=== PATIENT | female | born 1945 ===

== ENCOUNTER 2020-10-19 16:32 | Outpatient (REF) | payer MEDICARE, MEDICAID, SELFPAY ==
--- NOTE | ~2020-10-19 | XR_ITS ---
EXAMINATION: XR HAND, LEFT CLINICAL INFORMATION: Pain in unspecified hand COMPARISON: None TECHNIQUE: PA, lateral, and oblique views of the left hand. FINDINGS: Osteopenia. No fracture or dislocation. The second through fifth metacarpal phalangeal joints are fixed in flexion. There is mild multifocal interphalangeal joint space narrowing. There is radiocarpal joint space narrowing. XR/XR hand LT 2V IMPRESSION: No acute osseous abnormality of the left hand. Multifocal osteoarthritis and osteopenia.
--- NOTE | ~2020-10-19 | XR_ITS ---
EXAMINATION: XR HAND, RIGHT CLINICAL INFORMATION: Pain in unspecified hand COMPARISON: None TECHNIQUE: PA, lateral, and oblique views of the right hand. FINDINGS: Osteopenia. No fracture. No dislocation. The patient was not able to fully cooperate for standard views. The second through fifth metacarpophalangeal joints are fixed in flexion. XR/XR hand RT 2V IMPRESSION: Osteopenia. No acute osseous abnormality.
[2020-10-19 17:55] LABS: MANUAL DIFF FLAG NO
[2020-10-19 18:01] LABS: Basophils Absolute Auto 0.1 X10*3/uL (0.0-0.2); Basophils Percent Auto 0.8 % (0-2); Eosinophils Percent Auto 0.6 % (0-4); Hematocrit 38.4 % (37-47); Hemoglobin 13.1 g/dl (12.0-16.0); Imm Gran Abs Auto 0.02 X10*3/uL (0.00-0.03); Imm Gran Pct Auto 0.3 % (0.0-0.4); Lymphocytes Absolute Auto 2.2 X10*3/uL (1.2-4.9); Lymphocytes Percent Auto 33.5 % (20-40); Mean Corpuscular HGB Conc 34.1 g/dl (31.0-35.0); Mean Corpuscular Hemoglobin 29.6 pg (27.0-33.0); Mean Corpuscular Volume 86.9 fL (80-98); Mean Platelet Volume 9.9 fL (9.4-12.3); Monocytes Absolute Auto 0.4 X10*3/uL (0.1-1.2); Monocytes Percent Auto 5.6 % (2-11); Neutrophils Absolute Auto 3.8 X10*3/uL (2.0-8.3); Neutrophils Percent Auto 59.2 % (45-73); Platelet Count 267 X10*3/uL (160-400); Red Blood Count 4.42 X10*6/uL (4.20-5.50); Red Cell Distribution Width 12.3 % (11.0-16.0); White Blood Count 6.4 X10*3/uL (4.8-10.8)
[2020-10-19 18:15] LABS: Alanine Aminotransferase 10 U/L (0-31); Albumin Level 3.9 g/dL (3.5-5.0); Alkaline Phosphatase 96 U/L (39-117); Anion Gap 13 (12-20); Aspartate Amino Transferase 17 U/L (5-31); Bilirubin Total 0.4 mg/dL (0.0-1.0); Blood Urea Nitrogen 8 mg/dL (9-16); Calcium 9.1 mg/dL (8.4-10.2); Carbon Dioxide 28 mmol/L (22-29); Chloride 94 mmol/L (96-108); Cholesterol 165 mg/dL; Estimated Glomerular Filt Rate > 60; Glucose Fasting 91 mg/dL (60-99); HDL Cholesterol 72 mg/dL; LDL Cholesterol Calculated 73 mg/dl; Potassium 3.7 mmol/L (3.3-5.1); Rheumatoid Factor 126.7 IU/mL (<15.0); Sodium 131 mmol/L (135-145); Total Protein 6.7 g/dL (6.5-8.0); Triglycerides 101 mg/dL
[2020-10-19 18:37] LABS: TSH reflex Free T4 1.13 uIU/mL (0.32-4.0)
[2020-10-19 18:46] LABS: Erythrocyte Sedimentation Rate 7 MM/HR (0-20)
[2020-10-19 18:48] LABS: Folate 6.4 ng/mL (> or = 4.0); Vitamin B12 293 pg/mL (200-900)
== END 2020-10-19 16:33 | disposition home or self-care (01) ==
LOC: HO.XRAY 16:32
PROVIDERS: PCP Family Medicine; Visit Provider Family Medicine
DX: Z00.00 Encounter for general adult medical examination without abnormal findings (principal); F32.9 Major depressive disorder, single episode, unspecified; M19.041 Primary osteoarthritis, right hand; M19.042 Primary osteoarthritis, left hand; E53.8 Deficiency of other specified B group vitamins; R41.3 Other amnesia; M79.643 Pain in unspecified hand
CPT/HCPCS: 36415; 73120; 80053; 80061; 82607; 82746; 84443; 85025; 85652; 86431

== ENCOUNTER 2020-12-12 16:15 | Outpatient (REF) | payer MEDICARE, MEDICAID, SELFPAY ==
--- NOTE | ~2020-12-12 | MM_ITS ---
EXAMINATION: MM SCREENING DIGITAL BREAST TOMOSYNTHESIS, BILATERAL CLINICAL INFORMATION: Screening. Asymptomatic. Age 75. No prior mammography. No known family history breast cancer. The lifetime risk of breast cancer based on the Tyrer-Cuzick Model is 2%. COMPARISON: None (current study represents initial baseline exam). TECHNIQUE: Digital breast tomosynthesis is performed in both the craniocaudal and mediolateral oblique views along with computer-aided detection (CAD). Synthesized 2D images are generated from the tomosynthesis. FINDINGS: There are scattered areas of fibroglandular density (ACR BI-RADS breast composition Category b). There is no mass or architectural abnormality. No focal duct ectasia. No abnormal calcifications. The skin contours are smooth. MM/MM tomosynthesis screening BI IMPRESSION: No mammographic evidence of malignancy. ASSESSMENT: BI-RADS 1: Negative RECOMMENDATION: Routine annual mammography screening. This patient's information was entered into a reminder system with a target due date for their next mammogram.
== END 2020-12-12 16:16 | disposition home or self-care (01) ==
LOC: HO.MAMMO 16:15
PROVIDERS: Visit Provider Family Medicine
DX: Z12.31 Encounter for screening mammogram for malignant neoplasm of breast (principal)
CPT/HCPCS: 77063; 77067

== ENCOUNTER 2021-05-28 15:19 | Outpatient (REF) | payer MEDICARE, MEDICAID, SELFPAY ==
--- NOTE | ~2021-05-28 | XR_ITS ---
EXAMINATION: SKULL 4 VIEWS. CHEST 2 VIEWS CLINICAL INFORMATION: Nicotine dependence. Headache. COMPARISON: None TECHNIQUE: Skull 4 views. Chest 2 views. FINDINGS: CHEST: The lungs are well-expanded and clear. The heart size and pulmonary vascularity are normal. There is superior endplate compression deformity of the L1 vertebra of indeterminate age. SKULL: There is no gross bony abnormality seen. No lytic or sclerotic process. Bilateral paranasal sinuses and mastoid air cells are well-aerated. The soft tissues are normal. XR/XR chest 2V IMPRESSION: No acute cardiopulmonary process is seen. L1 superior endplate compression fracture with approximate loss of 10% vertebral height of indeterminate age. If patient has mid back pain further evaluation with MRI or bone scan can be performed. Unremarkable skull exam.
--- NOTE | ~2021-05-28 | XR_ITS ---
EXAMINATION: SKULL 4 VIEWS. CHEST 2 VIEWS CLINICAL INFORMATION: Nicotine dependence. Headache. COMPARISON: None TECHNIQUE: Skull 4 views. Chest 2 views. FINDINGS: CHEST: The lungs are well-expanded and clear. The heart size and pulmonary vascularity are normal. There is superior endplate compression deformity of the L1 vertebra of indeterminate age. SKULL: There is no gross bony abnormality seen. No lytic or sclerotic process. Bilateral paranasal sinuses and mastoid air cells are well-aerated. The soft tissues are normal. XR/XR skull <4V IMPRESSION: No acute cardiopulmonary process is seen. L1 superior endplate compression fracture with approximate loss of 10% vertebral height of indeterminate age. If patient has mid back pain further evaluation with MRI or bone scan can be performed. Unremarkable skull exam.
== END 2021-05-28 15:20 | disposition home or self-care (01) ==
LOC: HO.XRAY 15:19
PROVIDERS: PCP Family Medicine; Visit Provider Family Medicine
DX: R51.9 Headache, unspecified (principal); T14.8XXA Other injury of unspecified body region, initial encounter; F17.200 Nicotine dependence, unspecified, uncomplicated
CPT/HCPCS: 70250; 71046

== ENCOUNTER → 2021-06-15 13:00 | Outpatient (BNVA) | payer MEDICARE, MEDICAID, SELFPAY | PROVIDERS: PCP Family Medicine; Visit Provider Nurse Practitioner Family | DX: F03.90 Unspecified dementia, unspecified severity, without behavioral disturbance, psychotic disturbance, mood disturbance, and anxiety (principal); G47.00 Insomnia, unspecified | CPT/HCPCS: 99202 ==

== ENCOUNTER → 2021-07-13 15:09 | Outpatient (BNVA) | payer MEDICARE, MEDICAID, SELFPAY | PROVIDERS: PCP Family Medicine; Visit Provider Nurse Practitioner Family | DX: F03.90 Unspecified dementia, unspecified severity, without behavioral disturbance, psychotic disturbance, mood disturbance, and anxiety (principal); G47.00 Insomnia, unspecified | CPT/HCPCS: 99212 ==

== ENCOUNTER → 2021-07-25 07:57 | Outpatient (BNVA) | payer MEDICARE, MEDICAID, SELFPAY | PROVIDERS: PCP Family Medicine; Referring Provider Family Medicine; Visit Provider Physician Assistant | DX: R19.5 Other fecal abnormalities (principal) | CPT/HCPCS: 99202 ==

== ENCOUNTER → 2021-11-07 08:03 | Outpatient (BNVA) | payer MEDICARE, MEDICAID, SELFPAY | PROVIDERS: PCP Family Medicine; Visit Provider Nurse Practitioner Family | DX: G47.00 Insomnia, unspecified (principal); F03.90 Unspecified dementia, unspecified severity, without behavioral disturbance, psychotic disturbance, mood disturbance, and anxiety | CPT/HCPCS: 99212 ==

== ENCOUNTER 2021-11-13 13:29 | Emergency (ER) | payer MEDICARE, MEDICAID, SELFPAY ==
[2021-11-13 14:51] VITALS: BP 176/65; PULSE 64; RESP 18; TEMP 36.6; O2SAT 96; BMI 21.7
[2021-11-13] MEDS: Ondansetron ODT 4 MG TAB.RAPDIS TRANSLINGU (15:06)
[2021-11-13 15:26] LABS: MANUAL DIFF FLAG NO
[2021-11-13 15:28] LABS: Appearance Urine CLEAR; Color Urine DK YELLOW; Glucose Urine UA NEG (NEG); Leukocyte Esterase Urine NEG (NEG); Nitrite Urine NEG (NEG); PH 6.5 (5.0-8.0); Specific Gravity - Urine 1.025 (1.005-1.025); UACC Culture Trigger NO; Urine Blood TRACE (NEG); Urine Ketones 5 MG/DL (NEG); Urine Protein 1+ MG/DL (NEG-TRACE)
[2021-11-13 15:39] LABS: Basophils Percent Auto 0.3 % (0-2); Eosinophils Percent Auto 0.1 % (0-4); Hematocrit 37.9 % (37.0-47.0); Hemoglobin 12.8 g/dl (12.0-16.0); Imm Gran Abs Auto 0.03 X10*3/uL (0.00-0.03); Imm Gran Pct Auto 0.4 % (0.0-0.4); Lymphocytes Absolute Auto 1.3 X10*3/uL (1.2-4.9); Lymphocytes Percent Auto 18.7 % (20-40); Mean Corpuscular HGB Conc 33.8 g/dl (31.0-35.0); Mean Corpuscular Volume 88.8 fL (80.0-98.0); Mean Platelet Volume 8.7 fL (9.4-12.3); Monocytes Absolute Auto 0.2 X10*3/uL (0.1-1.2); Monocytes Percent Auto 3.3 % (2-11); Neutrophils Absolute Auto 5.2 x10*3/uL (2.0-8.3); Neutrophils Percent Auto 77.2 % (45-73); Platelet Count 341 X10*3/uL (160-400); Red Blood Count 4.27 X10*6/uL (4.20-5.50); Red Cell Distribution Width 12.1 % (11.0-16.0); White Blood Count 6.7 X10*3/uL (4.8-10.8)
[2021-11-13 15:42] LABS: Amorphous Sediment Urine 2+ /LPF; Mucus Urine 4+ /LPF; Squamous Epithelial Cell Urine 2+ /LPF; WBC Urine 0 /HPF (0-4)
[2021-11-13 15:43] LABS: Alanine Aminotransferase 35 U/L (0-31); Albumin Level 4.3 g/dL (3.5-5.0); Alkaline Phosphatase 121 U/L (39-117); Anion Gap 11 (12-20); Aspartate Amino Transferase 36 U/L (5-31); Bilirubin Direct 0.4 mg/dL (0.0-0.5); Bilirubin Total 0.8 mg/dL (0.0-1.0); Blood Urea Nitrogen 10 mg/dL (9-16); Calcium 9.3 mg/dL (8.4-10.2); Carbon Dioxide 26 mmol/L (22-29); Chloride 97 mmol/L (96-108); Estimated Glomerular Filt Rate > 60; Glucose Random 132 mg/dL (60-115); Potassium 4.2 mmol/L (3.3-5.1); Sodium 130 mmol/L (135-145); Total Protein 7.4 g/dL (6.5-8.0)
== END 2021-11-13 21:45 | disposition left against medical advice (07) ==
PROVIDERS: Emergency Provider Emergency Medicine; PCP Family Medicine
DX: R10.9 Unspecified abdominal pain (principal); R11.10 Vomiting, unspecified; Z87.891 Personal history of nicotine dependence
CPT/HCPCS: 36415; 80048; 80076; 81001; 85025; 99282; 99283

== ENCOUNTER → 2022-01-07 09:04 | Outpatient (BNVA) | payer MEDICARE, MEDICAID, SELFPAY | PROVIDERS: PCP Family Medicine; Visit Provider Nurse Practitioner Family | DX: G47.00 Insomnia, unspecified (principal); F03.90 Unspecified dementia, unspecified severity, without behavioral disturbance, psychotic disturbance, mood disturbance, and anxiety; Z79.899 Other long term (current) drug therapy | CPT/HCPCS: 99212 ==

== ENCOUNTER 2022-01-21 08:45 | Outpatient (REF) | payer MEDICARE, MEDICAID, SELFPAY ==
--- NOTE | ~2022-01-21 | MM_ITS ---
EXAMINATION: MM SCREENING DIGITAL BREAST TOMOSYNTHESIS, BILATERAL CLINICAL INFORMATION: Screening. Asymptomatic. The lifetime risk of breast cancer based on the Tyrer-Cuzick Model is 2%. COMPARISON: Mammography: 12/12/2020 (baseline) TECHNIQUE: Digital breast tomosynthesis is performed in both the craniocaudal and mediolateral oblique views along with computer-aided detection (CAD). Synthesized 2D images are generated from the tomosynthesis. Technologist notes technically challenging exam. Images tailored to patient capabilities. FINDINGS: There are scattered areas of fibroglandular density (ACR BI-RADS breast composition Category b). There are no significant masses, abnormal calcifications, or other abnormalities. Parenchymal pattern is similar to prior baseline exam. The visualized axilla and skin contours are unremarkable. MM/MM tomosynthesis screening BI IMPRESSION: -No mammographic evidence of malignancy. -Technically challenging exam tailored to patient capabilities. ASSESSMENT: BI-RADS 1: Negative RECOMMENDATION: Routine annual mammography screening. This patient's information was entered into a reminder system with a target due date for their next mammogram.
== END 2022-01-21 08:46 | disposition home or self-care (01) ==
LOC: HO.MAMMO 08:45
PROVIDERS: PCP Family Medicine; Visit Provider Family Medicine
DX: Z12.31 Encounter for screening mammogram for malignant neoplasm of breast (principal)
CPT/HCPCS: 77063; 77067

== ENCOUNTER 2022-03-02 07:53 | Outpatient (REF) | payer MEDICARE, MEDICAID, SELFPAY ==
[2022-03-02 09:19] LABS: Alanine Aminotransferase 23 U/L (0-31); Albumin Level 4.1 g/dL (3.5-5.0); Alkaline Phosphatase 102 U/L (39-117); Anion Gap 16 (12-20); Aspartate Amino Transferase 23 U/L (5-31); Bilirubin Total 0.8 mg/dL (0.0-1.0); Blood Urea Nitrogen 9 mg/dL (9-16); Calcium 9.2 mg/dL (8.4-10.2); Carbon Dioxide 22 mmol/L (22-29); Chloride 102 mmol/L (96-108); Cholesterol 174 mg/dL; Estimated Glomerular Filt Rate > 60; Glucose Fasting 84 mg/dL (60-99); HDL Cholesterol 50 mg/dL; LDL Cholesterol Calculated 100 mg/dl; Potassium 4.1 mmol/L (3.3-5.1); Sodium 136 mmol/L (135-145); Total Protein 6.8 g/dL (6.5-8.0); Triglycerides 122 mg/dL
[2022-03-02 09:26] LABS: TSH reflex Free T4 2.15 uIU/mL (0.32-4.0)
[2022-03-02 10:52] LABS: Appearance Urine Clear; Color Urine Yellow; Glucose Urine UA Negative (Negative); Leukocyte Esterase Urine Small (1+) (Negative); Nitrite Urine Negative (Negative); Specific Gravity - Urine 1.015 (1.005-1.025); UMIC TRIGGER UA YES; Urine Blood Negative (Negative); Urine Ketones Negative (Negative); Urine Protein Negative (Neg-Trace)
[2022-03-02 11:36] LABS: Bacteria Urine None Seen (None Seen); Squamous Epithelial Cell Urine 0-2 /HPF (0-2); WBC Urine 0-5 /HPF (0-5)
== END 2022-03-02 07:54 | disposition home or self-care (01) ==
LOC: HO.LAB 07:53
PROVIDERS: PCP Family Medicine; Visit Provider Family Medicine
DX: Z00.00 Encounter for general adult medical examination without abnormal findings (principal)
CPT/HCPCS: 36415; 80053; 80061; 81001; 81003; 84443

== ENCOUNTER 2022-03-26 11:41 | Outpatient (REF) | payer MEDICARE, MEDICAID, SELFPAY ==
[2022-03-26 14:15] LABS: Appearance Urine Cloudy; Color Urine Yellow; Glucose Urine UA Negative (Negative); Leukocyte Esterase Urine Large (3+) (Negative); Nitrite Urine Negative (Negative); PH 5.5 (5.0-9.0); Specific Gravity - Urine 1.015 (1.005-1.025); UMIC TRIGGER UA YES; Urine Blood Moderate (2+) (Negative); Urine Ketones Negative (Negative); Urine Protein 30 (1+) mg/dL (Neg-Trace)
[2022-03-26 14:19] LABS: Bacteria Urine None Seen (None Seen); Hyaline Casts Urine 0-2 /LPF (0-2); RBC Urine >20 /HPF (0-2); Squamous Epithelial Cell Urine 0-2 /HPF (0-2); WBC Urine >50 /HPF (0-5)
[2022-03-26 14:53] LABS: Creatinine Urine 98.01 mg/dL
== END 2022-03-26 11:42 | disposition home or self-care (01) ==
LOC: HO.LAB 11:41
PROVIDERS: Family Medicine; Visit Provider Hospitalist
DX: Z00.00 Encounter for general adult medical examination without abnormal findings (principal); N39.0 Urinary tract infection, site not specified; I10 Essential (primary) hypertension; R35.89 Other polyuria
CPT/HCPCS: 81001; 82043; 87086

== ENCOUNTER → 2022-04-03 15:42 | Outpatient (BNVA) | payer MEDICARE, MEDICAID, SELFPAY | PROVIDERS: PCP Family Medicine; Visit Provider Nurse Practitioner Family | DX: F03.90 Unspecified dementia, unspecified severity, without behavioral disturbance, psychotic disturbance, mood disturbance, and anxiety (principal); Z79.899 Other long term (current) drug therapy | CPT/HCPCS: 99212 ==

== ENCOUNTER 2022-04-16 14:11 | Outpatient (REF) | payer MEDICARE, MEDICAID, SELFPAY ==
[2022-04-16 15:23] LABS: Influenza A PCR NEGATIVE (Negative); Influenza B PCR NEGATIVE (Negative); Resp Syncy Virus RNA Qual PCR NEGATIVE (Negative); SARS COV2 PCR INHOUSE POSITIVE (Negative)
== END 2022-04-16 14:12 | disposition home or self-care (01) ==
LOC: HO.LNP 14:11
PROVIDERS: Visit Provider Nurse Practitioner Family
DX: Z20.822 Contact with and (suspected) exposure to COVID-19 (principal); J06.9 Acute upper respiratory infection, unspecified
CPT/HCPCS: 0241U

== ENCOUNTER → 2022-05-16 08:05 | Outpatient (BNVA) | payer MEDICARE, MEDICAID, SELFPAY | PROVIDERS: PCP Family Medicine; Visit Provider Nurse Practitioner Family | DX: F03.90 Unspecified dementia, unspecified severity, without behavioral disturbance, psychotic disturbance, mood disturbance, and anxiety (principal); G47.00 Insomnia, unspecified | CPT/HCPCS: 99212 ==

== ENCOUNTER 2022-07-18 08:46 | Outpatient (REF) | payer MEDICARE, MEDICAID, SELFPAY ==
--- NOTE | ~2022-07-18 | XR_ITS ---
EXAMINATION: XR HAND/WRIST, RIGHT XR HAND/WRIST, LEFT CLINICAL INFORMATION: Rheumatoid arthritis, unspecified. COMPARISON: 09/29/2020. TECHNIQUE: PA, lateral, oblique, and scaphoid views of the each hand and wrist. FINDINGS: LEFT HAND/WRIST: Bones are osteopenic. Soft tissues are swollen at the wrist. Questionable mild generalized joint space narrowing at the wrist. No focal erosions are identified. A carpal boss is noted. Slight palmar subluxation of the proximal phalangeal bases may be present at the index and long fingers. No soft tissue mineralization. Joint spaces appear relatively well preserved at the MCP and interphalangeal joints without significant osteophytes. RIGHT HAND/WRIST: Bones are markedly osteopenic. Mild osteoarthritis at the distal radioulnar joint. No acute fractures are identified. No appreciable erosions. Joint spaces appear relatively well preserved. Mild subluxation is suspected at the index and long finger proximal phalanges. No soft tissue mineralization. No acute fracture or acute malalignment. XR/XR hand wrist LT IMPRESSION: 1. Marked osteopenia in the hands and wrists. 2. No appreciable erosive changes to confirm rheumatoid arthritis in the hands and wrists, though there is likely mild palmar subluxation of the proximal phalanges at the index and long fingers bilaterally. This subluxation can be seen in the setting of rheumatoid arthritis, though is also present with other arthropathy such as systemic lupus erythematosus. 3. No soft tissue mineralization. 4. Carpal boss at the left wrist.
--- NOTE | ~2022-07-18 | XR_ITS ---
EXAMINATION: XR HAND/WRIST, RIGHT XR HAND/WRIST, LEFT CLINICAL INFORMATION: Rheumatoid arthritis, unspecified. COMPARISON: 09/29/2020. TECHNIQUE: PA, lateral, oblique, and scaphoid views of the each hand and wrist. FINDINGS: LEFT HAND/WRIST: Bones are osteopenic. Soft tissues are swollen at the wrist. Questionable mild generalized joint space narrowing at the wrist. No focal erosions are identified. A carpal boss is noted. Slight palmar subluxation of the proximal phalangeal bases may be present at the index and long fingers. No soft tissue mineralization. Joint spaces appear relatively well preserved at the MCP and interphalangeal joints without significant osteophytes. RIGHT HAND/WRIST: Bones are markedly osteopenic. Mild osteoarthritis at the distal radioulnar joint. No acute fractures are identified. No appreciable erosions. Joint spaces appear relatively well preserved. Mild subluxation is suspected at the index and long finger proximal phalanges. No soft tissue mineralization. No acute fracture or acute malalignment. XR/XR hand wrist RT IMPRESSION: 1. Marked osteopenia in the hands and wrists. 2. No appreciable erosive changes to confirm rheumatoid arthritis in the hands and wrists, though there is likely mild palmar subluxation of the proximal phalanges at the index and long fingers bilaterally. This subluxation can be seen in the setting of rheumatoid arthritis, though is also present with other arthropathy such as systemic lupus erythematosus. 3. No soft tissue mineralization. 4. Carpal boss at the left wrist.
[2022-07-18 09:52] LABS: MANUAL DIFF FLAG NO
[2022-07-18 10:44] LABS: Basophils Absolute Auto 0.1 X10*3/uL (0.0-0.2); Basophils Percent Auto 1.1 % (0-2); Eosinophils Percent Auto 0.5 % (0-4); Hematocrit 38.5 % (37.0-47.0); Hemoglobin 12.8 g/dl (12.0-16.0); Imm Gran Abs Auto 0.03 X10*3/uL (0.00-0.03); Imm Gran Pct Auto 0.5 % (0.0-0.4); Lymphocytes Absolute Auto 1.8 X10*3/uL (1.2-4.9); Lymphocytes Percent Auto 28.8 % (20-40); Mean Corpuscular HGB Conc 33.2 g/dl (31.0-35.0); Mean Corpuscular Hemoglobin 30.2 pg (27.0-33.0); Mean Corpuscular Volume 90.8 fL (80.0-98.0); Mean Platelet Volume 9.5 fL (9.4-12.3); Monocytes Absolute Auto 0.4 X10*3/uL (0.1-1.2); Monocytes Percent Auto 7.1 % (2-11); Neutrophils Absolute Auto 3.8 x10*3/uL (2.0-8.3); Platelet Count 324 X10*3/uL (160-400); Red Blood Count 4.24 X10*6/uL (4.20-5.50); Red Cell Distribution Width 12.3 % (11.0-16.0); White Blood Count 6.2 X10*3/uL (4.8-10.8)
[2022-07-18 11:12] LABS: Alanine Aminotransferase 21 U/L (0-31); Albumin Level 4.1 g/dL (3.5-5.0); Alkaline Phosphatase 98 U/L (39-117); Anion Gap 14 (12-20); Aspartate Amino Transferase 29 U/L (5-31); Bilirubin Total 0.7 mg/dL (0.0-1.0); Blood Urea Nitrogen 10 mg/dL (9-16); C Reactive Protein 0.44 mg/dL (< or = 0.50); Calcium 9.2 mg/dL (8.4-10.2); Carbon Dioxide 24 mmol/L (22-29); Chloride 101 mmol/L (96-108); Estimated Glomerular Filt Rate > 60; Glucose Random 104 mg/dL (60-115); Potassium 4.3 mmol/L (3.3-5.1); Sodium 135 mmol/L (135-145); Total Protein 6.9 g/dL (6.5-8.0)
[2022-07-18 11:53] LABS: Erythrocyte Sedimentation Rate 18 MM/HR (0-20)
[2022-07-19 04:29] LABS: HBc Num1 0.05 S/CO (0.00-0.79); HBsAGNum1 0.25 S/CO (0.00-0.99); Hepatitis A Antibody IgM 0.51 Index (0-0.79); Hepatitis B Core Antibody Nonreactive (Nonreactive); Hepatitis B Surface Antigen Negative (Negative); ~HepC Num1 0.09 S/CO (0.00-0.79); ~Hepatitis A Antibody IgM Nonreactive (Nonreactive); ~Hepatitis B Surface Antibody NONREACTIVE (Nonreactive); ~Hepatitis C Antibody Nonreactive (Nonreactive)
[2022-07-21 17:19] LABS: TS Negative Control Passed; TS Panel A 0; TS Panel B 0; TS Positive Control Passed; TSpotTB Negative (Negative)
[2022-07-22 13:39] LABS: IgA 421 mg/dL (70-320); IgG 1148 mg/dL (600-1540); IgM 102 mg/dL (50-300)
[2022-07-22 23:13] LABS: Prot Elec - Albumin 4.1 g/dL (3.8-4.8); Prot Elec - Alpha1 0.4 g/dL (0.2-0.3); Prot Elec - Beta 1 0.5 g/dL (0.4-0.6); Prot Elec - Beta 2 0.5 g/dL (0.2-0.5); Prot Elec - Gamma 1.1 g/dL (0.8-1.7); Prot Elec - Total Protein 7.4 g/dL (6.1-8.1)
== END 2022-07-18 08:47 | disposition home or self-care (01) ==
LOC: HO.LAB 08:46
PROVIDERS: PCP Family Medicine; Visit Provider Student in an Organized Health Care Education/Training Program
DX: M05.79 Rheumatoid arthritis with rheumatoid factor of multiple sites without organ or systems involvement (principal); M80.80XA Other osteoporosis with current pathological fracture, unspecified site, initial encounter for fracture; M21.949 Unspecified acquired deformity of hand, unspecified hand; F03.90 Unspecified dementia, unspecified severity, without behavioral disturbance, psychotic disturbance, mood disturbance, and anxiety; Z20.2 Contact with and (suspected) exposure to infections with a predominantly sexual mode of transmission; Z11.59 Encounter for screening for other viral diseases; Z11.7 Encounter for testing for latent tuberculosis infection; Z79.899 Other long term (current) drug therapy
CPT/HCPCS: 36415; 73110; 73130; 80053; 82784; 84165; 85025; 85652; 86140; 86334; 86481; 86704; 86706; 86709; 86803; 87340; 99202

== ENCOUNTER → 2022-08-15 09:30 | Outpatient (BNVA) | payer MEDICARE, MEDICAID, SELFPAY | PROVIDERS: PCP Family Medicine; Visit Provider Nurse Practitioner Family | DX: G47.00 Insomnia, unspecified (principal); F03.90 Unspecified dementia, unspecified severity, without behavioral disturbance, psychotic disturbance, mood disturbance, and anxiety | CPT/HCPCS: 99212 ==

== ENCOUNTER 2022-11-27 07:32 | Outpatient (REF) | payer MEDICARE, MEDICAID, SELFPAY ==
[2022-11-27 11:36] LABS: MANUAL DIFF FLAG NO
[2022-11-27 11:43] LABS: Basophils Absolute Auto 0.1 X10*3/uL (0.0-0.2); Basophils Percent Auto 1.2 % (0-2); Eosinophils Absolute Auto 0.1 X10*3/uL (0.0-0.4); Eosinophils Percent Auto 1.6 % (0-4); Hemoglobin 12.5 g/dl (12.0-16.0); Imm Gran Abs Auto 0.01 X10*3/uL (0.00-0.03); Imm Gran Pct Auto 0.2 % (0.0-0.4); Lymphocytes Absolute Auto 2.6 X10*3/uL (1.2-4.9); Lymphocytes Percent Auto 44.8 % (20-40); Mean Corpuscular HGB Conc 32.9 g/dl (31.0-35.0); Mean Corpuscular Hemoglobin 31.6 pg (27.0-33.0); Mean Platelet Volume 9.8 fL (9.4-12.3); Monocytes Absolute Auto 0.5 X10*3/uL (0.1-1.2); Monocytes Percent Auto 8.2 % (2-11); Neutrophils Absolute Auto 2.5 x10*3/uL (2.0-8.3); Platelet Count 281 X10*3/uL (160-400); Red Blood Count 3.96 X10*6/uL (4.20-5.50); Red Cell Distribution Width 13.2 % (11.0-16.0); White Blood Count 5.7 X10*3/uL (4.8-10.8)
[2022-11-27 11:51] LABS: Appearance Urine Cloudy; Color Urine Dark Yellow; Glucose Urine UA Negative (Negative); Leukocyte Esterase Urine Moderate (2+) (Negative); Nitrite Urine Negative (Negative); PH 5.5 (5.0-9.0); UMIC TRIGGER UA YES; Urine Blood Negative (Negative); Urine Ketones Trace mg/dL (Negative); Urine Protein Negative (Neg-Trace)
[2022-11-27 12:07] LABS: Bacteria Urine None Seen (None Seen); Calcium Oxalate Crystals Urine Present; Hyaline Casts Urine 0-2 /LPF (0-2); RBC Urine 0-2 /HPF (0-2)
[2022-11-27 12:15] LABS: Alanine Aminotransferase 24 U/L (0-31); Albumin Level 3.8 g/dL (3.5-5.0); Alkaline Phosphatase 87 U/L (39-117); Anion Gap 14 (12-20); Aspartate Amino Transferase 24 U/L (5-31); Bilirubin Total 0.5 mg/dL (0.0-1.0); Blood Urea Nitrogen 8 mg/dL (9-16); C Reactive Protein 0.23 mg/dL (< or = 0.50); Calcium 9.2 mg/dL (8.4-10.2); Carbon Dioxide 25 mmol/L (22-29); Chloride 103 mmol/L (96-108); Cholesterol 162 mg/dL; Estimated Glomerular Filt Rate > 60; Glucose Fasting 100 mg/dL (60-99); Glucose Random 100 mg/dL (60-115); HDL Cholesterol 61 mg/dL; LDL Cholesterol Calculated 73 mg/dl; Potassium 3.6 mmol/L (3.3-5.1); Sodium 138 mmol/L (135-145); Total Protein 6.5 g/dL (6.5-8.0); Triglycerides 142 mg/dL
[2022-11-27 12:22] LABS: Creatinine Urine 260.15 mg/dL; Microalbum/Creatinine Ratio Ur 6.9 ug/mg cr
[2022-11-27 12:31] LABS: TSH reflex Free T4 2.86 uIU/mL (0.32-4.0)
[2022-11-27 12:35] LABS: Erythrocyte Sedimentation Rate 6 MM/HR (0-20)
== END 2022-11-27 07:33 | disposition home or self-care (01) ==
LOC: HO.WFDLDS 07:32
PROVIDERS: Student in an Organized Health Care Education/Training Program; Visit Provider Family Medicine
DX: Z00.00 Encounter for general adult medical examination without abnormal findings (principal); M05.79 Rheumatoid arthritis with rheumatoid factor of multiple sites without organ or systems involvement; I10 Essential (primary) hypertension
CPT/HCPCS: 36415; 80053; 80061; 81001; 82043; 84443; 85025; 85652; 86140

== ENCOUNTER 2022-12-13 08:43 | Outpatient (REF) | payer MEDICARE, MEDICAID, SELFPAY ==
--- NOTE | ~2022-12-13 | MM_ITS ---
EXAMINATION: BONE DENSITOMETRY CLINICAL INDICATION: Osteoporosis. COMPARISON: This is the patient's baseline examination. TECHNIQUE: Using a [employer] DXA System (software version: 13.1) manufactured by [employer], dual-energy x-ray absorptiometry was performed of the lumbar spine and left hip. The images are of good technical quality. Summary results are attached. FINDINGS: LEFT FEMUR, NECK: BMD 0.567 g/cm2, Z-score -1.1, T-score -3.4, osteoporosis. LEFT FEMUR, TOTAL: BMD 0.618 g/cm2, Z-score -0.9, T-score -3.1, osteoporosis. AP SPINE L1-L4: BMD 0.455 g/cm2, Z-score -3.8, T-score -6.0, osteoporosis. IDENTIFIED RISK FACTORS: Menopause, dementia, history of fracture (adult), rheumatoid arthritis. HISTORY OF FRACTURE: Spine. MEDICATIONS: Calcium. MM/XR DEXA axial skeleton IMPRESSION: 1. DIAGNOSIS: Severe osteoporosis based on the lowest T-score value of -6.0 in the lumbar spine and history of fracture of spine applying World Health Organization criteria. 2. 10-YEAR FRACTURE RISK PREDICTION, FRAX: According to the guidelines, FRAX calculation should only be performed on patients in the osteopenia bone density category. Therefore, FRAX was not performed on this patient. 3. Treatment Recommendations: NOF guidelines recommend consideration for treatment in postmenopausal women and men age 50 and older presenting with the following: -A hip or vertebral (clinical or morphometric) fracture. -T-score less than or equal to -2.5 at the femoral neck or spine after appropriate evaluation to exclude secondary causes. -Low bone mass at the hip or spine and a 10-year fracture probability by FRAX of greater than or equal to 3% for hip fracture or greater than or equal to 20% for major osteoporotic fracture based on the [place] adapted WHO algorithm. 4. Other Recommendations: All treatment decisions require clinical judgment and consideration of individual patient factors, including patient preferences, comorbidities, previous drug use, risk factors not captured in the FRAX model (e.g. frailty, falls, vitamin D deficiency, increased bone turnover, interval significant decline in bone density) and possible under or overestimation of fracture risk by FRAX. Additional medical evaluation for secondary cause of low bone mineral density may be appropriate. FUTURE SCAN RECOMMENDATION: People with diagnosed cases of osteoporosis or at high risk for fracture should have regular bone mineral density tests. For patients eligible for Medicare, routine testing is allowed once every 2 years. The testing frequency can be increased to one year for patients who have rapidly progressing disease, those who are receiving or discontinuing medical therapy to restore bone mass, or have additional risk factors.
== END 2022-12-13 08:44 | disposition home or self-care (01) ==
LOC: HO.MAMMO 08:43
PROVIDERS: PCP Family Medicine; Visit Provider Student in an Organized Health Care Education/Training Program
DX: Z13.820 Encounter for screening for osteoporosis (principal); Z78.0 Asymptomatic menopausal state; S32.010D Wedge compression fracture of first lumbar vertebra, subsequent encounter for fracture with routine healing
CPT/HCPCS: 77080

== ENCOUNTER → 2022-12-13 08:45 | Outpatient (BNV) | payer MEDICARE, MEDICAID, SELFPAY | PROVIDERS: PCP Family Medicine; Visit Provider Radiology Diagnostic Radiology | DX: M81.0 Age-related osteoporosis without current pathological fracture (principal) | CPT/HCPCS: 77080 ==

== ENCOUNTER 2022-12-18 16:12 | Outpatient (AMB) | payer MEDICARE, MEDICAID, SELFPAY ==
[2022-12-18 16:11] VITALS: BP 130/84; PULSE 78; RESP 16; TEMP 36.7; O2SAT 98; BMI 22.7
--- NOTE | 2022-12-18 16:11 | A.OFFVIS_ITS ---
Intake Vital Signs 12/18/22 16:11 Height 5 ft Weight 116 lb BMI 22.7 BP 130/84 Blood Pressure Location Rt brachial Position Sitting Respiration 16 Pulse 78 Pulse Source Pulse Oximeter Temp 98.0 F Temp Source Skin Pulse Oximetry (%) 98 Oxygen Delivery Method Room Air Intake Visit Reasons: RA Parking Assistant Required: No Accompanied by: Daughter Allergies aspirin [From [facility]ige Aspirin] Allergy (Unknown, Verified 12/18/22 16:22) nose bleeds Medication List - Last Reconciled 12/18/22 by Maikol Brown MD cetirizine (All Day Allergy (cetirizine)) 10 mg PO DAILY PRN 90 days diclofenac sodium 1% (Voltaren Arthritis Pain) 2 grams topical QID 30 days donepezil 5 mg PO BEDTIME fluticasone propionate 50 mcg/actuation (Flonase Allergy Relief) 1 spray intranasal Q12H 30 days folic acid 1 mg PO DAILY melatonin 3 mg PO BEDTIME 30 days methotrexate sodium 15 mg (6 x 2.5 mg) PO QWEEK olopatadine 0.2% (Pataday Once Daily Relief) 1 drp ophthalmic (eye) DAILY PRN 30 days quetiapine (Seroquel) 1 tab at 5pm and 1 tab at bedtime. 30 days HPI HPI Comments History of Present Illness Details This is a 77 year old female with seropositive RA who returns for follow-up. She has history of dementia. She presents with her 2 daughters. He r daughter patient's symptoms seem to have improved on methotrexate. She ran out of methotrexate to 3 weeks ago and of her symptoms of joint pain recurred. She is currently doing well. She restarted methotrexate 2-3 weeks ago. Patient is walking well. Daughter cannot think of any side effects related to methotrexate. Daughter would like to discuss methotrexate versus Plaquenil risks and benefits. Initial history: 77-year-old female with past medical history of dementia presents with her daughter for evaluation of bilateral hand pain. Per daughter patient only started living with her children over the last 2 years. She has had hand pain and deformities for many years. Per daughter patient was never evaluated by a director communications and was never on DMARDs. She takes Tylenol as needed for pain in her hands. Does not use NSAIDs as they cause GI upset. Two years ago patient was wondering outside her house and fell and broke her back. [facility] Medical History Arthritis of both hands Cervicalgia Compression fracture of L1 vertebra Dementia Depression Screening for osteoporosis Sleep apnea Smoker Weakness of both lower extremities Surgical History Hx of tubal ligation Family History Mother Bone cancer Social History Household Members Other:: lives with daughter- Housing: Apartment Are you a primary youth career specialist to a significant other at home: No Do you presently have visiting nurse or other home services: Yes ([employer] 18/11) Alcohol intake: never Patient Tobacco Use Status: Former Tobacco user Quit Date: 2020 Tobacco use type: Cigarette Cigarette Packs Per Day: 3 Cigarettes Per Day: 60.0 Years Smoked: 40+ e-Cigarette/Vaping Use: Never Used Second Hand Smoke Exposure: No service: No Current occupational status: retired Current occupational exposures/hazards: No Cognitive needs: No Hearing needs: No Vision needs: No Review of Systems Const Details: ROS is obtained from patient's daughter due to patient's history of dementia. According to daughter patient has no complaints today Physical Exam Vital Signs: Last Vital Signs Temp 98.0 F 12/18/22 16:11 Pulse 78 12/18/22 16:11 Resp 16 12/18/22 16:11 Pulse Ox 98 12/18/22 16:11 Oxygen Delivery Method Room Air 12/18/22 16:11 BMI result Body Mass Index 22.7 Const General: cooperative and healthy appearing Nutritional Appearance: average body habitus Orientation/consciousness: oriented to person HEENT Head: Yes normocephalic and Yes atraumatic Resp Effort & Inspection: normal respiratory effort and able to speak in complete sentences Skin General skin exam: no rashes or lesions noted Neuro General: oriented to person Extrem Other: Extensive RA deformities of both hands Right wrist with piano conway sign. MCP enlargement with ulnar deviation of her fingers. No tender MCPs or PIP is in the right hand. Negative MCP squeeze test right hand Left wrist without swelling or tenderness. [place] neck deformities of the left hand fingers Nontender Tender MCPs and PIPs left hand Negative MCP squeeze test left hand Normal range of motion of both shoulders and elbows without pain No ankle swelling or tenderness Crowded toes bilaterally Negative MTP squeeze test No MTP tenderness Normal gait Assessment & Plan Assessment & Plan (1) Rheumatoid arthritis: Comment: +RF CCP pending erosive dx 07/18 but started many years ago MTX 07/18 effective Code(s): M06.9 - Rheumatoid arthritis, unspecified Qualifiers: Rheumatoid arthritis location: multiple sites Rheumatoid factor presence: with rheumatoid factor Qualified Code(s): M05.79 - Rheumatoid arthritis with rheumatoid factor of multiple sites without organ or systems involvement Plan: This is a 77-year-old female seropositive RA and dementia presents with her daughter for follow-up. Patient has had untreated seropositive erosive RA for many years without treatment. Methotrexate started 07/18 and it is effective. There are no swollen or tender joints on exam today. Continue methotrexate 15 mg once weekly and folic acid 1 mg daily Check safety labs in 2 months Follow-up in 4 months (2) Osteoporosis with fracture: Code(s): M80.80XA - Other osteoporosis with current pathological fracture, unspecified site, initial encounter for fracture Plan: Chest x-ray showed an L1 fracture in 2020. Likely due to osteoporosis. DEXA scan was performed but not read yet. Plan I spent 27 minutes reviewing patient's chart, evaluating patient, ordering diagnostic workup, counseling patient & her daughter and documenting in the chart Orders: Orders Comprehensive Met. Panel 2 Months M06.9 - Rheumatoid arthritis, unspecified C Reactive Protein 2 Months M06.9 - Rheumatoid arthritis, unspecified Complete Blood Count Auto Diff 2 Months M06.9 - Rheumatoid arthritis, unspecified Erythrocyte Sedimentation Rate 2 Months M06.9 - Rheumatoid arthritis, unspecified Cyclic Citrullinated Peptide 2 Months M06.9 - Rheumatoid arthritis, unspecified Coding Level of Care Code Est Pt Level 4 (89836) Diagnoses Rheumatoid arthritis M05.79 Rheumatoid arthritis location: multiple sites Rheumatoid factor presence: with rheumatoid factor Osteoporosis with fracture M80.80XA
== END 2022-12-18 16:38 | disposition home or self-care (01) ==
PROVIDERS: PCP Family Medicine; Visit Provider Student in an Organized Health Care Education/Training Program
DX: M05.79 Rheumatoid arthritis with rheumatoid factor of multiple sites without organ or systems involvement (principal); M80.80XA Other osteoporosis with current pathological fracture, unspecified site, initial encounter for fracture
CPT/HCPCS: 99214

== ENCOUNTER → 2022-12-18 16:12 | Outpatient (BNVA) | payer MEDICARE, MEDICAID, SELFPAY | PROVIDERS: Visit Provider Student in an Organized Health Care Education/Training Program | DX: M05.79 Rheumatoid arthritis with rheumatoid factor of multiple sites without organ or systems involvement (principal); M80.80XD Other osteoporosis with current pathological fracture, unspecified site, subsequent encounter for fracture with routine healing | CPT/HCPCS: 99212 ==

== ENCOUNTER 2023-01-17 10:43 | Outpatient (REF) | payer MEDICARE, MEDICAID, SELFPAY ==
[2023-01-17 14:27] LABS: MANUAL DIFF FLAG NO
[2023-01-17 14:38] LABS: Basophils Absolute Auto 0.1 X10*3/uL (0.0-0.2); Eosinophils Absolute Auto 0.1 X10*3/uL (0.0-0.4); Eosinophils Percent Auto 1.1 % (0-4); Hematocrit 38.4 % (37.0-47.0); Hemoglobin 12.7 g/dl (12.0-16.0); Imm Gran Abs Auto 0.02 X10*3/uL (0.00-0.03); Imm Gran Pct Auto 0.3 % (0.0-0.4); Lymphocytes Absolute Auto 2.2 X10*3/uL (1.2-4.9); Lymphocytes Percent Auto 35.3 % (20-40); Mean Corpuscular HGB Conc 33.1 g/dl (31.0-35.0); Mean Corpuscular Hemoglobin 31.3 pg (27.0-33.0); Mean Corpuscular Volume 94.6 fL (80.0-98.0); Mean Platelet Volume 9.6 fL (9.4-12.3); Monocytes Absolute Auto 0.5 X10*3/uL (0.1-1.2); Monocytes Percent Auto 8.6 % (2-11); Neutrophils Absolute Auto 3.3 x10*3/uL (2.0-8.3); Neutrophils Percent Auto 53.7 % (45-73); Platelet Count 256 X10*3/uL (160-400); Red Blood Count 4.06 X10*6/uL (4.20-5.50); Red Cell Distribution Width 12.2 % (11.0-16.0); White Blood Count 6.2 X10*3/uL (4.8-10.8)
[2023-01-17 15:00] LABS: Alanine Aminotransferase 32 U/L (0-31); Albumin Level 3.9 g/dL (3.5-5.0); Alkaline Phosphatase 93 U/L (39-117); Anion Gap 12 (12-20); Aspartate Amino Transferase 34 U/L (5-31); Bilirubin Total 0.7 mg/dL (0.0-1.0); Blood Urea Nitrogen 12 mg/dL (9-16); C Reactive Protein 0.16 mg/dL (< or = 0.50); Carbon Dioxide 26 mmol/L (22-29); Chloride 102 mmol/L (96-108); Estimated Glomerular Filt Rate > 60; Glucose Random 117 mg/dL (60-115); Phosphorus 3.4 mg/dL (2.7-4.5); Potassium 3.7 mmol/L (3.3-5.1); Sodium 136 mmol/L (135-145); Total Protein 6.5 g/dL (6.5-8.0)
[2023-01-17 15:31] LABS: Erythrocyte Sedimentation Rate 5 MM/HR (0-20)
[2023-01-20 14:39] LABS: Calcium (PTHI) 9.1 mg/dL (8.6-10.4); PTHI 37 pg/mL (16-77)
[2023-01-20 16:24] LABS: Cyclic Citrullinated Peptide 26 UNITS
== END 2023-01-17 10:44 | disposition home or self-care (01) ==
LOC: HO.WFDLDS 10:43
PROVIDERS: Visit Provider Student in an Organized Health Care Education/Training Program
DX: M81.0 Age-related osteoporosis without current pathological fracture (principal); M06.9 Rheumatoid arthritis, unspecified; F03.90 Unspecified dementia, unspecified severity, without behavioral disturbance, psychotic disturbance, mood disturbance, and anxiety; G47.00 Insomnia, unspecified; Z13.21 Encounter for screening for nutritional disorder
CPT/HCPCS: 36415; 80053; 82306; 83970; 84100; 85025; 85652; 86140; 86200; 99212

== ENCOUNTER 2023-01-17 11:16 | Outpatient (AMB) | payer MEDICARE, MEDICAID, SELFPAY ==
--- NOTE | 2023-01-17 11:20 | A.OFFVIS_ITS ---
Intake Vital Signs 01/17/23 11:23 Weight 118 lb 4 oz BP 112/66 Blood Pressure Location Lt brachial Position Sitting Pulse 67 Pulse Source Pulse Oximeter Pulse Oximetry (%) 98 Oxygen Delivery Method Room Air Intake Visit Reasons: 3m follow up - LVM Intake Note: F/U Memory Pressroom Worker Required: Yes Allergies aspirin [From Paige Aspirin] Allergy (Unknown, Verified 01/17/23 11:21) nose bleeds HPI HPI Comments History of Present Illness Details 77 y/o female patient presents with her daughter for follow up of dementia. Pt's combative behavior has resolved after decreased donepezil to 5 mg. She still can have some confusion. She uses seroquel 25 mg qHS. Pt rarely use extra seroquel. Pt's daughter reports that patient still has difficulty to staying sleep, but a little better with melatonin. She only can sleep with her lights on. Pt has [employer] 24/7 and can help for ADLs and daily activities. She does also some cognitive and physical activities during daytime. [facility] Medical History Arthritis of both hands Cervicalgia Compression fracture of L1 vertebra Dementia Depression Screening for osteoporosis Sleep apnea Smoker Weakness of both lower extremities Surgical History Hx of tubal ligation Family History Mother Bone cancer Social History (Updated 01/17/23 @ 11:23 by Judie Mejia CMA) Household Members Other:: lives with daughter- Housing: Apartment Are you a primary care support representative to a significant other at home: No Do you presently have visiting nurse or other home services: Yes ([employer] 24/7) Alcohol intake: never Patient Tobacco Use Status: Former Tobacco user Quit Date: 2020 Tobacco use type: Cigarette Cigarette Packs Per Day: 3 Cigarettes Per Day: 60.0 Years Smoked: 40+ e-Cigarette/Vaping Use: Never Used Second Hand Smoke Exposure: No service: No Current occupational status: retired Current occupational exposures/hazards: No Cognitive needs: No Hearing needs: No Vision needs: No Review of Systems Const All systems reviewed & are unremarkable except as noted in HPI and below ENT Reports Normal hearing present Neuro Reports Normal hearing present Physical Exam Vital Signs: Last Vital Signs Pulse 67 01/17/23 11:23 BP 112/66 01/17/23 11:23 Pulse Ox 98 01/17/23 11:23 Oxygen Delivery Method Room Air 01/17/23 11:23 Const General: cooperative and comfortable Nutritional Appearance: average body habitus Orientation/consciousness: oriented to person and oriented to place Limitations: language barrier Neck Neck: Yes full ROM and Yes supple Resp Effort & Inspection: normal respiratory effort and able to speak in complete sentences Neuro General: oriented to person, oriented to place and moves all extremities Cranial nerves: Yes Normal hearing present and Yes Ability to bilaterally elevate shoulders present Motor exam (neuro): Other motor observations present (oromandibular dystonia) Psych Appearance: grossly normal Mental Status: mental status grossly normal Assessment & Plan Assessment & Plan (1) Dementia: Comment: Advanced. Code(s): F03.90 - Unspecified dementia, unspecified severity, without behavioral disturbance, psychotic disturbance, mood disturbance, and anxiety (2) Insomnia: Code(s): G47.00 - Insomnia, unspecified Plan Advised patient to continue to take donepezil to 5 mg qHS, and monitor side effects including GI upset or diarrhea. Continue to take seroquel 25 mg qHS and may use extra seroquel 25 mg as needed. Advised patient to continue to take melatonin 3 mg qHS to help her staying sleep. Medications: Refilled melatonin 3 mg PO BEDTIME 30 tabs 2RF sleep 30 days donepezil 5 mg PO BEDTIME 90 tabs 0RF Coding Level of Care Code Est Pt Level 4 (75420) Diagnoses Dementia F03.90 Insomnia G47.00
[2023-01-17 11:23] VITALS: BP 112/66; PULSE 67; O2SAT 98
== END 2023-01-17 11:43 | disposition home or self-care (01) ==
PROVIDERS: Visit Provider Nurse Practitioner Family
DX: F03.90 Unspecified dementia, unspecified severity, without behavioral disturbance, psychotic disturbance, mood disturbance, and anxiety (principal); G47.00 Insomnia, unspecified
CPT/HCPCS: 99214

== ENCOUNTER 2023-02-20 16:42 | Outpatient (REF) | payer MEDICARE, MEDICAID, SELFPAY ==
[2023-02-20 16:53] LABS: MANUAL DIFF FLAG NO
[2023-02-20 17:54] LABS: Basophils Absolute Auto 0.1 X10*3/uL (0.0-0.2); Eosinophils Absolute Auto 0.1 X10*3/uL (0.0-0.4); Eosinophils Percent Auto 1.6 % (0-4); Hematocrit 37.7 % (37.0-47.0); Hemoglobin 12.8 g/dl (12.0-16.0); Imm Gran Abs Auto 0.02 X10*3/uL (0.00-0.03); Imm Gran Pct Auto 0.3 % (0.0-0.4); Lymphocytes Absolute Auto 3.3 X10*3/uL (1.2-4.9); Lymphocytes Percent Auto 47.1 % (20-40); Mean Corpuscular Hemoglobin 31.7 pg (27.0-33.0); Mean Corpuscular Volume 93.3 fL (80.0-98.0); Mean Platelet Volume 9.6 fL (9.4-12.3); Monocytes Absolute Auto 0.5 X10*3/uL (0.1-1.2); Monocytes Percent Auto 7.8 % (2-11); Neutrophils Absolute Auto 2.9 x10*3/uL (2.0-8.3); Neutrophils Percent Auto 42.2 % (45-73); Platelet Count 256 X10*3/uL (160-400); Red Blood Count 4.04 X10*6/uL (4.20-5.50); Red Cell Distribution Width 12.7 % (11.0-16.0); White Blood Count 6.9 X10*3/uL (4.8-10.8)
[2023-02-20 18:34] LABS: Alanine Aminotransferase 34 U/L (0-31); Alkaline Phosphatase 105 U/L (39-117); Anion Gap 12 (12-20); Aspartate Amino Transferase 32 U/L (5-31); Bilirubin Total 0.4 mg/dL (0.0-1.0); Blood Urea Nitrogen 10 mg/dL (9-16); Calcium 9.4 mg/dL (8.4-10.2); Carbon Dioxide 29 mmol/L (22-29); Chloride 99 mmol/L (96-108); Estimated Glomerular Filt Rate > 60; Glucose Random 105 mg/dL (60-115); Potassium 3.7 mmol/L (3.3-5.1); Sodium 136 mmol/L (135-145); Total Protein 6.7 g/dL (6.5-8.0)
== END 2023-02-20 16:43 | disposition home or self-care (01) ==
LOC: HO.LAB 16:42
PROVIDERS: Absent Provider Family Medicine; PCP Family Medicine; Visit Provider Student in an Organized Health Care Education/Training Program
DX: M05.79 Rheumatoid arthritis with rheumatoid factor of multiple sites without organ or systems involvement (principal); M81.0 Age-related osteoporosis without current pathological fracture
CPT/HCPCS: 36415; 80053; 85025

== ENCOUNTER 2023-03-01 11:15 | Outpatient (REF) | payer MEDICARE, MEDICAID, SELFPAY ==
[2023-03-01 13:39] LABS: Appearance Urine Turbid; Color Urine Dark Yellow; Glucose Urine UA Negative (Negative); Leukocyte Esterase Urine Large (3+) (Negative); Nitrite Urine Negative (Negative); PH 5.5 (5.0-9.0); UMIC TRIGGER UA YES; Urine Blood Moderate (2+) (Negative); Urine Ketones Negative (Negative); Urine Protein Trace mg/dL (Neg-Trace)
[2023-03-01 13:54] LABS: Bacteria Urine None Seen (None Seen); Calcium Oxalate Crystals Urine Present; Hyaline Casts Urine 0-2 /LPF (0-2); Squamous Epithelial Cell Urine 0-2 /HPF (0-2); WBC Urine 21-50 /HPF (0-5)
== END 2023-03-01 11:16 | disposition home or self-care (01) ==
LOC: HO.HMGCLNP 11:15
PROVIDERS: PCP Family Medicine; Visit Provider Family Medicine
DX: N39.0 Urinary tract infection, site not specified (principal)
CPT/HCPCS: 81001; 87086; 87088; 87186

== ENCOUNTER 2023-03-05 15:59 | Outpatient (AMB) | payer MEDICARE, MEDICAID, SELFPAY ==
--- NOTE | 2023-03-05 16:04 | MHC.PC.OV ---
Vital Signs 03/05/23 16:05 Height 5 ft Weight 120 lb 4 oz BMI 23.5 BP 110/70 Blood Pressure Location Lt brachial Position Sitting Pulse 64 Pulse Source Pulse Oximeter Pulse Oximetry (%) 98 Oxygen Delivery Method Room Air Intake Visit Reasons: Extended exam with f/u labs and health maintenance Intake Note: Patient is here for extended exam and follow up on labs, and health maintenance. Allergies aspirin [From Paige Aspirin] Allergy (Unknown, Verified 03/05/23 16:10) nose bleeds Tobacco use date assessed: 03/05/23 HPI Extended exam with f/u labs and health maintenance HPI Details 77 y/o female presents for an extended exam with f/u labs and health maintenance. Labs were drawn 02/20/23. Reviewed labs with pt. Ongoing mildly elevated liver enzymes - AST of 32 and ALT 34. No recent lipid panel. Positive urinalysis about 2 days ago and had sent a script for nitrofurantoin. [facility] Medical History Arthritis of both hands Cervicalgia Compression fracture of L1 vertebra Dementia Depression Screening for osteoporosis Sleep apnea Smoker Weakness of both lower extremities Surgical History Hx of tubal ligation Family History Mother Bone cancer Social History (Updated 01/17/23 @ 11:23 by Judie Mejia CMA) Household Members Other:: lives with daughter- Housing: Apartment Are you a primary resident care assistant to a significant other at home: No Do you presently have visiting nurse or other home services: Yes ([employer] 24/) Alcohol intake: never Patient Tobacco Use Status: Former Tobacco user Quit Date: 2020 Tobacco use type: Cigarette Cigarette Packs Per Day: 3 Cigarettes Per Day: 60.0 Years Smoked: 40+ Packs Per Year: 0 Packs per year/per ci.00 e-Cigarette/Vaping Use: Never Used Second Hand Smoke Exposure: No service: No Current occupational status: retired Current occupational exposures/hazards: No Cognitive needs: No Hearing needs: No Vision needs: No Questionnaire Thrive Questionnaire Date Thrive assessed: 12/19/20 JONATHAN-7 AMB Questionnaire JONATHAN-7 Date JONATHAN - 7 assessed: 12/19/20 Source: Developed by Drs. Ricky Quintana, Jessica Norman, Michel Sanchez and colleagues, with an educational amita from [employer]. Review of Systems Const Denies chills, Denies fatigue, Denies fever(s), Denies headache(s) and Denies weakness Eyes Denies change in vision ENT Denies dizziness, Denies headache(s), Denies hearing loss, Denies nasal congestion, Denies sinus pain, Denies sinus pressure and Denies sore throat Card Denies chest pain, Denies lightheadedness, Denies dyspnea and Denies other (palpitations) Resp Denies cough, Denies dyspnea and Denies wheezing GI Denies abdominal pain, Denies melena, Denies hematochezia, Denies change in bowel habits, Denies dyspepsia and Denies nausea Denies hematuria and Denies dysuria Musc Denies abnormal gait, Denies myalgias, Denies arthralgias, Denies numbness and Denies tingling Skin/Breast Denies rash, Denies unusual bruising and Denies wounds Neuro Denies abnormal gait, Denies dizziness, Denies headache(s), Denies memory loss, Denies numbness, Denies Sensory deficit (Neuro), Denies tingling and Denies weakness Psych Denies anxiety, Denies depression and Denies memory loss Endo Denies cold intolerance, Denies fatigue, Denies heat intolerance, Denies polydipsia and Denies polyuria Dell/Lymph Denies easy bleeding and Denies easy bruising Aller/Immun Denies wheezing Physical exam (Primary Care) Vital Signs: Last Vital Signs Pulse 64 03/05/23 16:05 BP 110/70 03/05/23 16:05 Pulse Ox 98 03/05/23 16:05 Oxygen Delivery Method Room Air 03/05/23 16:05 BMI result Body Mass Index 23.5 Tobacco/Smoking Status: Tobacco use Status Tobacco use date assessed 03/05/23 03/05/23 16:12 Patient Tobacco Use Status Former Tobacco user 03/05/23 16:12 Tobacco use type Cigarette 03/05/23 16:12 e-Cigarette/Vaping Use Never Used 03/05/23 16:12 Thrive Assessment: Date of Thrive Assessment Date Thrive assessed 12/19/20 03/05/23 16:12 Const General: no acute distress, well developed, alert and awake Nutritional Appearance: well nourished Orientation/consciousness: patient oriented x3 HENMT Head: Yes normocephalic and Yes atraumatic Ears: hearing grossly normal bilaterally and TM's normal bilaterally General nose exam: Normal external nose present and Normal nares present Mouth: Normal oral and palatal mucosa present and moist mucous membranes Teeth and gingiva: dentition normal Throat: Yes posterior oropharynx normal Eyes General: appearance normal, both eyes and all related structures Pupils: Equal, round and reactive pupils present and Pupil accommodation reflex normal EOM: EOMs intact bilaterally Neck Neck: Yes normal visual inspection, Yes no lymphadenopathy and Yes trachea midline Thyroid: Thyroid normal Carotids: no bruits Lymphatic: no lymphadenopathy noted Chest Chest palpation & inspection: normal inspection of the chest Resp Effort & Inspection: normal respiratory effort Auscultation: clear to auscultation bilaterally Cardio Rate: regular rate Rhythm: regular rhythm Heart sounds: S1 normal heart sound present, S2 normal heart sound present, no gallops, no murmurs and no rubs Bruits: no abdominal aortic bruits and no carotid bruits GI Palpation (GI): No Abdominal aortic bruit present, Soft to palpation, nontender, No hepatosplenomegaly present and No Rebound tenderness present Auscultation: normal bowel sounds General: Yes no CVA tenderness Back/Spine/Pelvis Back: no CVA tenderness Cervical Spine: cervical ROM normal and No Cervical spine tenderness Thoracic/Lumbar Spine: thoraco-lumbar ROM normal, No pain with thoraco-lumbar ROM, No thoracic spinal tenderness and No lumbar spinal tenderness Skin Lesions: no lesions Rashes: no rashes Trauma: no lacerations or abrasions Wounds: no wounds Nails: normal Neuro General: patient oriented x3 Cranial nerves: Yes Equal, round and reactive pupils present Cognition (Neuro): normal cognition Gait exam (Neuro): Normal gait present Motor exam (neuro): 5/5 motor strength present throughout Sensory Exam: No Sensory deficit (Neuro) Deep tendon reflexes (DTR's): Right patellar reflex intensity grade: 2+ and Left patellar reflex intensity grade: 2+ Extrem General: Yes normal to inspection and No edema Psych Appearance: grossly normal Affect: normal affect Attitude: cooperative Thought process: Normal thought process present Assessment and Plan Assessment & Plan (1) Dementia: Comment: Advanced. Code(s): F03.90 - Unspecified dementia, unspecified severity, without behavioral disturbance, psychotic disturbance, mood disturbance, and anxiety Plan: 77-year-old?woman?with?advanced?dementia?presents?for?an?extended?exam Taking?donepezil?and?Seroquel. Stable.??Mood?appears?good (2) Elevated liver enzymes: Code(s): R74.8 - Abnormal levels of other serum enzymes Plan: We?can?follow?periodically (3) Osteoporosis: Code(s): M81.0 - Age-related osteoporosis without current pathological fracture Plan: Followed?by?rheumatology. (4) UTI (urinary tract infection): Code(s): N39.0 - Urinary tract infection, site not specified Plan: Recent?urinary?tract?infection?with?culture?sensitive?to?nitrofurantoin. Symptoms?already?appear?to?be?improving?and?she?has?about?2?days?left?of?treatment. Finish?all?antibiotic (5) Breast cancer screening by mammogram: Code(s): Z12.31 - Encounter for screening mammogram for malignant neoplasm of breast Plan: Patient's?daughter?has?decided?to?discontinue?mammograms. (6) Screening for colon cancer: Code(s): Z12.11 - Encounter for screening for malignant neoplasm of colon Plan: Had?positive?Cologuard?but?she?was?unable?to?tolerate?prep?for?colonoscopy. She?will?let?me?know?if?patient?is?having?symptoms?such?as?abdominal?pain,?bloating?or?GI?bleeding. Otherwise?will?hold?off?on?colonoscopy (7) Adult general medical exam: Code(s): Z00.00 - Encounter for general adult medical examination without abnormal findings Plan: Stable Coding Level of Care Code Est Pt Level 4 (87059) Diagnoses Dementia F03.90 Elevated liver enzymes R74.8 Osteoporosis M81.0 UTI (urinary tract infection) N39.0 Breast cancer screening by mammogram Z12.31 Screening for colon cancer Z12.11 Adult general medical exam Z00.00
[2023-03-05 16:05] VITALS: BP 110/70; PULSE 64; O2SAT 98; BMI 23.5
== END 2023-03-05 16:38 | disposition home or self-care (01) ==
PROVIDERS: PCP Family Medicine; Visit Provider Family Medicine
DX: Z00.00 Encounter for general adult medical examination without abnormal findings (principal); F03.90 Unspecified dementia, unspecified severity, without behavioral disturbance, psychotic disturbance, mood disturbance, and anxiety; R74.8 Abnormal levels of other serum enzymes; M81.0 Age-related osteoporosis without current pathological fracture; N39.0 Urinary tract infection, site not specified
CPT/HCPCS: 99397

== ENCOUNTER 2023-04-16 15:45 | Outpatient (AMB) | payer MEDICARE, MEDICAID, SELFPAY ==
--- NOTE | 2023-04-16 15:50 | A.OFFVIS_ITS ---
Intake Vital Signs 04/16/23 15:51 Height 5 ft Weight 117 lb 4.575 oz BMI 22.9 BP 110/80 Blood Pressure Location Rt brachial Position Sitting Pulse 85 Pulse Source Pulse Oximeter Temp 97 F Temp Source Skin Pulse Oximetry (%) 96 Oxygen Delivery Method Room Air Intake Visit Reasons: RA Intake Note: Pt last seen by Aidee on 07/19/22, presents today for follow up. Continues on [employer] Required: No Accompanied by: Daughter Allergies aspirin [From Paige Aspirin] Allergy (Unknown, Verified 04/16/23 15:52) nose bleeds Medication List - Last Reconciled 04/16/23 by Maikol Brown MD cetirizine (All Day Allergy (cetirizine)) 10 mg PO DAILY PRN 90 days diclofenac sodium 1% (Voltaren Arthritis Pain) 2 grams topical QID 30 days donepezil 5 mg PO BEDTIME fluticasone propionate 50 mcg/actuation (Flonase Allergy Relief) 1 spray intranasal Q12H 30 days melatonin 3 mg PO BEDTIME 30 days olopatadine 0.2% (Pataday Once Daily Relief) 1 drp ophthalmic (eye) DAILY PRN 30 days quetiapine (Seroquel) 1 tab at 5pm and 1 tab at bedtime. 30 days HPI HPI Comments History of Present Illness Details This is a 77 year old female with seropositive RA who returns for follow-up. She has history of dementia. Methotrexate was discontinued 2 months ago due to transaminitis and according to patient's daughter patient has not been complaining of any joint pain. Initial history: 77-year-old female with past medical history of dementia presents with her daughter for evaluation of bilateral hand pain. Per daughter patient only started living with her children over the last 2 years. She has had hand pain and deformities for many years. Per daughter patient was never evaluated by a slide attendant and was never on DMARDs. She takes Tylenol as needed for pain in her hands. Does not use NSAIDs as they cause GI upset. Two years ago patient was wondering outside her house and fell and broke her back. [facility] Medical History (Updated 04/16/23 @ 16:24 by Maikol Brown MD) Screening for osteoporosis Cervicalgia Compression fracture of L1 vertebra Weakness of both lower extremities Dementia Sleep apnea Smoker Arthritis of both hands Depression Surgical History Hx of tubal ligation Family History Mother Bone cancer Social History Household Members Other:: lives with daughter- Housing: Apartment Are you a primary direct care staffer to a significant other at home: No Do you presently have visiting nurse or other home services: Yes ([employer] 18/11) Alcohol intake: never Patient Tobacco Use Status: Former Tobacco user Quit Date: 2020 Tobacco use type: Cigarette Cigarette Packs Per Day: 3 Cigarettes Per Day: 60.0 Years Smoked: 40+ e-Cigarette/Vaping Use: Never Used Second Hand Smoke Exposure: No service: No Current occupational status: retired Current occupational exposures/hazards: No Cognitive needs: No Hearing needs: No Vision needs: No Review of Systems Const Details: ROS is obtained from patient's daughter due to patient's history of dementia. According to daughter patient has no complaints today Physical Exam Vital Signs: Last Vital Signs Temp 97 F 04/16/23 15:51 Pulse 85 04/16/23 15:51 BP 110/80 04/16/23 15:51 Pulse Ox 96 04/16/23 15:51 Oxygen Delivery Method Room Air 04/16/23 15:51 BMI result Body Mass Index 22.9 Const General: cooperative and healthy appearing Nutritional Appearance: average body habitus Orientation/consciousness: oriented to person HEENT Head: Yes normocephalic and Yes atraumatic Resp Effort & Inspection: normal respiratory effort and able to speak in complete sentences Skin General skin exam: no rashes or lesions noted Neuro General: oriented to person Extrem Other: Extensive RA deformities of both hands Right wrist with piano conway sign. MCP enlargement with ulnar deviation of her fingers. No tender MCPs or PIP is in the right hand. Negative MCP squeeze test right hand Left wrist without swelling or tenderness. [place] neck deformities of the left hand fingers Nontender MCPs and PIPs left hand Negative MCP squeeze test left hand Normal range of motion of both shoulders and elbows without pain Mild left knee warmth foot no pain with full flexion and extension Normal range of motion of right knee without pain No ankle swelling or tenderness Crowded toes bilaterally Negative MTP squeeze test No MTP tenderness Normal gait Results Reviewed Results Reviewed: Date of Service: 12/13/22 Follow Up: Procedure(s): XR DEXA axial skeleton Accession Number(s): [id number] cc: Maikol Brown MD~ EXAMINATION: BONE DENSITOMETRY CLINICAL INDICATION: Osteoporosis. COMPARISON: This is the patient's baseline examination. TECHNIQUE: Using a [employer] DXA System (software version: 13.1) manufactured by [employer], dual-energy x-ray absorptiometry was performed of the lumbar spine and left hip. The images are of good technical quality. Summary results are attached. FINDINGS: LEFT FEMUR, NECK: BMD 0.567 g/cm2, Z-score -1.1, T-score -3.4, osteoporosis. LEFT FEMUR, TOTAL: BMD 0.618 g/cm2, Z-score -0.9, T-score -3.1, osteoporosis. AP SPINE L1-L4: BMD 0.455 g/cm2, Z-score -3.8, T-score -6.0, osteoporosis. IDENTIFIED RISK FACTORS: Menopause, dementia, history of fracture (adult), rheumatoid arthritis. HISTORY OF FRACTURE: Spine. MEDICATIONS: Calcium. MM/XR DEXA axial skeleton IMPRESSION: 1. DIAGNOSIS: Severe osteoporosis based on the lowest T-score value of -6.0 in the lumbar spine and history of fracture of spine applying World Health Organization criteria. 2. 10-YEAR FRACTURE RISK PREDICTION, FRAX: According to the guidelines, FRAX calculation should only be performed on patients in the osteopenia bone density category. Therefore, FRAX was not performed on this patient. 3. Treatment Recommendations: NOF guidelines recommend consideration for treatment in postmenopausal women and men age 50 and older presenting with the following: -A hip or vertebral (clinical or morphometric) fracture. -T-score less than or equal to -2.5 at the femoral neck or spine after appropriate evaluation to exclude secondary causes. -Low bone mass at the hip or spine and a 10-year fracture probability by FRAX of greater than or equal to 3% for hip fracture or greater than or equal to 20% for major osteoporotic fracture based on the [place] adapted WHO algorithm. 4. Other Recommendations: All treatment decisions require clinical judgment and consideration of individual patient factors, including patient preferences, comorbidities, previous drug use, risk factors not captured in the FRAX model (e.g. frailty, falls, vitamin D deficiency, increased bone turnover, interval significant decline in bone density) and possible under or overestimation of fracture risk by FRAX. Additional medical evaluation for secondary cause of low bone mineral density may be appropriate. FUTURE SCAN RECOMMENDATION: People with diagnosed cases of osteoporosis or at high risk for fracture should have regular bone mineral density tests. For patients eligible for Medicare, routine testing is allowed once every 2 years. The testing frequency can be increased to one year for patients who have rapidly progressing disease, those who are receiving or discontinuing medical therapy to restore bone mass, or have additional risk factors. Dictated By: Heladio Bradshaw MD Signed By: <Electronically signed by Heladio Bradshaw MD in [place]> 12/25/22 Assessment & Plan Assessment & Plan (1) Rheumatoid arthritis: Comment: +RF +CCP pending erosive dx 07/18 but started many years ago MTX 07/18 effective DC 01/2023 due to transaminitis Code(s): M06.9 - Rheumatoid arthritis, unspecified Qualifiers: Rheumatoid arthritis location: multiple sites Rheumatoid factor presence: with rheumatoid factor Qualified Code(s): M05.79 - Rheumatoid arthritis with rheumatoid factor of multiple sites without organ or systems involvement Plan: This is a 77-year-old female seropositive RA and dementia presents with her daughter for follow-up. Patient has had untreated seropositive erosive RA for many years without treatment. Methotrexate was started and discontinued due to transaminitis. Upon evaluation today I do not see any active synovitis. Patient's RA is likely burnt out at this stage. Will watch patient off DMARDs at this point. Will restart DMARDs if needed. (2) Osteoporosis with fracture: Comment: DEXA 11/2022 LEFT FEMUR, NECK: T-score -3.4 LEFT FEMUR, TOTAL: T-score -3.1 AP SPINE L1-L4: T-score -6.0 Code(s): M80.80XA - Other osteoporosis with current pathological fracture, unspecified site, initial encounter for fracture Qualifiers: Osteoporosis type: age-related Site of pathological fracture: vertebra Encounter type: initial encounter Qualified Code(s): M80.08XA - Age-related osteoporosis with current pathological fracture, vertebra(e), initial encounter for fracture Plan: Chest x-ray showed an L1 compression fracture in 2020. Patient has severe osteoporosis. Secondary cause of osteoporosis such as hyperparathyroidism and hyperthyroidism have been ruled out. Patient has severe osteoporosis complicated by fracture and needs anti resorpti ve therapy. I do not believe that alendronate would be adequate given the severity of her osteoporosis. Given patient's history of dementia there is a risk that patient would pulled out her IV line if Reclast is pursued. I believe Prolia would be a reasonable option. Start prior authorization for Prolia 60 mg subcu injection every 6 months Plan I spent 27 minutes reviewing patient's chart, evaluating patient, ordering diagnostic workup, counseling patient & her daughter and documenting in the chart Coding Level of Care Code Est Pt Level 4 (72004) Diagnoses Rheumatoid arthritis involving multiple sites with positive rheumatoid factor M05.79 Rheumatoid arthritis location: multiple sites Rheumatoid factor presence: with rheumatoid factor Pathological fracture of vertebra due to age-related osteoporosis, initial encounter M80.08XA Osteoporosis type: age-related Site of pathological fracture: vertebra Encounter type: initial encounter
[2023-04-16 15:51] VITALS: BP 110/80; PULSE 85; TEMP 36.1; O2SAT 96; BMI 22.9
== END 2023-04-16 16:15 | disposition home or self-care (01) ==
PROVIDERS: PCP Family Medicine; Visit Provider Student in an Organized Health Care Education/Training Program
DX: M05.79 Rheumatoid arthritis with rheumatoid factor of multiple sites without organ or systems involvement (principal); M80.08XA Age-related osteoporosis with current pathological fracture, vertebra(e), initial encounter for fracture
CPT/HCPCS: 99214

== ENCOUNTER → 2023-04-16 15:45 | Outpatient (BNVA) | payer MEDICARE, MEDICAID, SELFPAY | PROVIDERS: PCP Family Medicine; Visit Provider Student in an Organized Health Care Education/Training Program | DX: M05.79 Rheumatoid arthritis with rheumatoid factor of multiple sites without organ or systems involvement (principal); M80.08XA Age-related osteoporosis with current pathological fracture, vertebra(e), initial encounter for fracture | CPT/HCPCS: 99212 ==

== ENCOUNTER 2023-04-22 13:01 | Outpatient (AMB) | payer MEDICARE, MEDICAID, SELFPAY ==
--- NOTE | 2023-04-22 13:12 | A.OFFPC_ITS ---
Vital Signs 04/22/23 13:13 Height 5 ft Weight 116 lb 4 oz BMI 22.7 BP 134/76 Blood Pressure Location Rt brachial Position Sitting Respiration 13 Pulse 88 Pulse Source Pulse Oximeter Temp 97.8 F Temp Source Temporal Artery Scan Pulse Oximetry (%) 98 Oxygen Delivery Method Room Air Intake Visit Reasons: ? UTI Chemist Biological Required: No Accompanied by: Daughter Allergies aspirin [From Paige Aspirin] Allergy (Unknown, Verified 04/22/23 13:18) nose bleeds Medication List - Last Reconciled 04/22/23 by Maikol Conner CNP cetirizine (All Day Allergy (cetirizine)) 10 mg PO DAILY PRN 90 days diclofenac sodium 1% (Voltaren Arthritis Pain) 2 grams topical QID 30 days donepezil 5 mg PO BEDTIME fluticasone propionate 50 mcg/actuation (Flonase Allergy Relief) 1 spray intranasal Q12H 30 days melatonin 3 mg PO BEDTIME 30 days olopatadine 0.2% (Pataday Once Daily Relief) 1 drp ophthalmic (eye) DAILY PRN 30 days quetiapine (Seroquel) 1 tab at 5pm and 1 tab at bedtime. 30 days Tobacco use date assessed: 03/05/23 Last assessed Fall Risk: 04/22/23 Dental Screening Dental Screen Date: 04/22/23 Did you have a dental visit in the last 12 months?: Yes Did you have a dental problem in the last 6 months where you did not have access to dental care?: No Was dental information given to patient?: Patient has dentist HPI HPI Comments History of Present Illness Details 77-year-old Sami speaking female, acc ompanied by her daughter, presents with complaints of symptoms. She has h/o dementia. She lives in an apartment with 24 hours LUMBER STRAIGHTENER services. According to her daughter, the patient has had frequent and occasional pain with urination for the past 3 days. She has not been drinking adequate amount of water. She took Azo three times daily yesterday and today. No fever, chills, body aches, or fatigue. No bloody urine. [facility] Medical History (Updated 04/16/23 @ 16:24 by Maikol Brown MD) Screening for osteoporosis Cervicalgia Compression fracture of L1 vertebra Weakness of both lower extremities Dementia Sleep apnea Smoker Arthritis of both hands Depression Surgical History Hx of tubal ligation Family History Mother Bone cancer Social History Household Members Other:: lives with daughter- Housing: Apartment Are you a primary healthcare market consultant to a significant other at home: No Do you presently have visiting nurse or other home services: Yes (LUMBER STRAIGHTENER 18/11) Alcohol intake: never Patient Tobacco Use Status: Former Tobacco user Quit Date: 2020 Tobacco use type: Cigarette Cigarette Packs Per Day: 3 Cigarettes Per Day: 60.0 Years Smoked: 40+ e-Cigarette/Vaping Use: Never Used Second Hand Smoke Exposure: No service: No Current occupational status: retired Current occupational exposures/hazards: No Cognitive needs: No Hearing needs: No Vision needs: No Questionnaire Thrive Questionnaire Date Thrive assessed: 12/19/20 JONATHAN-7 AMB Questionnaire JONATHAN-7 Date JONATHAN - 7 assessed: 12/19/20 Source: Developed by Drs. Ricky Quintana, Jessica Norman, Michel Sanchez and colleagues, with an educational amita from [employer]. Review of Systems Const Details: Const Denies chills, Denies fatigue, Denies fever(s), Denies headache(s) and Denies weakness ENT Denies dizziness and Denies headache(s) Card Denies chest pain, Denies lightheadedness, Denies dyspnea and Denies other (Palpitations) Resp Denies cough, Denies dyspnea, Denies wheezing and Denies other ( shortness of breath) GI Denies abdominal pain, Denies melena, Denies hematochezia, Denies change in bowel habits, Denies dyspepsia and Denies nausea Reports as per HPI Musc Denies abnormal gait, Denies myalgias, Denies arthralgias, Denies numbness and Denies tingling Skin/Breast Denies rash, Denies unusual bruising and Denies wounds Neuro Denies abnormal gait, Denies dizziness, Denies headache(s), Denies memory loss, Denies numbness, Denies Sensory deficit (Neuro), Denies tingling and Denies weakness Psych Denies anxiety, Denies depression, Denies memory loss Endo Denies cold intolerance, Denies fatigue, Denies heat intolerance, Denies polydipsia and Denies polyuria Aller/Immun Denies wheezing Physical exam (Primary Care) Vital Signs: Last Vital Signs Temp 97.8 F 04/22/23 13:13 Pulse 88 04/22/23 13:13 Resp 13 04/22/23 13:13 BP 134/76 04/22/23 13:13 Pulse Ox 98 04/22/23 13:13 Oxygen Delivery Method Room Air 04/22/23 13:13 BMI result Body Mass Index 22.7 Tobacco/Smoking Status: Tobacco use Status Tobacco use date assessed 03/05/23 04/22/23 13:13 Patient Tobacco Use Status Former Tobacco user 04/22/23 13:13 Tobacco use type Cigarette 04/22/23 13:13 e-Cigarette/Vaping Use Never Used 04/22/23 13:13 Thrive Assessment: Date of Thrive Assessment Date Thrive assessed 12/19/20 04/22/23 13:13 Const Other: General: no acute distress and well developed Nutritional Appearance: well nourished Orientation/consciousness: patient oriented x3 HENMT Head: Yes normocephalic and Yes atraumatic Eyes General: appearance normal, both eyes and all related structures Pupils: Equal, round and reactive pupils present EOM: EOMs intact bilaterally Resp Effort & Inspection: normal respiratory effort Auscultation: clear to auscultation bilaterally Cardio Rate: regular rate Rhythm: regular rhythm Heart sounds: S1 normal heart sound present, S2 normal heart sound present, no gallops, no murmurs and no rubs GI Palpation (GI): No Abdominal aortic bruit present, Soft to palpation, nontender, No hepatosplenomegaly present and No Rebound tenderness present Auscultation: normal bowel sounds General: Yes no CVA tenderness Back/Spine/Pelvis Back: no CVA tenderness Cervical Spine: cervical ROM normal and No Cervical spine tenderness Thoracic/Lumbar Spine: thoraco-lumbar ROM normal, No pain with thoraco-lumbar ROM, No thoracic spinal tenderness and No lumbar spinal tenderness Extrem General: Yes normal to inspection, No edema and No calf tenderness Skin General: warm and dry. Normal skin color. Normal skin turgor Neuro General: patient oriented x3, gait normal and no focal neuro deficit Cranial nerves: Yes Equal, round and reactive pupils present Cognition (Neuro): normal cognition Gait exam (Neuro): Normal gait present Sensory Exam: No Sensory deficit (Neuro) Psych Appearance: grossly normal Affect: normal affect Attitude: cooperative Thought process: Normal thought process present Results AMB Urinalysis Dipstick UR Leukocytes Large Last Edit by Marianna Hancock MA on 04/22/23 13:45 UR Nitrite Negative Last Edit by Marianna Hancock MA on 04/22/23 13:45 UR Urobilinogen Normal Last Edit by Marianna Hancock MA on 04/22/23 13:45 UR Protein Negative Last Edit by Marianna Hancock MA on 04/22/23 13:45 UR Ph 7.0 Last Edit by Marianna Hancock MA on 04/22/23 13:45 UR Blood Trace Last Edit by Marianna Hancock MA on 04/22/23 13:45 UR Specific [place] 1.005 Last Edit by Marianna Hancock MA on 04/22/23 13:4 5 UR Ketone Negative Last Edit by Marianna Hancock MA on 04/22/23 13:45 UR Bilirubin Negative Last Edit by Marianna Hancock MA on 04/22/23 13:45 UR Glucose Negative Last Edit by Marianna Hancock MA on 04/22/23 13:45 Assessment and Plan Assessment & Plan (1) UTI (urinary tract infection): Code(s): N39.0 - Urinary tract infection, site not specified Plan: Urinalysis revealed positive leukocytes and red blood cells, negative nitrites Nitrofurantoin as prescribed Adequate hydration encouraged Urinalysis/culture ordered. Will review results and make changes as needed Follow-up with worsening or new symptoms Verbalized understanding and agreed with treatment plan Interpretation by the patient's daughter per patient's preference Orders: Orders AMB Urinalysis Dipstick Today N39.0 - Urinary tract infection, site not specified UA CC w/rflx Micro + Cult Today N39.0 - Urinary tract infection, site not specified Medications: New nitrofurantoin monohyd/m-cryst 100 mg (Macrobid) must administer with a meal/food 100 mg PO Q12H 5 days 10 caps 0RF Coding Level of Care Code Est Pt Level 3 (59243) Diagnoses UTI (urinary tract infection) N39.0
[2023-04-22 13:13] VITALS: BP 134/76; PULSE 88; RESP 13; TEMP 36.6; O2SAT 98; BMI 22.7
== END 2023-04-22 13:37 | disposition home or self-care (01) ==
PROVIDERS: PCP Family Medicine; Visit Provider Nurse Practitioner Family
DX: N39.0 Urinary tract infection, site not specified (principal)
CPT/HCPCS: 99213

== ENCOUNTER 2023-04-22 13:22 | Outpatient (REF) | payer MEDICARE, MEDICAID, SELFPAY ==
[2023-04-23 12:19] LABS: Appearance Urine Clear; Color Urine Dark Yellow; Glucose Urine UA Negative (Negative); Leukocyte Esterase Urine Large (3+) (Negative); Nitrite Urine Positive (Negative); PH 7.5 (5.0-9.0); Specific Gravity - Urine <= 1.005 (1.005-1.025); UMIC TRIGGER UACC YES; Urine Blood Trace (Negative); Urine Ketones Negative (Negative); Urine Protein Negative (Neg-Trace)
[2023-04-23 12:22] LABS: Bacteria Urine 2+ (None Seen); RBC Urine 0-2 /HPF (0-2); Squamous Epithelial Cell Urine 0-2 /HPF (0-2); UACC Culture Trigger YES
== END 2023-04-22 13:23 | disposition home or self-care (01) ==
LOC: HO.LAB 13:22
PROVIDERS: Visit Provider Nurse Practitioner Family
DX: N39.0 Urinary tract infection, site not specified (principal)
CPT/HCPCS: 81001; 81003; 87086; 87088; 87186

== ENCOUNTER 2023-06-17 09:28 | Outpatient (AMB) | payer MEDICARE, MEDICAID, SELFPAY ==
--- NOTE | 2023-06-17 09:36 | A.OFFVIS_ITS ---
Intake Vital Signs 06/17/23 09:46 Height 5 ft Weight 111 lb 8 oz BMI 21.8 BP 124/80 Blood Pressure Location Lt brachial Position Sitting Pulse 64 Pulse Source Pulse Oximeter Pulse Oximetry (%) 95 Oxygen Delivery Method Room Air Intake Visit Reasons: 4m follow up-CONF Intake Note: Patient presents for 4 month f/u. Patient had a UTI and has Dementia and is forgetting to play dominoes. Daughter is concerned and wants to know if it is the UTI or is it the dementia causing her confusion? Allergies aspirin [From Paige Aspirin] Allergy (Unknown, Verified 06/17/23 09:45) nose bleeds HPI HPI Comments History of Present Illness Details 78 y/o female patient presents with her daughter for follow up of dementia. Pt's daughter reports that patient had multiple UTIs over the last couple of months. She was more confused when she played dominos. She is on donepezil 5 mg now, tried 10 mg but she was very confused and had combative behavior. Pt's combative behavior has resolved after decreased donepezil to 5 mg. She still can have some confusion. She uses seroquel 25 mg qHS. Pt rarely use extra seroquel. Pt's daughter reports that patient sleeps better with melatonin. 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 She does also some cognitive and physical activities during daytime. [facility] Medical History Screening for osteoporosis Cervicalgia Compression fracture of L1 vertebra Weakness of both lower extremities Dementia Sleep apnea Smoker Arthritis of both hands Depression Surgical History Hx of tubal ligation Family History Mother Bone cancer Social History Household Members Other:: lives with daughter- Housing: Apartment Are you a primary care program resident to a significant other at home: No Do you presently have visiting nurse or other home services: Yes (AVIATION SAFETY EQUIPMENT TECHNICIAN 24/7) Alcohol intake: never Patient Tobacco Use Status: Former Tobacco user Quit Date: 2020 Tobacco use type: Cigarette Cigarette Packs Per Day: 3 Cigarettes Per Day: 60.0 Years Smoked: 40+ e-Cigarette/Vaping Use: Never Used Second Hand Smoke Exposure: No service: No Current occupational status: retired Current occupational exposures/hazards: No Cognitive needs: No Hearing needs: No Vision needs: No Review of Systems Const All systems reviewed & are unremarkable except as noted in HPI and below ENT Reports Normal hearing present Neuro Reports Normal hearing present Physical Exam Vital Signs: Last Vital Signs Pulse 64 06/17/23 09:46 BP 124/80 06/17/23 09:46 Pulse Ox 95 06/17/23 09:46 Oxygen Delivery Method Room Air 06/17/23 09:46 BMI result Body Mass Index 21.8 Const General: cooperative and comfortable Nutritional Appearance: average body habitus Orientation/consciousness: oriented to person and oriented to place Limitations: language barrier Neck Neck: Yes full ROM and Yes supple Resp Effort & Inspection: normal respiratory effort and able to speak in complete sentences Neuro General: oriented to person, oriented to place and moves all extremities Cranial nerves: Yes Normal hearing present and Yes Ability to bilaterally elevate shoulders present Motor exam (neuro): Other motor observations present (oromandibular dystonia) Psych Appearance: grossly normal Mental Status: mental status grossly normal Assessment & Plan Assessment & Plan (1) Dementia: Comment: Advanced. Code(s): F03.90 - Unspecified dementia, unspecified severity, without behavioral disturbance, psychotic disturbance, mood disturbance, and anxiety (2) Insomnia: Code(s): G47.00 - Insomnia, unspecified Plan Advised patient to continue to take donepezil to 5 mg qHS, and try memantine ER 7 mg daily. Monitor side effects including GI upset or diarrhea. Continue to take seroquel 25 mg qHS and may use extra seroquel 25 mg as needed. Advised patient to continue to take melatonin 3 mg qHS to help her staying sleep. UTI prevention stratetgy reviewed. Medications: New memantine 7 mg PO DAILY 30 ea 0RF 30 days Coding Level of Care Code Est Pt Level 4 (75368) Diagnoses Dementia F03.90 Insomnia G47.00
[2023-06-17 09:46] VITALS: BP 124/80; PULSE 64; O2SAT 95; BMI 21.8
== END 2023-06-17 10:13 | disposition home or self-care (01) ==
PROVIDERS: PCP Family Medicine; Visit Provider Nurse Practitioner Family
DX: F03.90 Unspecified dementia, unspecified severity, without behavioral disturbance, psychotic disturbance, mood disturbance, and anxiety (principal); G47.00 Insomnia, unspecified
CPT/HCPCS: 99214

== ENCOUNTER → 2023-06-17 09:28 | Outpatient (BNVA) | payer MEDICARE, MEDICAID, SELFPAY | PROVIDERS: PCP Family Medicine; Visit Provider Nurse Practitioner Family | DX: F03.90 Unspecified dementia, unspecified severity, without behavioral disturbance, psychotic disturbance, mood disturbance, and anxiety (principal); G47.00 Insomnia, unspecified | CPT/HCPCS: 99212 ==

== ENCOUNTER 2023-06-18 15:34 | Outpatient (AMB) | payer MEDICARE, MEDICAID, SELFPAY ==
--- NOTE | 2023-06-18 15:55 | A.OFFPC_ITS ---
Vital Signs 06/18/23 15:56 Height 5 ft Weight 115 lb 2 oz BMI 22.5 BP 112/68 Blood Pressure Location Lt brachial Position Sitting Respiration 13 Pulse 95 Pulse Source Pulse Oximeter Pulse Oximetry (%) 96 Oxygen Delivery Method Room Air Intake Visit Reasons: f/u chronic conditions Intake Note: Patient is accompanied by her daughter and CUSTOMER ASSOCIATE today. Patient's daughter is requesting a standing urine analysis order for when patient is having UTI symptoms. Patient's daughter reports patient has had 3 UTI's in 3 months. [employer] Specialists Required: No Accompanied by: Daughter Allergies aspirin [From Paige Aspirin] Allergy (Unknown, Verified 06/18/23 16:00) nose bleeds Tobacco use date assessed: 06/18/23 HPI f/u chronic conditions HPI Details 78 y/o female presents to f/u chronic co nditions. They report frequent UTIs. They report she had seen neurology yesterday. They report her mood feels stable though she has her off days. [facility] Medical History Screening for osteoporosis Cervicalgia Compression fracture of L1 vertebra Weakness of both lower extremities Dementia Sleep apnea Smoker Arthritis of both hands Depression Surgical History Hx of tubal ligation Family History Mother Bone cancer Social History Household Members Other:: lives with daughter- Housing: Apartment Are you a primary customer care assistant to a significant other at home: No Do you presently have visiting nurse or other home services: Yes (CUSTOMER ASSOCIATE 18/11) Alcohol intake: never Patient Tobacco Use Status: Former Tobacco user Quit Date: 2020 Tobacco use type: Cigarette Cigarette Packs Per Day: 3 Cigarettes Per Day: 60.0 Years Smoked: 40+ e-Cigarette/Vaping Use: Never Used Second Hand Smoke Exposure: No service: No Current occupational status: retired Current occupational exposures/hazards: No Cognitive needs: No Hearing needs: No Vision needs: No Questionnaire Thrive Questionnaire Date Thrive assessed: 12/19/20 JONATHAN-7 AMB Questionnaire JONATHAN-7 Date JONATHAN - 7 assessed: 12/19/20 Source: Developed by Drs. Ricky Quintana, Jessica Norman, Michel Sanchez and colleagues, with an educational amita from [employer]. Physical exam (Primary Care) Vital Signs: Last Vital Signs Pulse 95 06/18/23 15:56 Resp 13 06/18/23 15:56 BP 112/68 06/18/23 15:56 Pulse Ox 96 06/18/23 15:56 Oxygen Delivery Method Room Air 06/18/23 15:56 BMI result Body Mass Index 22.5 Tobacco/Smoking Status: Tobacco use Status Tobacco use date assessed 06/18/23 06/18/23 16:00 Patient Tobacco Use Status Former Tobacco user 06/18/23 15:58 Tobacco use type Cigarette 06/18/23 15:58 e-Cigarette/Vaping Use Never Used 06/18/23 15:58 Thrive Assessment: Date of Thrive Assessment Date Thrive assessed 12/19/20 06/18/23 15:58 Assessment and Plan Assessment & Plan (1) Frequent UTI: Code(s): N39.0 - Urinary tract infection, site not specified Plan: Patient?with?dementia?and?frequent?UTI Referred?to?Urology Check?urine?studies (2) Dementia: Comment: Advanced. Code(s): F03.90 - Unspecified dementia, unspecified severity, without behavioral di sturbance, psychotic disturbance, mood disturbance, and anxiety Plan: Followed?by?Neurology?and?she?is?on?memantine?and?donepezil. Also?taking?Seroquel?for?mood Continue?to?follow-up?with?Neurology?as?recommended Continue?social?engagement?and?mental?exercise Also?encouraged?physical?exercise Orders: Orders UA and rflx microscopic Today Z00.00 - Encounter for general adult medical examination without abnormal findings Urine Culture Today N39.0 - Urinary tract infection, site not specified Referrals Urology Referral N39.0 - Urinary tract infection, site not specified Coding Level of Care Code Est Pt Level 3 (22623) Diagnoses Frequent UTI N39.0 Dementia F03.90
[2023-06-18 15:56] VITALS: BP 112/68; PULSE 95; RESP 13; O2SAT 96; BMI 22.5
== END 2023-06-18 16:54 | disposition home or self-care (01) ==
PROVIDERS: PCP Family Medicine; Visit Provider Family Medicine
DX: N39.0 Urinary tract infection, site not specified (principal); F03.90 Unspecified dementia, unspecified severity, without behavioral disturbance, psychotic disturbance, mood disturbance, and anxiety
CPT/HCPCS: 99213

== ENCOUNTER 2023-06-18 16:51 | Outpatient (REF) | payer MEDICARE, MEDICAID, SELFPAY | END 2023-06-18 16:52 | disposition home or self-care (01) | LOC: HO.LAB 16:51 | PROVIDERS: Visit Provider Family Medicine | DX: N39.0 Urinary tract infection, site not specified (principal) | CPT/HCPCS: 87086 ==

== ENCOUNTER 2023-07-03 13:22 | Outpatient (AMB) | payer MEDICARE, MEDICAID, SELFPAY ==
[2023-07-03 13:23] VITALS: BP 116/64; PULSE 74; O2SAT 98; BMI 22.2
--- NOTE | 2023-07-03 13:23 | A.OFFPC_ITS ---
Vital Signs 07/03/23 13:23 Height 5 ft Weight 113 lb 8 oz BMI 22.2 BP 116/64 Blood Pressure Location Lt brachial Position Sitting Pulse 74 Pulse Source Pulse Oximeter Pulse Oximetry (%) 98 Oxygen Delivery Method Room Air Intake Visit Reasons: bloody mole Intake Note: Patient is here with complaint of a bloody mole, last week, it was bleeding a lot, and this week, bleeding more. Allergies aspirin [From Paige Aspirin] Allergy (Unknown, Verified 07/03/23 13:28) nose bleeds Tobacco use date assessed: 07/03/23 Fall risk assessment: No Falls in past year Last assessed Fall Risk: 07/03/23 Dental Screening Dental Screen Date: 07/03/23 Did you have a dental visit in the last 12 months?: No Did you have a dental problem in the last 6 months where you did not have access to dental care?: No Was dental information given to patient?: Patient declined HPI bloody mole HPI Details 78 y/o female presents today with compla ints of a bloody mole. Pt notes mole is bleeding. PFSH Medical History Screening for osteoporosis Cervicalgia Compression fracture of L1 vertebra Weakness of both lower extremities Dementia Sleep apnea Smoker Arthritis of both hands Depression Surgical History Hx of tubal ligation Family History Mother Bone cancer Social History Household Members Other:: lives with daughter- Housing: Apartment Are you a primary nanny caregiver to a significant other at home: No Do you presently have visiting nurse or other home services: Yes (DISTRICT RECRUITER 18/11) Alcohol intake: never Patient Tobacco Use Status: Former Tobacco user Quit Date: 2020 Tobacco use type: Cigarette Cigarette Packs Per Day: 3 Cigarettes Per Day: 60.0 Years Smoked: 40+ e-Cigarette/Vaping Use: Never Used Second Hand Smoke Exposure: No service: No Current occupational status: retired Current occupational exposures/hazards: No Cognitive needs: No Hearing needs: No Vision needs: No Questionnaire Thrive Questionnaire Date Thrive assessed: 12/19/20 JONATHAN-7 AMB Questionnaire JONATHAN-7 Date JONATHAN - 7 assessed: 12/19/20 Source: Developed by Drs. Ricky Quintana, Jessica Nomran, Michel Sanchez and colleagues, with an educational amita from [employer]. Review of Systems Const Denies chills, Denies fatigue, Denies fever(s), Denies headache(s) and Denies weakness ENT Denies dizziness and Denies headache(s) Card Denies dyspnea Resp Denies cough, Denies dyspnea, Denies wheezing and Denies other (shortness of breath) Musc Denies numbness and Denies tingling Neuro Denies dizziness, Denies headache(s), Denies numbness, Denies tingling and Denies weakness Psych Denies anxiety and Denies depression Endo Denies fatigue Aller/Immun Denies wheezing Physical exam (Primary Care) Vital Signs: Last Vital Signs Pulse 74 07/03/23 13:23 BP 116/64 07/03/23 13:23 Pulse Ox 98 07/03/23 13:23 Oxygen Delivery Method Room Air 07/03/23 13:23 BMI result Body Mass Index 22.2 Tobacco/Smoking Status: Tobacco use Status Tobacco use date assessed 07/03/23 07/03/23 13:32 Patient Tobacco Use Status Former Tobacco user 07/03/23 13:32 Tobacco use type Cigarette 07/03/23 13:32 e-Cigarette/Vaping Use Never Used 07/03/23 13:32 Thrive Assessment: Date of Thrive Assessment Date Thrive assessed 12/19/20 07/03/23 13:32 Skin Other: 3cm neoplasm/mass on her abdomen, melanotic Assessment and Plan Assessment & Plan (1) Neoplasm of uncertain behavior of skin: Code(s): D48.5 - Neoplasm of uncertain behavior of skin Plan: 78-year-old?female?presents?for?evaluation?of larger?regular?melanotic?lesion?on?abdomen?with?bleeding. Concern?for?neoplasm Referred?to?dermatology?for?removal?and?evaluation. Orders: Referrals Dermatology Referral D48.5 - Neoplasm of uncertain behavior of skin Coding Level of Care Code Est Pt Level 3 (92320) Diagnoses Neoplasm of uncertain behavior of skin D48.5
== END 2023-07-03 13:42 | disposition home or self-care (01) ==
PROVIDERS: PCP Family Medicine; Visit Provider Family Medicine
DX: D48.5 Neoplasm of uncertain behavior of skin (principal)
CPT/HCPCS: 99213

== ENCOUNTER 2023-08-18 14:11 | Outpatient (AMB) | payer MEDICARE, MEDICAID, SELFPAY ==
--- NOTE | 2023-08-18 14:12 | A.OFFVIS_ITS ---
Intake Visit Reasons: recurrent UTI Intake Note: New Patient presents for initial visit for frequent uti Urology Medications: none Blood Thinner: none PVR: 14ml's Butadiene Convertor Operator Required: No Accompanied by: Daughter and FIRER LOW PRESSURE Allergies aspirin [From Paige Aspirin] Allergy (Unknown, Verified 08/18/23 20:26) nose bleeds Medication List - Last Reconciled 08/18/23 by SIMON Conley- cetirizine (All Day Allergy (cetirizine)) 10 mg PO DAILY PRN 90 days diclofenac sodium 1% (Voltaren Arthritis Pain) 2 grams topical QID 30 days donepezil 5 mg PO BEDTIME fluticasone propionate 50 mcg/actuation (Flonase Allergy Relief) 1 spray intranasal Q12H 30 days melatonin 3 mg PO BEDTIME 30 days memantine 7 mg PO DAILY 30 days olopatadine 0.2% (Pataday Once Daily Relief) 1 drp ophthalmic (eye) DAILY PRN 30 days quetiapine (Seroquel) 1 tab at 5pm and 1 tab at bedtime. 30 days HPI Comments Details: Connie is a very pleasant 78-year-old Sammarinese-speaking female patient of Dr. Massey who was accompanied by her FIRER LOW PRESSURE and daughter at today's office visit. She has a past medical history of cervicalgia, dementia, sleep apnea, arthritis, smoker, and depression. She presents to the office today as a new patient for recurrent urinary tract infections. In discussion with the patient's daughter who provides much of today's medical history as patient suffers from dementia. She reports noting over the last 6 months patient had been experiencing issues with increased bilateral lower leg weakness leading to recurrent falls as well as recurrent urinary tract infections. In review of patient's chart it appears patient had urinary tract infection 03/20 and again 04/19 E coli noted. She has since completed antibiotic therapy as prescribed. In office urinalysis results reviewed with the patient today negative leukocytes negative nitrates. She currently denies any UTI like symptoms. She denies urinary urgency, urinary fr equency, incontinence, nocturia, hematuria, dysuria, foul smelling urine, changes to urinary stream, flank pain, fever, and or chills. She is happy with her current voiding parameters. Patient's daughter reports feeling UTIs were due to adult pull-ups she had been wearing however patient is now with 24 hour care and they have been performing timed/scheduled voiding in patient has had no incontinent issues not requiring adult pull-ups. She discusses feeling this has been helpful. PVR 14 mL. Discussed at length potential causes for recurrent urinary tract infections. Discussed obtaining retroperitoneal ultrasound for further assessment evaluation. She otherwise offers no other issues or concerns at this time. [facility] Medical History Screening for osteoporosis Cervicalgia Compression fracture of L1 vertebra Weakness of both lower extremities Dementia Sleep apnea Smoker Arthritis of both hands Depression Surgical History Hx of tubal ligation Family History Mother Bone cancer Social History Household Members Other:: lives with daughter- Housing: Apartment Are you a primary career and transition teacher to a significant other at home: No Do you presently have visiting nurse or other home services: Yes (FIRER L[employer] PRESSURE 18/11) Alcohol intake: never Patient Tobacco Use Status: Former Tobacco user Quit Date: 2020 Tobacco use type: Cigarette Cigarette Packs Per Day: 3 Cigarettes Per Day: 60.0 Years Smoked: 40+ e-Cigarette/Vaping Use: Never Used Second Hand Smoke Exposure: No service: No Current occupational status: retired Current occupational exposures/hazards: No Cognitive needs: No Hearing needs: No Vision needs: No Review of Systems Const Reports as per HPI Eyes Reports no additional complaints ENT Reports no additional complaints Card Reports no additional complaints Resp Reports as per HPI GI Reports no additional complaints Reports as per HPI Musc Reports as per HPI Neuro Reports as per HPI Psych Reports no additional complaints Dell/Lymph Reports no additional complaints Aller/Immun Reports no additional complaints Physical Exam Const General: cooperative, healthy appearing, comfortable, no acute distress, well developed, alert and awake Orientation/consciousness: patient oriented x3 HEENT Head: Yes normal to inspection, Yes normocephalic and Yes atraumatic Ears: hearing grossly normal bilaterally Eyes General: appearance normal, both eyes and all related structures Neck Neck: Yes normal visual inspection and Yes trachea midline Chest Chest palpation & inspection: normal inspection of the chest Resp Effort & Inspection: normal respiratory effort and able to speak in complete sentences Cardio Rate: regular rate GI Inspection: Yes normal to inspection General: Yes no CVA tenderness Back/Spine/Pelvis Back: no CVA tenderness Skin General skin exam: no rashes or lesions noted Neuro General: patient oriented x3 Extrem General: Yes normal to inspection Psych Appearance: grossly normal and well kempt Mental Status: mental status grossly normal Speech and movement: Normal speech and movement present and Clear speech present Affect: normal affect Attitude: cooperative Thought process: Normal thought process present Thought content: Normal thought content present Insight: Limited insight present (Psych) Judgement: Limited judgement present (Psych) Office Procedures Post Void Residual Post Residual Void Post Void Residual (PVR): 14 [id number] Void Residual by ultrasound Results AMB Urinalysis, Automated UA Leukoctes 15 He/uL Last Edit by [email or web address] on 08/18/23 14:28 UA Nitrite Negative Last Edit by [email or web address] on 08/18/23 14:28 UA Urobilinogen 0.2 mg/dL Last Edit by [email or web address] on 08/18/23 14:28 UA Protein 0 mg/dL Last Edit by [email or web address] on 08/18/23 14:28 UA pH 7.5 Last Edit by [email or web address] on 08/18/23 14:28 UA Blood 10 Will/uL Last Edit by [email or web address] on 08/18/23 14:28 UA Specific [place] 1.005 Last Edit by [email or web address] on 08/18/23 14:28 UA Ketone Negative Last Edit by [email or web address] on 08/18/23 14:28 UA Bilirubin 0 mg/dL Last Edit by [email or web address] on 08/18/23 14:28 UA Glucose 0 mg/dL Last Edit by [email or web address] on 08/18/23 14:28 Results Reviewed Results Reviewed: Laboratory Last Values Urine pH (Auto) 7.5 08/18/23 14:27 Specific [place] (Auto) 1.005 08/18/23 14:27 Urine Protein (Auto) 0 mg/dL 08/18/23 14:27 Glucose (UA)(Auto) 0 mg/dL 08/18/23 14:27 Urine Ketones (Auto) Negative 08/18/23 14:27 Urine Blood (Auto) 10 Will/uL 08/18/23 14:27 Urine Nitrite (Auto) Negative 08/18/23 14:27 Urine Bilirubin (Auto) 0 mg/dL 08/18/23 14:27 Urine Urobilinogen (Auto) 0.2 mg/dL 08/18/23 14:27 Leukocyte Esterase (Auto) 15 He/uL 08/18/23 14:27 Assessment & Plan Assessment & Plan (1) Frequent UTI: Code(s): N39.0 - Urinary tract infection, site not specified Category: Medical Plan In office urinalysis results reviewed with the patient and her family today; as noted above. PVR 14 mL. Discussed at length potential causes for recurrent urinary tract infections. Will obtain retroperitoneal ultrasound for further assessment evaluation. Discussed, educated, and stressed the importance of continuing to drink water daily. Discussed possible near future in office cystoscopy for further assessment evaluation if symptoms persist and/or worsen. Discussed possible near future initiation of Estrace cream if patient continues with recurrent urinary tract infections. Discussed UTI prevention with D mannose supplement, vitamin-C, increasing fluid intake, behavioral therapy with timed voiding, perineal hygiene and postcoital voiding, and management of constipation with stool softeners and increased fiber intake. Follow-up in 1-3 months with imaging to be completed prior; or sooner with any issues, concerns, and or questions. Orders: Orders AMB Urinalysis Automated Today Z13.9 - Encounter for screening, unspecified AMB Post Void Residual by ultrasound Today N39.0 - Urinary tract infection, site not specified US retroperitoneal comp Today N39.0 - Urinary tract infection, site not specified Patient Instructions: The patient had an opportunity to ask questions regarding the treatment plan. All questions were answered. Physical exam, labs, and imaging were discussed and reviewed in detail. As well as risks, benefits, and discussion of treatment choices. No major barriers to understanding were identified. The patient expressed understanding and agreement with the above treatment plan. The patient was made aware they should contact our office by phone for worsening of their current condition, the appearance of new symptoms, or with any questions or concerns. Compliance is encouraged with any medications and follow up testing that is ordered. It is a privilege to be allowed the opportunity to participate in? your urological care.? Again, if you have any questions or concerns If you have any questions or concerns please do not hesitate to contact me. The office is [phone]. This note is constructed using voice recognition software. While every effort has been made to ensure accuracy museum host/hostess errors may have been included. Yours sincerely, DAKOTA Conley
== END 2023-08-18 14:46 | disposition home or self-care (01) ==
LOC: HO.HUSH 14:11
PROVIDERS: PCP Family Medicine; Visit Provider Nurse Practitioner Family
DX: N39.0 Urinary tract infection, site not specified (principal)
CPT/HCPCS: 99203; 99213

== ENCOUNTER → 2023-08-18 14:11 | Outpatient (BNVA) | payer MEDICARE, MEDICAID, SELFPAY | PROVIDERS: PCP Family Medicine; Visit Provider Nurse Practitioner Family | DX: N39.0 Urinary tract infection, site not specified (principal) | CPT/HCPCS: 51798; 81003; 99202 ==

== ENCOUNTER 2023-09-04 16:23 | Outpatient (REF) | payer MEDICARE, MEDICAID, SELFPAY ==
--- NOTE | ~2023-09-04 | US_ITS ---
EXAMINATION: US RETROPERITONEAL COMPLETE (RENAL) CLINICAL INFORMATION: Urinary tract infection, site not specified. COMPARISON: None available. TECHNIQUE: Real-time imaging of the kidneys and bladder. FINDINGS: RIGHT KIDNEY: 10.6 x 3.2 x 4.6 cm (SAG x AP x TRV). The kidney is normal in size, contour, and echogenicity. Renal cortical thickness is normal. No calculi or focal parenchymal lesions. No hydronephrosis. LEFT KIDNEY: 9.3 x 3.9 x 4.3 cm (SAG x AP x TRV). The kidney is normal in size, contour, and echogenicity. Renal cortical thickness is normal. No calculi or focal parenchymal lesions. No hydronephrosis. BLADDER: Partially distended. Left ureteral jet is demonstrated; right is not. Prevoid bladder volume is 117 mL. Postvoid bladder volume was not obtained. US/US retroperitoneal comp IMPRESSION: Unremarkable examination.
== END 2023-09-04 16:24 | disposition home or self-care (01) ==
LOC: HO.US 16:23
PROVIDERS: PCP Family Medicine; Visit Provider Nurse Practitioner Family
DX: N39.0 Urinary tract infection, site not specified (principal)
CPT/HCPCS: 76770

== ENCOUNTER 2023-09-17 10:09 | Outpatient (AMB) | payer MEDICARE, MEDICAID, SELFPAY ==
--- NOTE | 2023-09-17 10:15 | A.OFFVIS_ITS ---
Vital Signs 09/17/23 10:16 Height 5 ft Weight 113 lb BMI 22.1 BP 120/70 Blood Pressure Location Rt brachial Position Sitting Pulse 67 Pulse Source Pulse Oximeter Pulse Oximetry (%) 98 Oxygen Delivery Method Room Air Intake Visit Reasons: 4m follow up-CONF Intake Note: Patient presents for 4 month follow up. medication prescribed is working very well. Allergies aspirin [From Paige Aspirin] Allergy (Unknown, Verified 09/17/23 10:19) nose bleeds Medication List - Last Reconciled 09/17/23 by SIMON Arroyo cetirizine (All Day Allergy (cetirizine)) 10 mg PO DAILY PRN 90 days diclofenac sodium 1% (Voltaren Arthritis Pain) 2 grams topical QID 30 days donepezil 5 mg PO BEDTIME fluticasone propionate 50 mcg/actuation (Flonase Allergy Relief) 1 spray intranasal Q12H 30 days melatonin 3 mg PO BEDTIME 30 days memantine 7 mg PO DAILY 30 days olopatadine 0.2% (Pataday Once Daily Relief) 1 drp ophthalmic (eye) DAILY PRN 30 days quetiapine (Seroquel) 1 tab at 5pm and 1 tab at bedtime. 30 days HPI Comments Details: 78-yr-old female presents for f/u visit. Pt accompanied by her dtr, Jelly. And SALES OFFICE COORDINATOR. Pt was previously seen By Eugenia Lazo NP. Pt denies any significant interval medical changes. Pt has tolerated addition of Namenda 7mg ER well- dtr feels that this is helpful. Compliant w/ Donepazil 5mg. In the past, pt was more combative when Donepaxil was increased from 5mg to 10mg qd. She is still forgetful, but sometimes memory is a bit better. She has 24/7 support. She is not eating much- this is typical for her. Pt denies any pain. She uses Quetipaine- dtr states she thinks it is 25mg qhs- helps with sleep. No recent behaviors. May occasionally be spicy but caregivers are easily able to redirect her. She is not doing anything dangerous- does not use stove or leave water running- family and caregivers keep a close eye on her. She sometimes uses stationary bike- but caregivers do not force her to use it. She does like to play dominos. [facility] Medical History Screening for osteoporosis Cervicalgia Compression fracture of L1 vertebra Weakness of both lower extremities Dementia Sleep apnea Smoker Arthritis of both hands Depression Surgical History Hx of tubal ligation Family History Mother Bone cancer Social History Household Members Other:: lives with daughter- Housing: Apartment Are you a primary weekend caregiver to a significant other at home: No Do you presently have visiting nurse or other home services: Yes (SALES OFFICE COORDINATOR 18/11) Alcohol intake: never Patient Tobacco Use Status: Former Tobacco user Quit Date: 2020 Tobacco use type: Cigarette Cigarette Packs Per Day: 3 Cigarettes Per Day: 60.0 Years Smoked: 40+ e-Cigarette/Vaping Use: Never Used Second Hand Smoke Exposure: No service: No Current occupational status: retired Current occupational exposures/hazards: No Cognitive needs: No Hearing needs: No Vision needs: No Review of Systems Const All systems reviewed & are unremarkable except as noted in HPI and below Physical Exam Vital Signs: Last Vital Signs Pulse 67 09/17/23 10:16 BP 120/70 09/17/23 10:16 Pulse Ox 98 09/17/23 10:16 Oxygen Delivery Method Room Air 09/17/23 10:16 BMI result Body Mass Index 22.1 Const General: cooperative and no acute distress HEENT Head: Yes normocephalic Resp Effort & Inspection: normal respiratory effort and able to speak in complete sentences Neuro Other: Pt is alert to person. Able to name her dtr and 3 children. Pt is unable to state current month or year Pt unable to state where we are or why she is here. Pt states she lives in [place], But has lived in [place] for the last 4 yrs- dtr states pt had previously lived in [facility] for yrs. General: gait normal Cognition (Neuro): normal cognition Motor exam (neuro): 5/5 motor strength present throughout Psych Appearance: grossly normal Mental Status: mental status grossly normal Speech and movement: Normal speech and movement present Affect: normal affect Attitude: cooperative Thought process: Normal thought process present Thought content: Normal thought content present Insight: Good insight present (Psych) Judgement: Good judgement present (Psych) Results Reviewed Results Reviewed: at [facility]: CT Head/Brain W/O Contrast, CT Cervical Spine W/O Contrast Hx of Present Illness: unwitnessed fall outside apartment complex. pt poor historian. abrasion to R cheek and chin. c o right lateral chest RUQ pain.; Reason: Other:; Head trauma, mod-severe; Clinical Question(s): Hematoma. COMPARISON: None. FINDINGS: HEAD: BRAIN and EXTRA-AXIAL SPACES: No parenchymal hemorrhage, midline shift or mass effect. Sauceda-white matter differentiation is well preserved. No acute infarct. Mild prominence of the ventricles and sulci consistent with parenchymal volume loss. Mild periventricular and subcortical low-density white matter changes. No subarachnoid hemorrhage, subdural or epidural collections. CALVARIUM, SKULL BASE AND SOFT TISSUES: No fractures or suspicious bony lesions. The paranasal sinuses and mastoid air cells are clear. Visualized orbits and globes are intact. The extracranial soft tissues are unremarkable. CERVICAL SPINE: No fracture. No acute osseous abnormalities. No acute malalignment. Multifocal degenerative disc changes OTHER BONES: Normal. CERVICAL SOFT TISSUES AND LUNG APICES: Unremarkable. Clear lung apices. IMPRESSION: No acute abnormality of the head or cervical spine. Assessment & Plan Assessment & Plan (1) Dementia: Comment: Advanced. Code(s): F03.90 - Unspecified dementia, unspecified severity, without behavioral disturbance, psychotic disturbance, mood disturbance, and anxiety Category: Medical (2) Insomnia: Code(s): G47.00 - Insomnia, unspecified Category: Medical Plan Reviewed last known Head CT from 2021 at [facility]: Mild prominence of the ventricles and sulci consistent with parenchymal volume loss. Mild periventricular and subcortical low-density white matter changes. No subarachnoid hemorrhage, subdural or epidural collections. Will recheck labs for common underlying etiologies of advancing cognitive decline. Increase Memantine ER from 7mg qd to 14mg qd. Continue Donepazil 5mg qd.- pt did not tolerate higher dose. Continue Quetiapine 25mg qhs- note order if for q 5pm and qhs- per PCP. Continue 24/7 supervision. Continue encouraging pt to engage in cognitive and socially stimulating activities- dominos, puzzles, word finding puzzles. Continue encouraging physical activity as tolerated- walking, using her stationary bike. f/u upon review of above and in-clinic in 6 months or sooner prn. Orders: Orders Comprehensive Met. Panel Today E87.1 - Hypo-osmolality and hyponatremia, F03.90 - Unspecified dementia, unspecified severity, without behavioral disturbance, psychotic disturbance, mood disturbance, and anxiety, M80.08XA - Age-related osteoporosis with current pathological fracture, vertebra(e), initial encounter for fracture, R63.0 - Anorexia, R79.89 - Other specified abnormal findings of blood chemistry Homocysteine Today E87.1 - Hypo-osmolality and hyponatremia, F03.90 - Uns pecified dementia, unspecified severity, without behavioral disturbance, psychotic disturbance, mood disturbance, and anxiety, M80.08XA - Age-related osteoporosis with current pathological fracture, vertebra(e), initial encounter for fracture, R63.0 - Anorexia, R79.89 - Other specified abnormal findings of blood chemistry Erythrocyte Sedimentation Rate Today E87.1 - Hypo-osmolality and hyponatremia, F03.90 - Unspecified dementia, unspecified severity, without behavioral disturbance, psychotic disturbance, mood disturbance, and anxiety, M80.08XA - Age-related osteoporosis with current pathological fracture, vertebra(e), initial encounter for fracture, R63.0 - Anorexia, R79.89 - Other specified abnormal findings of blood chemistry Complete Blood Count Auto Diff Today E87.1 - Hypo-osmolality and hyponatremia, F03.90 - Unspecified dementia, unspecified severity, without behavioral disturbance, psychotic disturbance, mood disturbance, and anxiety, M80.08XA - Age-related osteoporosis with current pathological fracture, vertebra(e), initial encounter for fracture, R63.0 - Anorexia, R79.89 - Other specified abnormal findings of blood chemistry Methylmalonic Acid Today E87.1 - Hypo-osmolality and hyponatremia, F03.90 - Unspecified dementia, unspecified severity, without behavioral disturbance, psychotic disturbance, mood disturbance, and anxiety, M80.08XA - Age-related osteoporosis with current pathological fracture, vertebra(e), initial encounter for fracture, R63.0 - Anorexia, R79.89 - Other specified abnormal findings of blood chemistry Vitamin B12 and Folate Today E87.1 - Hypo-osmolality and hyponatremia, F03.90 - Unspecified dementia, unspecified severity, without behavioral disturbance, psychotic disturbance, mood disturbance, and anxiety, M80.08XA - Age-related osteoporosis with current pathological fracture, vertebra(e), initial encounter for fracture, R63.0 - Anorexia, R79.89 - Other specified abnormal findings of blood chemistry Syphilis Screen Today E87.1 - Hypo-osmolality and hyponatremia, F03.90 - Unspecified dementia, unspecified severity, without behavioral disturbance, psychotic disturbance, mood disturbance, and anxiety, M80.08XA - Age-related osteoporosis with current pathological fracture, vertebra(e), initial encounter for fracture, R63.0 - Anorexia, R79.89 - Other specified abnormal findings of blood chemistry HIV Ab/Ag Today E87.1 - Hypo-osmolality and hyponatremia, F03.90 - Unspecified dementia, unspecified severity, without behavioral disturbance, psychotic disturbance, mood disturbance, and anxiety, M80.08XA - Age-related osteoporosis with current pathological fracture, vertebra(e), initial encounter for fracture, R63.0 - Anorexia, R79.89 - Other specified abnormal findings of blood chemistry Vitamin D 25-OH (D2 and D3) Today E87.1 - Hypo-osmolality and hyponatremia, F03.90 - Unspecified dementia, unspecified severity, without behavioral disturbance, psychotic disturbance, mood disturbance, and anxiety, M80.08XA - Age-related osteoporosis with current pathological fracture, vertebra(e), initial encounter for fracture, R63.0 - Anorexia, R79.89 - Other specified abnormal findings of blood chemistry Hemoglobin A1c Today E87.1 - Hypo-osmolality and hyponatremia, F03.90 - Unspecified dementia, unspecified severity, without behavioral disturbance, psychotic disturbance, mood disturbance, and anxiety, M80.08XA - Age-related osteoporosis with current pathological fracture, vertebra(e), initial encounter for fracture, R63.0 - Anorexia, R79.89 - Other specified abnormal findings of blood chemistry CRP High Sensitivity Today E87.1 - Hypo-osmolality and hyponatremia, F03.90 - Unspecified dementia, unspecified severity, without behavioral disturbance, psychotic disturbance, mood disturbance, and anxiety, M80.08XA - Age-related osteoporosis with current pathological fracture, vertebra(e), initial encounter for fracture, R63.0 - Anorexia, R79.89 - Other specified abnormal findings of blood chemistry Medications: New memantine 14 mg PO DAILY 30 days 30 ea 1RF Discontinued memantine Discontinued Reason: Doctor's Order 7 mg PO DAILY 30 days 30 ea 0RF Coding Level of Care Code Est Pt Level 4 (29284) Diagnoses Dementia F03.90 Insomnia G47.00
[2023-09-17 10:16] VITALS: BP 120/70; PULSE 67; O2SAT 98; BMI 22.1
== END 2023-09-17 10:57 | disposition home or self-care (01) ==
PROVIDERS: PCP Family Medicine; Visit Provider Nurse Practitioner Family
DX: F03.90 Unspecified dementia, unspecified severity, without behavioral disturbance, psychotic disturbance, mood disturbance, and anxiety (principal); G47.00 Insomnia, unspecified
CPT/HCPCS: 99214

== ENCOUNTER → 2023-09-17 10:09 | Outpatient (BNVA) | payer MEDICARE, MEDICAID, SELFPAY | PROVIDERS: PCP Family Medicine; Visit Provider Nurse Practitioner Family | DX: F03.90 Unspecified dementia, unspecified severity, without behavioral disturbance, psychotic disturbance, mood disturbance, and anxiety (principal); G47.00 Insomnia, unspecified | CPT/HCPCS: 99212 ==

== ENCOUNTER 2023-09-18 14:29 | Outpatient (AMB) | payer MEDICARE, MEDICAID, SELFPAY ==
--- NOTE | 2023-09-18 14:34 | MHC.PC.OV ---
Vital Signs 09/18/23 14:35 Height 5 ft Weight 114 lb 4 oz BMI 22.3 BP 128/68 Blood Pressure Location Lt brachial Position Sitting Pulse 83 Pulse Source Pulse Oximeter Pulse Oximetry (%) 98 Oxygen Delivery Method Room Air Intake Visit Reasons: f/u chronic conditions Intake Note: Patient is here to follow up on chronic conditions, and will have Derm. appointment October 26, and saw Neurology yesterday. Allergies aspirin [From Paige Aspirin] Allergy (Unknown, Verified 09/18/23 14:39) nose bleeds Medication List - Last Reconciled 09/18/23 by Chente Massey MD cetirizine (All Day Allergy (cetirizine)) 10 mg PO DAILY PRN 90 days diclofenac sodium 1% (Voltaren Arthritis Pain) 2 grams topical QID 30 days donepezil 5 mg PO BEDTIME fluticasone propionate 50 mcg/actuation (Flonase Allergy Relief) 1 spray intranasal Q12H 30 days melatonin 3 mg PO BEDTIME 30 days memantine 14 mg PO DAILY 30 days olopatadine 0.2% (Pataday Once Daily Relief) 1 drp ophthalmic (eye) DAILY PRN 30 days quetiapine (Seroquel) 1 tab at 5pm and 1 tab at bedtime. 30 days Tobacco use date assessed: 09/18/23 Fall risk assessment: No Falls in past year Last assessed Fall Risk: 09/18/23 Dental Screening Dental Screen Date: 07/03/23 HPI f/u chronic conditions HPI Details 78 y/o female presents to f/u chronic conditions. Has seen Neurology 09/17/23 for advanced dementia. They increased memantine ER from 7mg qd to 14mg qd. Encouraged pt to engage in cognitive and socially stimulating activities. Encouraged to continue physical activity as tolerated. They note UTI has improved and has been doing well. [facility] Medical History Screening for osteoporosis Cervicalgia Compression fracture of L1 vertebra Weakness of both lower extremities Dementia Sleep apnea Smoker Arthritis of both hands Depression Surgical History Hx of tubal ligation Family History Mother Bone cancer Daughter Substance abuse Mental health disorder Father Mental health disorder Social History Household Members Other:: lives with daughter- Housing: Apartment Are you a primary home care manager to a significant other at home: No Do you presently have visiting nurse or other home services: Yes (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 Ricky Quintana, Jessica Norman, Michel Sanchez and colleagues, with an educational amita from [employer]. Review of Systems Const Denies chills, Denies fatigue, Denies fever(s), Denies headache(s) and Denies weakness ENT Denies dizziness and Denies headache(s) Card Denies chest pain, Denies lightheadedness, Denies dyspnea and Denies other (Palpitations) Resp Denies cough, Denies dyspnea, Denies wheezing and Denies other ( shortness of breath) Musc Denies numbness and Denies tingling Neuro Denies dizziness, Denies headache(s), Denies numbness, Denies tingling, Denies paresthesias and Denies weakness Psych Denies anxiety and Denies depression Endo Denies fatigue Aller/Immun Denies wheezing Physical exam (Primary Care) Vital Signs: Last Vital Signs Pulse 83 09/18/23 14:35 BP 128/68 09/18/23 14:35 Pulse Ox 98 09/18/23 14:35 Oxygen Delivery Method Room Air 09/18/23 14:35 BMI result Body Mass Index 22.3 Tobacco/Smoking Status: Tobacco use Status Tobacco use date assessed 09/18/23 09/18/23 14:48 Patient Tobacco Use Status Former Tobacco user 09/18/23 14:36 Tobacco use type Cigarette 09/18/23 14:36 e-Cigarette/Vaping Use Never Used 09/18/23 14:36 Thrive Assessment: Date of Thrive Assessment Date Thrive assessed 12/19/20 09/18/23 14:36 Const General: no acute distress and well developed Nutritional Appearance: well nourished Orientation/consciousness: patient oriented x3 HENMT Head: Yes normocephalic and Yes atraumatic Eyes General: appearance normal, both eyes and all related structures Pupils: Equal, round and reactive pupils present EOM: EOMs intact bilaterally Resp Effort & Inspection: normal respiratory effort Auscultation: clear to auscultation bilaterally Cardio Rate: regular rate Rhythm: regular rhythm Heart sounds: S1 normal heart sound present, S2 normal heart sound present, no gallops, no murmurs and no rubs Neuro General: patient oriented x3 and gait normal Cranial nerves: Yes Equal, round and reactive pupils present Psych Affect: normal affect Assessment and Plan Assessment & Plan (1) Dementia: Comment: Advanced. Code(s): F03.90 - Unspecified dementia, unspecified severity, without behavioral disturbance, psychotic disturbance, mood disturbance, and anxiety Plan: Fairly?stable?and?doing?well?on?memantine,?donepezil?and?quetiapine Memantine?was?recently?increased?so?family?is?not?sure?if?this?has?resulted?in?any?difference?yet. Continue?current?medications Continue?good?social?interactions?and?puzzles?games?and?exercise. (2) Neoplasm of uncertain behavior of skin: Code(s): D48.5 - Neoplasm of uncertain behavior of skin Plan: She?has?an?appointment?with?Dermatology?October? (3) Frequent UTI: Code(s): N39.0 - Urinary tract infection, site not specified Plan: Patient?saw?Urology?and?has?plan?in?place?to?call?urology?for?any?new?symptoms?of?urinary?tract?infection No?symptoms?since?visit?with?Urology?however Stable Plan She?had?had?issues?with?poor?appetite?in?the?past?but?this?has?resolved.??Weight?is?steady. Coding Level of Care Code Est Pt Level 3 (65213) Diagnoses Dementia F03.90 Neoplasm of uncertain behavior of skin D48.5 Frequent UTI N39.0
[2023-09-18 14:35] VITALS: BP 128/68; PULSE 83; O2SAT 98; BMI 22.3
== END 2023-09-18 14:59 | disposition home or self-care (01) ==
PROVIDERS: PCP Family Medicine; Visit Provider Family Medicine
DX: F03.90 Unspecified dementia, unspecified severity, without behavioral disturbance, psychotic disturbance, mood disturbance, and anxiety (principal); D48.5 Neoplasm of uncertain behavior of skin; N39.0 Urinary tract infection, site not specified
CPT/HCPCS: 99213

== ENCOUNTER 2023-09-18 15:23 | Outpatient (REF) | payer MEDICARE, MEDICAID, SELFPAY ==
[2023-09-18 15:50] LABS: MANUAL DIFF FLAG NO
[2023-09-18 15:59] LABS: Basophils Absolute Auto 0.1 X10*3/uL (0.0-0.2); Basophils Percent Auto 1.4 % (0-2); Eosinophils Absolute Auto 0.1 X10*3/uL (0.0-0.4); Eosinophils Percent Auto 1.2 % (0-4); Hematocrit 41.8 % (37.0-47.0); Hemoglobin 14.3 g/dl (12.0-16.0); Imm Gran Abs Auto 0.01 X10*3/uL (0.00-0.03); Imm Gran Pct Auto 0.2 % (0.0-0.4); Lymphocytes Absolute Auto 1.5 X10*3/uL (1.2-4.9); Mean Corpuscular HGB Conc 34.2 g/dl (31.0-35.0); Mean Corpuscular Hemoglobin 30.4 pg (27.0-33.0); Mean Corpuscular Volume 88.7 fL (80.0-98.0); Mean Platelet Volume 8.7 fL (9.4-12.3); Monocytes Absolute Auto 0.3 X10*3/uL (0.1-1.2); Monocytes Percent Auto 6.6 % (2-11); Neutrophils Absolute Auto 2.9 x10*3/uL (2.0-8.3); Neutrophils Percent Auto 59.6 % (45-73); Platelet Count 287 X10*3/uL (160-400); Red Blood Count 4.71 X10*6/uL (4.20-5.50); Red Cell Distribution Width 12.1 % (11.0-16.0); White Blood Count 4.9 X10*3/uL (4.8-10.8)
[2023-09-18 16:10] LABS: Estimated Average Glucose 108 mg/dL; Hemoglobin A1c % 5.4 % (<6.0)
[2023-09-18 16:37] LABS: Erythrocyte Sedimentation Rate 9 MM/HR (0-20)
[2023-09-18 16:58] LABS: Alanine Aminotransferase 41 U/L (0-31); Albumin Level 4.1 g/dL (3.5-5.0); Alkaline Phosphatase 114 U/L (39-117); Anion Gap 14 (12-20); Aspartate Amino Transferase 44 U/L (5-31); Bilirubin Total 0.5 mg/dL (0.0-1.0); Blood Urea Nitrogen 9 mg/dL (9-16); Calcium 9.2 mg/dL (8.4-10.2); Carbon Dioxide 29 mmol/L (22-29); Chloride 95 mmol/L (96-108); Estimated Glomerular Filt Rate > 60; Glucose Random 105 mg/dL (60-115); Sodium 134 mmol/L (135-145); Total Protein 7.3 g/dL (6.5-8.0)
[2023-09-18 17:29] LABS: Folate 7.9 ng/mL (> or = 4.0); Vitamin B12 363 pg/mL (200-900)
[2023-09-19 04:27] LABS: Syphilis Screen Nonreactive (Nonreactive)
[2023-09-19 04:48] LABS: HIV AB/AG Nonreactive (Nonreactive); HIV Num 1 0.05 S/CO (0.00-0.99)
[2023-09-19 14:48] LABS: CRP High Sensitivity 6.9 mg/L
[2023-09-23 08:59] LABS: Methylmalonic Acid 248 nmol/L (87-318)
[2023-09-23 15:28] LABS: Vitamin D 25-OH, D2 <4 ng/mL; Vitamin D 25-OH, D3 26 ng/mL; Vitamin D 25-OH, Total 26 ng/mL (30-100)
== END 2023-09-18 15:24 | disposition home or self-care (01) ==
LOC: HO.LAB 15:23
PROVIDERS: PCP Family Medicine; Visit Provider Nurse Practitioner Family
DX: E87.1 Hypo-osmolality and hyponatremia (principal); F03.90 Unspecified dementia, unspecified severity, without behavioral disturbance, psychotic disturbance, mood disturbance, and anxiety; R79.89 Other specified abnormal findings of blood chemistry; R63.0 Anorexia; M80.08XA Age-related osteoporosis with current pathological fracture, vertebra(e), initial encounter for fracture
CPT/HCPCS: 36415; 80053; 82306; 82607; 82746; 83036; 83090; 83921; 85025; 85652; 86141; 86780; 87389

== ENCOUNTER 2023-09-20 10:48 | Outpatient (REF) | payer MEDICARE, MEDICAID, SELFPAY ==
[2023-09-23 19:08] LABS: Homocysteine 12.4 umol/L (<10.4)
== END 2023-09-20 10:49 | disposition home or self-care (01) ==
LOC: HO.LAB 10:48
PROVIDERS: PCP Family Medicine; Visit Provider Nurse Practitioner Family
DX: E87.1 Hypo-osmolality and hyponatremia (principal); F03.90 Unspecified dementia, unspecified severity, without behavioral disturbance, psychotic disturbance, mood disturbance, and anxiety; R79.89 Other specified abnormal findings of blood chemistry; R63.0 Anorexia; M80.08XA Age-related osteoporosis with current pathological fracture, vertebra(e), initial encounter for fracture; X58.XXXA Exposure to other specified factors, initial encounter; Y93.9 Activity, unspecified; Y92.9 Unspecified place or not applicable; Y99.9 Unspecified external cause status
CPT/HCPCS: 36415; 83090

== ENCOUNTER 2023-12-22 15:38 | Outpatient (AMB) | payer MEDICARE, MEDICAID, SELFPAY ==
--- NOTE | 2023-12-22 15:41 | MHC.PC.OV ---
Vital Signs 12/22/23 15:46 Height 5 ft 1 in Weight 117 lb 8 oz BMI 22.2 BP 134/70 Blood Pressure Location Rt brachial Position Sitting Respiration 16 Pulse 72 Pulse Source Pulse Oximeter Temp 96.9 F Temp Source Tympanic Pulse Oximetry (%) 97 Oxygen Delivery Method Room Air Intake Visit Reasons: f/u chronic conditions Intake Note: f/u for chronic conditions and dementia Allergies aspirin [From Paige Aspirin] Allergy (Unknown, Verified 12/22/23 15:44) nose bleeds Medication List - Last Reconciled 12/22/23 by Chente Massey MD cetirizine (All Day Allergy (cetirizine)) 10 mg PO DAILY PRN 90 days cholecalciferol (vitamin D3) 25 mcg PO DAILY 30 days donepezil 5 mg PO BEDTIME fluticasone propionate 50 mcg/actuation (Flonase Allergy Relief) 1 spray intranasal Q12H 30 days melatonin 3 mg PO BEDTIME 30 days memantine 21 mg PO Q24H 30 days olopatadine 0.2% (Pataday Once Daily Relief) 1 drp ophthalmic (eye) DAILY PRN 30 days quetiapine (Seroquel) 1 tab at 5pm and 1 tab at bedtime. 30 days Tobacco use date assessed: 09/18/23 Dental Screening Dental Screen Date: 07/03/23 HPI f/u chronic conditions HPI Details 78 y/o female presents to f/u chronic conditions including dementia, frequent UTIs, neoplasm of skin and appetite. She has gained about 3 lbs since last office visit in August - 114 lb to 117. Labs drawn 09/18/23. Reviewed labs with pt. Mildly low sodium at 134. Elevated liver enzymes - AST of 44 and ALT of 41. A1c 5.4%. CRP elevated at 6.9. Low vitamin D at 26 ng/mL. HPI Comments History of Present Illness Details Documentation assistance for Chente Massey MD, was provided by Moisés Baltazar, Home Health Nurse on 12/22/2023 at 3:57 PM EST. I, Dr. Massey, have read, observed, and verified documentation. [facility] Medical History (Reviewed 09/18/23 @ 14:42 by Vivienne Thomas [facility]) Screening for osteoporosis Cervicalgia Compression fracture of L1 vertebra Weakness of both lower extremities Dementia Sleep apnea Smoker Arthritis of both hands Depression Surgical History Hx of tubal ligation Family History Mother Bone cancer Daughter Substance abuse Mental health disorder Father Mental health disorder Social History Household Members Other:: lives with daughter- Housing: Apartment Are you a primary clinical care coordinator to a significant other at home: No Do you presently have visiting nurse or other home services: Yes (COUNSELOR MANAGER 18/11) Alcohol intake: never Patient Tobacco Use Status: Former Tobacco user Tobacco use type: Cigarette Cigarette Packs Per Day: 3 Cigarettes Per Day: 60.0 Years Smoked: 40+ e-Cigarette/Vaping Use: Never Used Second Hand Smoke Exposure: No service: No Current occupational status: retired Current occupational exposures/hazards: No Cognitive needs: No Hearing needs: No Vision needs: No Questionnaire Thrive Questionnaire Date Thrive assessed: 12/19/20 JONATHAN-7 AMB Questionnaire JONATHAN-7 Date JONATHAN - 7 assessed: 12/19/20 Source: Developed by Drs. Ricky Quintana, Jessica Norman, Michel Sanchez and colleagues, with an educational amita from [employer]. Review of Systems Const Denies chills, Denies fatigue, Denies fever(s), Denies headache(s) and Denies weakness ENT Denies dizziness and Denies headache(s) Card Denies dyspnea Resp Denies cough, Denies dyspnea, Denies wheezing and Denies other (shortness of breath) Musc Denies numbness and Denies tingling Neuro Denies dizziness, Denies headache(s), Denies numbness, Denies tingling and Denies weakness Psych Denies anxiety and Denies depression Endo Denies fatigue Aller/Immun Denies wheezing Physical exam (Primary Care) Vital Signs: Last Vital Signs Temp 96.9 F 12/22/23 15:46 Pulse 72 12/22/23 15:46 Resp 16 12/22/23 15:46 BP 134/70 12/22/23 15:46 Pulse Ox 97 12/22/23 15:46 Oxygen Delivery Method Room Air 12/22/23 15:46 BMI result Body Mass Index 22.2 Tobacco/Smoking Status: Tobacco use Status Tobacco use date assessed 09/18/23 12/22/23 15:42 Patient Tobacco Use Status Former Tobacco user 12/22/23 15:42 Tobacco use type Cigarette 12/22/23 15:42 e-Cigarette/Vaping Use Never Used 12/22/23 15:42 Thrive Assessment: Date of Thrive Assessment Date Thrive assessed 12/19/20 12/22/23 15:42 Const General: well developed; No acute distress Nutritional Appearance: well nourished Orientation/consciousness: patient oriented x3 HENMT Head: Yes normocephalic and Yes atraumatic Eyes General: appearance normal, both eyes and all related structures Pupils: Equal, round and reactive pupils present EOM: EOMs intact bilaterally Resp Effort & Inspection: normal respiratory effort Auscultation: clear to auscultation bilaterally Cardio Rate: regular rate Rhythm: regular rhythm Heart sounds: S1 normal heart sound present, S2 normal heart sound present, no gallops, no murmurs and no rubs Neuro General: patient oriented x3 and gait normal Cranial nerves: Yes Equal, round and reactive pupils present Psych Affect: normal affect Assessment and Plan Assessment & Plan (1) Dementia: Comment: Advanced. Code(s): F03.90 - Unspecified dementia, unspecified severity, without behavioral disturbance, psychotic disturbance, mood disturbance, and anxiety Plan: Stable Continue?current?medication?regimen?including?memantine,?quetiapine?and?donepezil. (2) Elevated liver enzymes: Code(s): R74.8 - Abnormal levels of other serum enzymes Plan: Mildly?elevated?liver?enzymes. Discussed?with?patient's?daughter?to?determine?how?aggressive?they?would?like?to?be?as?far?as?investigating?this. Encouraged?regular?meals?but?decrease?daily?caloric?intake?for?mild?weight?loss Will?continue?to?monitor?liver?enzymes. If?she?has?a?significant?increase?in?liver?enzymes,?will?check?an?ultrasound (3) Low vitamin D level: Code(s): R79.89 - Other specified abnormal findings of blood chemistry Plan: Will?increase?vitamin-D?from?25?mcg?daily?to?50?mcg?daily Recheck?at?next?visit (4) Frequent UTI: Code(s): N39.0 - Urinary tract infection, site not specified Plan: Now?followed?by?Urology?and?patient's?daughter?says?she?has?had?no?further?UTI Follow-up?with?urology?as?recommended Orders: Orders Vitamin D 25-OH Total Today E55.9 - Vitamin D deficiency, unspecified, R79.89 - Other specified abnormal findings of blood chemistry Comprehensive [place]. Panel Fast Today R74.8 - Abnormal levels of other serum enzymes, Z00.00 - Encounter for general adult medical examination without abnormal findings Lipid Panel Today Z00.00 - Encounter for general adult medical examination without abnormal findings Microalbumin, Random (w Creat) Today I10 - Essential (primary) hypertension TSH reflex Free T4 Today Z00.00 - Encounter for general adult medical examination without abnormal findings Comprehensive Met. Panel Today R74.8 - Abnormal levels of other serum enzymes UA and rflx microscopic Today Z00.00 - Encounter for general adult medical examination without abnormal findings Medications: Changed From cholecalciferol (vitamin D3) 25 mcg PO DAILY 30 days 30 caps 6RF R79.89 - Other specified abnormal findings of blood chemistry To cholecalciferol (vitamin D3) 50 mcg PO DAILY 30 days 30 caps 6RF R79.89 - Other specified abnormal findings of blood chemistry Coding Level of Care Code Est Pt Level 4 (35828) Diagnoses Dementia F03.90 Elevated liver enzymes R74.8 Low vitamin D level R79.89 Frequent UTI N39.0
[2023-12-22 15:46] VITALS: BP 134/70; PULSE 72; RESP 16; TEMP 36.1; O2SAT 97; BMI 22.2
== END 2023-12-22 16:09 | disposition home or self-care (01) ==
PROVIDERS: PCP Family Medicine; Visit Provider Family Medicine
DX: F03.90 Unspecified dementia, unspecified severity, without behavioral disturbance, psychotic disturbance, mood disturbance, and anxiety (principal); R74.8 Abnormal levels of other serum enzymes; R79.89 Other specified abnormal findings of blood chemistry; N39.0 Urinary tract infection, site not specified
CPT/HCPCS: 99214

== ENCOUNTER 2023-12-31 16:36 | Outpatient (REF) | payer MEDICARE, MEDICAID, SELFPAY ==
[2023-12-31 17:12] LABS: Appearance Urine Clear; Color Urine Yellow; Glucose Urine UA Negative (Negative); Leukocyte Esterase Urine Large (3+) (Negative); Nitrite Urine Negative (Negative); PH 6.5 (5.0-9.0); Specific Gravity - Urine 1.015 (1.005-1.025); UMIC TRIGGER UA YES; Urine Blood Trace (Negative); Urine Ketones Negative (Negative); Urine Protein Negative (Neg-Trace)
[2023-12-31 17:15] LABS: Bacteria Urine None Seen (None Seen); Hyaline Casts Urine 0-2 /LPF (0-2); Squamous Epithelial Cell Urine 0-2 /HPF (0-2); WBC Urine >50 /HPF (0-5)
== END 2023-12-31 16:37 | disposition home or self-care (01) ==
LOC: HO.LAB 16:36
PROVIDERS: PCP Family Medicine; Visit Provider Nurse Practitioner Family
DX: N39.0 Urinary tract infection, site not specified (principal); R82.90 Unspecified abnormal findings in urine
CPT/HCPCS: 81001; 87086

== ENCOUNTER 2024-02-17 11:28 | Outpatient (AMB) | payer MEDICARE, MEDICAID, SELFPAY ==
--- NOTE | 2024-02-17 11:29 | A.OFFVIS_ITS ---
Intake Visit Reasons: 6m follow up Intake Note: Patient presents today for follow up on: frequent uti Urology Medications: none Blood Thinner: none PVR: 13ml's Sap Project Manager Required: No Accompanied by: Daughter and W[employer] SCIENCE [employer] PLANNING Allergies aspirin [From Paige Aspirin] Allergy (Unknown, Verified 02/17/24 12:30) nose bleeds Medication List - Last Reconciled 02/17/24 by SIMON Conley-SASCHA cetirizine (All Day Allergy (cetirizine)) 10 mg PO DAILY PRN 90 days cholecalciferol (vitamin D3) 50 mcg PO DAILY 30 days donepezil 5 mg PO BEDTIME estradiol 0.01%(0.1mg/gram) pea sized amount to urethra daily x1 month; 3 times a week thereafter. 30 days fluticasone propionate 50 mcg/actuation (Flonase Allergy Relief) 1 spray intranasal Q12H 30 days melatonin 3 mg PO BEDTIME 30 days memantine 28 mg PO Q24H 30 days olopatadine 0.2% (Pataday Once Daily Relief) 1 drp ophthalmic (eye) DAILY PRN 30 days quetiapine (Seroquel) 1 tab at 5pm and 1 tab at bedtime. 30 days HPI Comments Details: Connie is a very pleasant 78-year-old [place]itanian-speaking female patient of Dr. Massey who was accompanied by her WIND SCIENCE [employer] PLANNING and daughter at today's office visit. She has a past medical history of cervicalgia, dementia, sleep apnea, arthritis, smoker, and depression. She presents to the office today for follow-up of her recurrent urinary tract infections. Of note, patient was seen approximately 6 months ago at which time a retroperitoneal ultrasound was ordered for further assessment evaluation. These results were reviewed with the patient and her family today. Bilateral kidneys with no calculi, lesions, and or hydronephrosis. The bladder is partially distended. Pre void bladder volume is approximately 120 mL. Postvoid bladder volume was not obtained. In discussion with the patient and her family today she denies having had any bothersome urinary issues or concerns since her last office visit here. In review of patient's chart it appears patient had urinary tract infection 03/20 and again 04/19 E coli noted. In office urinalysis results reviewed with the patient today 3+ leukocytes negative nitrates. She currently denies any UTI like symptoms however typically she does not present with any UTI like symptoms. Given patient's history of dementia she is somewhat a poor historian therefore patient's daughter and WIND SCIENCE AND PLANNING provide much of today's history. They deny patient to have had any bothersome urinary issues. Patient's daughter reports feeling UTIs were due to adult pull-ups she had been wearing however patient is now with 24 hour care and they have been performing timed/scheduled voiding in patient has had no incontinent issues not requiring adult pull-ups. She discusses feeling this has been helpful. PVR 13 mL. Discussed at length potential causes for recurrent urinary tract infections. She otherwise offers no other issues or concerns at this time. [facility] Medical History Screening for osteoporosis Cervicalgia Compression fracture of L1 vertebra Weakness of both lower extremities Dementia Sleep apnea Smoker Arthritis of both hands Depression Surgical History Hx of tubal ligation Family History Mother Bone cancer Daughter Substance abuse Mental health disorder Father Mental health disorder Social History Household Members Other:: lives with daughter- Housing: Apartment Are you a primary senior care specialist to a significant other at home: No Do you presently have visiting nurse or other home services: Yes (WIND SCIENCE [employer] PLANNING 18/11) Alcohol intake: never Patient Tobacco Use Status: Former Tobacco user Tobacco use type: Cigarette Cigarette Packs Per Day: 3 Cigarettes Per Day: 60.0 Years Smoked: 40+ e-Cigarette/Vaping Use: Never Used Second Hand Smoke Exposure: No service: No Current occupational status: retired Current occupational exposures/hazards: No Cognitive needs: No Hearing needs: No Vision needs: No Review of Systems Const Reports as per HPI Eyes Reports no additional complaints ENT Reports no additional complaints Card Reports no additional complaints Resp Reports as per HPI GI Reports no additional complaints Reports as per HPI Musc Reports as per HPI Neuro Reports as per HPI Psych Reports no additional complaints Dell/Lymph Reports no additional complaints Aller/Immun Reports no additional complaints Physical Exam Const General: cooperative, healthy appearing, comfortable, no acute distress, well developed, alert and awake Orientation/consciousness: patient oriented x3 Limitations: no limitations HEENT Head: Yes normal to inspection, Yes normocephalic and Yes atraumatic Ears: hearing grossly normal bilaterally Eyes General: appearance normal, both eyes and all related structures Neck Neck: Yes normal visual inspection and Yes trachea midline Chest Chest palpation & inspection: normal inspection of the chest Resp Effort & Inspection: normal respiratory effort and able to speak in complete sentences Cardio Rate: regular rate GI Inspection: Yes normal to inspection General: Yes no CVA tenderness Back/Spine/Pelvis Back: no CVA tenderness Skin General skin exam: no rashes or lesions noted Neuro General: patient oriented x3 Extrem General: Yes normal to inspection Psych Appearance: grossly normal and well kempt Mental Status: mental status grossly normal Speech and movement: Normal speech and movement present and Clear speech present Affect: normal affect Attitude: cooperative Thought process: Normal thought process present Thought content: Normal thought content present Insight: Limited insight present (Psych) Judgement: Limited judgement present (Psych) Office Procedures Post Void Residual Post Residual Void Post Void Residual (PVR): 13 54995-Fxra Void Residual by ultrasound Results AMB Urinalysis, Automated UA Leukoctes 500 He/uL Last Edit by [employer] on 02/17/24 11:56 UA Nitrite Negative Last Edit by [employer] on 02/17/24 11:56 UA Urobilinogen 0.2 mg/dL Last Edit by [employer] on 02/17/24 11:56 UA Protein 15 mg/dL Last Edit by [employer] on 02/17/24 11:56 UA pH 6.0 Last Edit by [employer] on 02/17/24 11:56 UA Blood 25 Will/uL Last Edit by [employer] on 02/17/24 11:56 UA Specific [place] 1.015 Last Edit by [employer] on 02/17/24 11:56 UA Ketone Negative Last Edit by [employer] on 02/17/24 11:56 UA Bilirubin 0 mg/dL Last Edit by Damien Pool on 02/17/24 11:56 UA Glucose 0 mg/dL Last Edit by Damien Pool on 02/17/24 11:56 Results Reviewed Results Reviewed: Laboratory Last Values Urine pH (Auto) 6.0 02/17/24 11:44 Specific [place] (Auto) 1.015 02/17/24 11:44 Urine Protein (Auto) 15 mg/dL 02/17/24 11:44 Glucose (UA)(Auto) 0 mg/dL 02/17/24 11:44 Urine Ketones (Auto) Negative 02/17/24 11:44 Urine Blood (Auto) 25 Will/uL 02/17/24 11:44 Urine Nitrite (Auto) Negative 02/17/24 11:44 Urine Bilirubin (Auto) 0 mg/dL 02/17/24 11:44 Urine Urobilinogen (Auto) 0.2 mg/dL 02/17/24 11:44 Leukocyte Esterase (Auto) 500 He/uL 02/17/24 11:44 Date of Service: 09/04/23 EXAMINATION: US RETROPERITONEAL COMPLETE (RENAL) FINDINGS: RIGHT KIDNEY: 10.6 x 3.2 x 4.6 cm (SAG x AP x TRV). The kidney is normal in size, contour, and echogenicity. Renal cortical thickness is normal. No calculi or focal parenchymal lesions. No hydronephrosis. LEFT KIDNEY: 9.3 x 3.9 x 4.3 cm (SAG x AP x TRV). The kidney is normal in size, contour, and echogenicity. Renal cortical thickness is normal. No calculi or focal parenchymal lesions. No hydronephrosis. BLADDER: Partially distended. Left ureteral jet is demonstrated; right is not. Prevoid bladder volume is 117 mL. Postvoid bladder volume was not obtained. IMPRESSION: Unremarkable examination. Assessment & Plan Assessment & Plan (1) Frequent UTI: Code(s): N39.0 - Urinary tract infection, site not specified Category: Medical Plan In office urinalysis results reviewed with the patient today; as noted above; will send for urine culture and await results for potential treatment. PVR 13 mL. Recent retroperitoneal ultrasound results reviewed with the patient and her family today. Patient/family deny any bothersome urinary issues or concerns. Start Estrace cream as discussed and prescribed. We discussed at length potential causes of recurrent urinary tract infections. Discussed UTI prevention with D mannose supplement, vitamin-C, increasing fluid intake, behavioral therapy with timed voiding, perineal hygiene and postcoital voiding, and management of constipation with stool softeners and increased fiber intake. Follow-up in 6 months with PVR; or sooner with any issues, concerns, and or questions. Orders: Orders Urine Culture Today N39.0 - Urinary tract infection, site not specified AMB Urinalysis Automated Today Z13.9 - Encounter for screening, unspecified AMB Post Void Residual by ultrasound Today N39.0 - Urinary tract infection, site not specified Medications: New estradiol 0.01%(0.1mg/gram) pea sized amount to urethra daily x1 month; 3 times a week thereafter. 30 days 42.5 grams 2RF Patient Instructions: The patient had an opportunity to ask questions regarding the treatment plan. All questions were answered. Physical exam, labs, and imaging were discussed and reviewed in detail. As well as risks, benefits, and discussion of treatment choices. No major barriers to understanding were identified. The patient expressed understanding and agreement with the above treatment plan. The patient was made aware they should contact our office by phone for worsening of their current condition, the appearance of new symptoms, or with any questions or concerns. Compliance is encouraged with any medications and follow up testing that is ordered. It is a privilege to be allowed the opportunity to participate in? your urological care.? Again, if you have any questions or concerns If you have any questions or concerns please do not hesitate to contact me. The office is [phone]. This note is constructed using voice recognition software. While every effort has been made to ensure accuracy half section ironer errors may have been included. Yours sincerely, DAKOTA Conley Coding Level of Care Code Est Pt Level 4 (62020) Complex EM visit Add On G2211 Diagnoses Frequent UTI N39.0 CPT Codes Post Residual Void - PVR CPT Code: 56488-Vlpe Void Residual by ultrasound ([id number])
== END 2024-02-17 12:07 | disposition home or self-care (01) ==
PROVIDERS: PCP Family Medicine; Visit Provider Nurse Practitioner Family
DX: Z13.9 Encounter for screening, unspecified (principal); N39.0 Urinary tract infection, site not specified
CPT/HCPCS: 99214; G2211

== ENCOUNTER 2024-02-17 11:28 | Outpatient (REF) | payer MEDICARE, MEDICAID, SELFPAY | END 2024-02-17 11:29 | disposition home or self-care (01) | LOC: HO.LNP 11:28 | PROVIDERS: PCP Family Medicine; Visit Provider Nurse Practitioner Family | DX: N39.0 Urinary tract infection, site not specified (principal) | CPT/HCPCS: 51798; 81003; 87086; 99212 ==

== ENCOUNTER 2024-03-20 10:14 | Outpatient (REF) | payer MEDICARE, MEDICAID, SELFPAY ==
[2024-03-20 11:31] LABS: Appearance Urine Clear; Color Urine Yellow; Glucose Urine UA Negative (Negative); Leukocyte Esterase Urine Moderate (2+) (Negative); Nitrite Urine Negative (Negative); Specific Gravity - Urine 1.015 (1.005-1.025); UMIC TRIGGER UA YES; Urine Blood Negative (Negative); Urine Ketones Negative (Negative); Urine Protein Negative (Neg-Trace)
[2024-03-20 11:37] LABS: Bacteria Urine None Seen (None Seen); Hyaline Casts Urine 0-2 /LPF (0-2); RBC Urine 0-2 /HPF (0-2); Squamous Epithelial Cell Urine 0-2 /HPF (0-2)
== END 2024-03-20 10:15 | disposition home or self-care (01) ==
LOC: HO.LAB 10:14
PROVIDERS: PCP Family Medicine; Visit Provider Nurse Practitioner Family
DX: N39.0 Urinary tract infection, site not specified (principal)
CPT/HCPCS: 81001; 87086

== ENCOUNTER 2024-04-09 15:18 | Outpatient (AMB) | payer MEDICARE, MEDICAID, SELFPAY ==
--- NOTE | 2024-04-09 15:30 | A.OFFVIS_ITS ---
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 Required: No Accompanied by: Daughter Allergies aspirin [From [facility]] Allergy (Unknown, Verified 04/09/24 15:33) nose bleeds Medication List - Last Reconciled 04/09/24 by SIMON Arroyo ascorbic acid (vitamin C) 1 g PO Q6H 30 days cetirizine (All Day Allergy (cetirizine)) 10 mg PO DAILY PRN 90 days cholecalciferol (vitamin D3) 50 mcg PO DAILY 30 days donepezil 5 mg PO BEDTIME fluticasone propionate 50 mcg/actuation (Flonase Allergy Relief) 1 spray intranasal Q12H 30 days melatonin 3 mg PO BEDTIME 30 days memantine 21 mg PO DAILY 30 days methenamine hippurate 1 g PO DAILY 30 days olopatadine 0.2% (Pataday Once Daily Relief) 1 drp ophthalmic (eye) DAILY PRN 30 days quetiapine (Seroquel) 1 tab at 5pm and 1 tab at bedtime. 30 days Do you need a note to return to daycare/school/sports/work: No HPI Comments Details: 78-yr-old female presents for f/u visit. Pt accompanied by her dtr, Jelly. Interval labs were notable for low vit D- pt has started supplement. Low norm B- 12. Pt had tolerated increasing Namenda from 7mg ER qd up to 21mg ER qd, however when we increased the dose to 28mg ER qd, pt was not sleeping well, was more agitated, was checking the doors repeatedly. Thus, we decreased the dose back to 21mg ER, and pt is doing better. She is compliant w/ Donepazil 5mg. In the past, pt was more combative when Donepazil was increased to 10mg qd. She is still forgetful, but sometimes memory is better. She has been better at telling a family story and being more accurate with some of the details. She is not doing anything dangerous- does not use stove or leave water running- family and caregivers keep a close eye on her. She has 24/ support. She is eating ok, sometimes less- but this is typical for her. Pt denies any pain. She does like to play dominos- plays dominos. Pt does not exercise. Has a bike, which she does not use, but no one else can use it. She uses Quetiapine- dtr states she thinks it is 25mg qhs- helps with sleep, may still wake up at night and does not sleep well. 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) Alcohol intake: never Patient Tobacco Use Status: Former Tobacco user Tobacco use type: Cigarette Cigarette Packs Per Day: 3 Cigarettes Per Day: 60.0 Years Smoked: 40+ e-Cigarette/Vaping Use: Never Used Second Hand Smoke Exposure: No service: No Current occupational status: retired Current occupational exposures/hazards: No Cognitive needs: No Hearing needs: No Vision needs: No Physical Exam Vital Signs: Last Vital Signs Pulse 68 04/09/24 15:31 BP 152/80 H 04/09/24 15:31 Pulse Ox 97 04/09/24 15:31 Oxygen Delivery Method Room Air 04/09/24 15:31 BMI result Body Mass Index 24.0 Const General: cooperative and no acute distress HEENT Head: Yes normocephalic Resp Effort & Inspection: normal respiratory effort and able to speak in complete sentences Neuro Other: Pt is alert to person. Responds appropriately w/ STM lapses General: gait normal and moves all extremities Psych Appearance: grossly normal Speech and movement: Normal speech and movement present Affect: normal affect Attitude: cooperative Assessment & Plan Assessment & Plan (1) Dementia: Comment: Advanced. Code(s): F03.90 - Unspecified dementia, unspecified severity, without behavioral disturbance, psychotic disturbance, mood disturbance, and anxiety Category: Medical (2) Insomnia: Code(s): G47.00 - Insomnia, unspecified Category: Medical (3) Low vitamin D level: Code(s): R79.89 - Other specified abnormal findings of blood chemistry Category: Medical Plan Labs reviewed- Recheck Vit D- order in place by PCP, Recheck B12, homocysteine and mma levels- w/ next routine labs. Continue Memantine ER 21mg qd. Continue Donepazil 5mg qd.- pt did not tolerate higher dose. Continue Quetiapine 25mg qhs- note order if for q 5pm and qhs- per PCP. Pervious trials- Memantine ER 28mg and Donepazil 10mg- not tolerated, caused agitation. Continue 24/7 supervision. Continue encouraging pt to engage in cognitive and socially stimulating activities- dominos, puzzles, word finding puzzles. Continue encouraging physical activity as tolerated- walking, try using her stationary bike. f/u upon review of above and in-clinic in 6 months or sooner prn. Coding Level of Care Code Est Pt Level 4 (28246) Diagnoses Dementia F03.90 Insomnia G47.00 Low vitamin D level R79.89
[2024-04-09 15:31] VITALS: BP 152/80; PULSE 68; O2SAT 97; BMI 24.0
== END 2024-04-09 16:00 | disposition home or self-care (01) ==
PROVIDERS: PCP Family Medicine; Visit Provider Nurse Practitioner Family
DX: F03.90 Unspecified dementia, unspecified severity, without behavioral disturbance, psychotic disturbance, mood disturbance, and anxiety (principal); G47.00 Insomnia, unspecified; R79.89 Other specified abnormal findings of blood chemistry
CPT/HCPCS: 99214

== ENCOUNTER → 2024-04-09 15:18 | Outpatient (BNVA) | payer MEDICARE, MEDICAID, SELFPAY | PROVIDERS: PCP Family Medicine; Visit Provider Nurse Practitioner Family | DX: G47.00 Insomnia, unspecified (principal); F03.90 Unspecified dementia, unspecified severity, without behavioral disturbance, psychotic disturbance, mood disturbance, and anxiety; R79.89 Other specified abnormal findings of blood chemistry | CPT/HCPCS: 99212 ==

== ENCOUNTER 2024-07-05 14:55 | Outpatient (REF) | payer MEDICARE, MEDICAID, SELFPAY ==
[2024-07-05 17:43] LABS: Appearance Urine Clear; Color Urine Yellow; Glucose Urine UA Negative (Negative); Leukocyte Esterase Urine Moderate (2+) (Negative); Nitrite Urine Negative (Negative); PH 6.5 (5.0-9.0); Specific Gravity - Urine 1.015 (1.005-1.025); UMIC TRIGGER UA YES; Urine Blood Negative (Negative); Urine Ketones Negative (Negative); Urine Protein Negative (Neg-Trace)
[2024-07-05 17:48] LABS: Bacteria Urine None Seen (None Seen); Hyaline Casts Urine 0-2 /LPF (0-2); RBC Urine 0-2 /HPF (0-2); Squamous Epithelial Cell Urine 0-2 /HPF (0-2); WBC Urine 21-50 /HPF (0-5)
[2024-07-05 18:11] LABS: Alanine Aminotransferase 22 U/L (0-31); Albumin Level 3.7 g/dL (3.5-5.0); Alkaline Phosphatase 103 U/L (39-117); Anion Gap 12 (12-20); Aspartate Amino Transferase 27 U/L (5-31); Bilirubin Total 0.5 mg/dL (0.0-1.0); Blood Urea Nitrogen 13 mg/dL (9-16); Calcium 8.9 mg/dL (8.4-10.2); Carbon Dioxide 30 mmol/L (22-29); Chloride 104 mmol/L (96-108); Cholesterol 158 mg/dL (<200); Estimated Glomerular Filt Rate > 60; Glucose Fasting 87 mg/dL (60-99); Glucose Random 87 mg/dL (60-115); HDL Cholesterol 51 mg/dL (>40); LDL Cholesterol Calculated 72 mg/dL (<100); Sodium 142 mmol/L (135-145); Total Protein 6.9 g/dL (6.5-8.0); Triglycerides 175 mg/dL (<150)
[2024-07-05 18:20] LABS: Creatinine Urine 100.37 mg/dL; Microalbum/Creatinine Ratio Ur 28.8 ug/mg cr (<30)
[2024-07-05 18:28] LABS: TSH reflex Free T4 2.34 uIU/mL (0.32-4.0); Vitamin D 25-OH Total 41.5 ng/mL (>30)
[2024-07-05 18:52] LABS: Folate 8.6 ng/mL (> or = 4.0); Vitamin B12 311 pg/mL (200-900)
[2024-07-08 18:23] LABS: Methylmalonic Acid 277 nmol/L (69-390)
== END 2024-07-05 14:56 | disposition home or self-care (01) ==
LOC: HO.WFDLDS 14:55
PROVIDERS: Referring Provider Nurse Practitioner Family; Visit Provider Family Medicine
DX: Z00.00 Encounter for general adult medical examination without abnormal findings (principal); R79.89 Other specified abnormal findings of blood chemistry; R74.8 Abnormal levels of other serum enzymes; E55.9 Vitamin D deficiency, unspecified; I10 Essential (primary) hypertension
CPT/HCPCS: 36415; 80053; 80061; 81001; 82043; 82306; 82570; 82607; 82746; 83921; 84443

== ENCOUNTER 2024-07-07 15:43 | Outpatient (AMB) | payer MEDICARE, MEDICAID, SELFPAY ==
--- NOTE | 2024-07-07 16:33 | MHC.PC.OV ---
Vital Signs 07/07/24 16:49 07/07/24 17:15 Height 5 ft 2 in Weight 121 lb BMI 22.1 BP 140/78 H 140/70 H Blood Pressure Location Lt brachial Lt brachial Position Sitting Sitting Respiration 12 Pulse 71 Pulse Source Pulse Oximeter Temp 98.1 F Temp Source Oral Pulse Oximetry (%) 98 Oxygen Delivery Method Room Air Intake Visit Reasons: Extended exam with f/u labs and health maint. Intake Note: patient is here for extended exam Gravity Manager Required: Yes Gravity Manager Name: pt daughter will translate Aluminum Shingle Roofer: Present Accompanied by: Daughter Is last menstrual period known: No Post menopausal: Yes Patient : No Allergies aspirin [From [facility] Aspirin] Allergy (Unknown, Verified 07/07/24 16:42) nose bleeds Medication List - Last Reconciled 07/07/24 by Chente Massey MD ascorbic acid (vitamin C) 1 g PO Q6H 30 days cetirizine (All Day Allergy (cetirizine)) 10 mg PO DAILY PRN 90 days cholecalciferol (vitamin D3) 50 mcg PO DAILY 30 days donepezil 5 mg PO BEDTIME fluticasone propionate 50 mcg/actuation (Flonase Allergy Relief) 1 spray intranasal Q12H 30 days melatonin 3 mg PO BEDTIME 30 days memantine 21 mg PO DAILY 30 days methenamine hippurate 1 g PO DAILY 30 days olopatadine 0.2% (Pataday Once Daily Relief) 1 drp ophthalmic (eye) DAILY PRN 30 days quetiapine (Seroquel) 1 tab at 5pm and 1 tab at bedtime. 30 days Tobacco use date assessed: 07/07/24 Fall risk assessment: No Falls in past year Last assessed Fall Risk: 07/07/24 Dental Screening Dental Screen Date: 07/07/24 Did you have a dental visit in the last 12 months?: No Did you have a dental problem in the last 6 months where you did not have access to dental care?: No Was dental information given to patient?: No HPI Extended exam with f/u labs and health maint. HPI Details 79 y/o female presents for an extended exam with f/u labs and health maintenance. Labs drawn 07/05/24. Reviewed labs with pt. Triglycerides 175. TC 158. LDL 72. HDL 51. Vitamin D 41.5. PFSH Medical History (Updated 07/07/24 @ 16:59 by Moisés Baltazar) Screening for osteoporosis Cervicalgia Compression fracture of L1 vertebra Weakness of both lower extremities Dementia Sleep apnea Smoker Arthritis of both hands Depression Surgical History Hx of tubal ligation Family History Mother Bone cancer Daughter Substance abuse Mental health disorder Father Mental health disorder Social History Household Members Other:: lives with daughter- Housing: Apartment Are you a primary healthcare risk control consultant to a significant other at home: No Do you presently have visiting nurse or other home services: 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 1. Little interest or pleasure in doing things: several days 2. Feeling down, depressed, or hopeless: several days 3. Trouble falling or staying asleep, or sleeping too much: several days 4. Feeling tired or having little energy: several days 5. Poor appetite or overeating: several days 6. Feeling bad about yourself - or that you are a failure or have let yourself or your family down: not at all 7. Trouble concentrating on things, such as reading the newspaper or watching television: not at all 8. Moving or speaking so slowly that other people could have noticed. Or the opposite - being so fidgety or restless that you have been moving around a lot more than usual: several days 9. Thoughts that you would be better off or of hurting yourself in some way: not at all Total score: 6 Depression Screening Interpretation: Positive Depression Screening Done: Yes 56501 - PHQ-9 Billing: Yes Source: Developed by Drs. Ricky Quintana, JessicaMichel Hinson and colleagues, with an educational amita from [employer]. Thrive Questionnaire Date Thrive assessed: 07/07/24 I am a: Patient What is your living situation today?: I have a steady place to live Within the past 12 months, did the food you bought not last and you didn't have the money to get more?: Never true Within the past 12 months, did you worry whether your food would run out before you got money to buy more?: Never true Do you have trouble paying for medicines?: No Do you have trouble getting transportation to medical appointments?: No Do you have trouble paying your heating and electricity bill?: No Do you have trouble taking care of your child, family member or friend?: No Do you have trouble with day-to-day activities such as bathing, preparing meals, shopping, managing finances, etc.?: Yes Are you currently unemployed and looking for a job?: No Are you interested in more education?: No Please select the resources that you would like help with: None Currently or been in a relationship where the following occur: No concerns reported THRIVE Score: 0 AUDIT C Alcohol Use Questionnaire (AUDIT-C) 1. How often do you have a drink containing alcohol?: Never 3. How often do you have six or more drinks on one occasion?: Never Total Score: 0 Score Reviewed/Action Taken: Yes JONATHAN-7 AMB Questionnaire JONATHAN-7 Date JONATHAN - 7 assessed: 07/07/24 Feeling nervous, anxious, or on edge: 1 = Several days Not being able to stop or control worryin = Not at all Worrying too much about different things: 0 = Not at all Trouble relaxin = Several days Being so restless that it is hard to sit still: 0 = Not at all Becoming easily annoyed or irritable: 1 = Several days Feeling afraid as if something awful might happen: 1 = Several days Total JONATHAN-7 score (0-4 normal; 5-9 mild; 10-14 moderate; 15-21 severe): 4 Source: Developed by Drs. Ricky Quintana, Michel Arizmendi and colleagues, with an educational amita from [employer]. JONATHAN-7 Assessment Billing JONATHAN-7 Assessment Tool: JONATHAN-7 Assessment 83414 Review of Systems Const Denies chills, Denies fatigue, Denies fever(s), Denies headache(s) and Denies weakness Eyes Denies change in vision ENT Denies dizziness, Denies headache(s), Denies hearing loss, Denies nasal congestion, Denies sinus pain, Denies sinus pressure and Denies sore throat Card Denies chest pain, Denies lightheadedness, Denies dyspnea and Denies other (palpitations) Resp Denies cough, Denies dyspnea and Denies wheezing GI Denies abdominal pain, Denies melena, Denies hematochezia, Denies change in bowel habits, Denies dyspepsia and Denies nausea Denies hematuria and Denies dysuria Musc Denies abnormal gait, Denies myalgias, Denies arthralgias, Denies numbness and Denies tingling Skin/Breast Denies rash, Denies unusual bruising and Denies wounds Neuro Denies abnormal gait, Denies dizziness, Denies headache(s), Denies memory loss, Denies numbness, Denies Sensory deficit (Neuro), Denies tingling and Denies weakness Psych Denies anxiety, Denies depression and Denies memory loss Endo Denies cold intolerance, Denies fatigue, Denies heat intolerance, Denies polydipsia and Denies polyuria Dell/Lymph Denies easy bleeding and Denies easy bruising Aller/Immun Denies wheezing Physical exam (Primary Care) Vital Signs: Last Vital Signs Temp 98.1 F 07/07/24 16:49 Pulse 71 07/07/24 16:49 Resp 12 07/07/24 16:49 BP 140/78 H 07/07/24 16:49 Pulse Ox 98 07/07/24 16:49 Oxygen Delivery Method Room Air 07/07/24 16:49 BMI result Body Mass Index 22.1 Tobacco/Smoking Status: Tobacco use Status Tobacco use date assessed 07/07/24 07/07/24 16:53 Patient Tobacco Use Status Former Tobacco user 07/07/24 16:33 Tobacco use type Cigarette 07/07/24 16:33 e-Cigarette/Vaping Use Never Used 07/07/24 16:33 PHQ-9: PHQ-9 Score PHQ-9: Total score 6 07/07/24 17:14 Depression Screening Interpretation: Positive Thrive Assessment: Date of Thrive Assessment Date Thrive assessed 07/07/24 07/07/24 16:53 Currently or been in a relationship where the following occur: No concerns reported Const General: no acute distress, well developed, alert and awake Nutritional Appearance: well nourished Orientation/consciousness: No patient oriented x3 [facility] Head: Yes normocephalic and Yes atraumatic Ears: hearing grossly normal bilaterally and TM's normal bilaterally General nose exam: Normal external nose present and Normal nares present Mouth: Normal oral and palatal mucosa present and moist mucous membranes Teeth and gingiva: dentition normal Throat: Yes posterior oropharynx normal Eyes General: appearance normal, both eyes and all related structures Pupils: Equal, round and reactive pupils present and Pupil accommodation reflex normal EOM: EOMs intact bilaterally Neck Neck: Yes normal visual inspection, Yes no lymphadenopathy and Yes trachea midline Thyroid: Thyroid normal Carotids: no bruits Lymphatic: no lymphadenopathy noted Chest Chest palpation & inspection: normal inspection of the chest Resp Effort & Inspection: normal respiratory effort Auscultation: clear to auscultation bilaterally Cardio Rate: regular rate Rhythm: regular rhythm Heart sounds: S1 normal heart sound present, S2 normal heart sound present, no gallops, no murmurs and no rubs Bruits: no abdominal aortic bruits and no carotid bruits GI Palpation (GI): No Abdominal aortic bruit present, Soft to palpation, nontender, No hepatosplenomegaly present and No Rebound tenderness present Auscultation: normal bowel sounds General: Yes no CVA tenderness Back/Spine/Pelvis Back: no CVA tenderness Cervical Spine: cervical ROM normal and No Cervical spine tenderness Thoracic/Lumbar Spine: thoraco-lumbar ROM normal, No pain with thoraco-lumbar ROM, No thoracic spinal tenderness and No lumbar spinal tenderness Skin Lesions: no lesions Rashes: no rashes Trauma: no lacerations or abrasions Wounds: no wounds Nails: normal Neuro General: No patient oriented x3 and gait normal Cranial nerves: Yes Equal, round and reactive pupils present Cognition (Neuro): normal cognition Gait exam (Neuro): Normal gait present Motor exam (neuro): 5/5 motor strength present throughout Sensory Exam: No Sensory deficit (Neuro) Deep tendon reflexes (DTR's): Right patellar reflex intensity grade: 2+ and Left patellar reflex intensity grade: 2+ Extrem General: Yes normal to inspection and No edema Psych Appearance: grossly normal Affect: normal affect Attitude: cooperative Thought process: Normal thought process present Coding Level of Care Code Est Pt Level 4 (62628) Diagnoses Dementia F03.90 Breast cancer screening by mammogram Z12.31 Screening for osteoporosis Z13.820 Screening for colon cancer Z12.11 Adult general medical exam Z00.00 Additional Codes JONATHAN-7 Assessment Billing - JONATHAN-7 Assessment Tool: JONATHAN-7 Assessment 56920 ([id number]) PHQ-9 - 85944 - PHQ-9 Billing: Yes ([id number]) Assessment & Plan Assessment & Plan (1) Dementia: Comment: Advanced. Code(s): F03.90 - Unspecified dementia, unspecified severity, without behavioral disturbance, psychotic disturbance, mood disturbance, and anxiety Category: Medical Plan: Stable Patient?has?18/11?care?from?family Will?continue?to?monitor (2) Breast cancer screening by mammogram: Code(s): Z12.31 - Encounter for screening mammogram for malignant neoplasm of breast Category: Medical Plan: Daughter?would?like?her?to?have?1?more?mammogram. Subsequently?we?can?switch?to mammograms?for?in?concerns?or?changes Mammogram?ordered (3) Screening for osteoporosis: Code(s): Z13.820 - Encounter for screening for osteoporosis Category: Medical Plan: Patient?has?known?severe?osteoporosis?and?family?had?a?discussion?with?rheumatology.??They?have?opted?to?continue?vitamin-D?but?not?use?a?bisphosphonate?due?to adverse?effects. Will?recheck?bone?density?test?this?year?as?she?is?due. Subsequently?may?discuss?discontinuing?well (4) Screening for colon cancer: Code(s): Z12.11 - Encounter for screening for malignant neoplasm of colon Category: Medical Plan: Discussed?with?family?members No?further?screening?colon?cancer (5) Adult general medical exam: Code(s): Z00.00 - Encounter for general adult medical examination without abnormal findings Category: Medical Plan: 79-year-old?female?presents?for?extended?exam Encouraged?healthy?diet?and?exercise?as?tolerated Fall?prevention: ?Lesion?is?good.??Keep?walk?ways?clear?and?well?lit. Patient?is?ambulating?well.??Advised?to?watch?for?in?weakness.? Orders: Orders Comprehensive [place]. Panel Fast Today Z00.00 - Encounter for general adult medical examination without abnormal findings XR DEXA axial skeleton Today M81.0 - Age-related osteoporosis without current pathological fracture, Z00.00 - Encounter for general adult medical examination without abnormal findings Lipid Panel Today Z00.00 - Encounter for general adult medical examination without abnormal findings MM tomosynthesis screening BI Today Z00.00 - Encounter for general adult medical examination without abnormal findings, Z12.31 - Encounter for screening mammogram for malignant neoplasm of breast
[2024-07-07 16:49] VITALS: BP 140/78; PULSE 71; RESP 12; TEMP 36.7; O2SAT 98; BMI 22.1
[2024-07-07 17:15] VITALS: BP 140/70
== END 2024-07-07 17:13 | disposition home or self-care (01) ==
LOC: HO.HMCFM 15:44
PROVIDERS: PCP Family Medicine; Visit Provider Family Medicine
DX: F03.90 Unspecified dementia, unspecified severity, without behavioral disturbance, psychotic disturbance, mood disturbance, and anxiety (principal); Z12.31 Encounter for screening mammogram for malignant neoplasm of breast; Z13.820 Encounter for screening for osteoporosis; Z12.11 Encounter for screening for malignant neoplasm of colon; Z00.00 Encounter for general adult medical examination without abnormal findings

== ENCOUNTER → 2024-07-07 15:43 | Outpatient (BNVA) | payer MEDICARE, MEDICAID, SELFPAY | PROVIDERS: PCP Family Medicine; Visit Provider Family Medicine | DX: F03.90 Unspecified dementia, unspecified severity, without behavioral disturbance, psychotic disturbance, mood disturbance, and anxiety (principal); Z87.891 Personal history of nicotine dependence | CPT/HCPCS: 96127; 99212 ==

== ENCOUNTER 2024-08-02 09:45 | Outpatient (AMB) | payer MEDICARE, MEDICAID, SELFPAY ==
--- NOTE | 2024-08-02 09:56 | MHC.OFFVIS ---
Intake Visit Reasons: 6m/PVR Allergies aspirin [From [facility] Aspirin] Allergy (Unknown, Verified 08/02/24 10:38) nose bleeds Medication List - Last Reconciled 08/02/24 by SIMON Conley-SASCHA ascorbic acid (vitamin C) 1 g PO DAILY 90 days cetirizine (All Day Allergy (cetirizine)) 10 mg PO DAILY PRN 90 days cholecalciferol (vitamin D3) 50 mcg PO DAILY 30 days donepezil 5 mg PO BEDTIME fluticasone propionate 50 mcg/actuation (Flonase Allergy Relief) 1 spray intranasal Q12H 30 days melatonin 3 mg PO BEDTIME 30 days memantine 21 mg PO DAILY 30 days methenamine hippurate 1 g PO DAILY 90 days olopatadine 0.2% (Pataday Once Daily Relief) 1 drp ophthalmic (eye) DAILY PRN 30 days quetiapine (Seroquel) 1 tab at 5pm and 1 tab at bedtime. 30 days HPI Comments Details: Connie is a very pleasant 79-year-old Luxembourgish-speaking female patient of Dr. Massey who was accompanied by her DIGITAL LEARNING PLATFORMS MANAGER and daughter at today's office visit. She has a past medical history of cervicalgia, dementia, sleep apnea, arthritis, smoker, and depression. She presents to the office today for follow-up of her recurrent urinary tract infections. She denies having had any bothersome urinary issues or concerns since her last office visit here. She denies having any UTIs and or UTI like symptoms since her last office visit here. Family reports compliance with methenamine and vitamin-C as prescribed. Patient's daughter reports Vagifem and Estrace cream were difficult to apply and adhere to. In office urinalysis results reviewed with the patient today 3+ leukocytes negative nitrates. Given patient's history of dementia she is somewhat a poor historian therefore patient's daughter and DIGITAL LEARNING PLATFORMS MANAGER provide much of today's history. They deny patient to have had any bothersome urinary issues. PVR 0 mL. Discussed at length potential causes for recurrent urinary tract infections. She otherwise offers no other issues or concerns at this time. Plan The current plan emphasizes vigilant monitoring of urinary symptoms to detect any recurrence of UTI swiftly. The patient shall continue with the methenamine and vitamin-C as prescribed. No adjustments to her treatment are necessary at this time due to her asymptomatic presentation. Instructions are given for caregivers to notify promptly of any symptomatic changes. If symptoms develop, a urine sample will be requested for further analysis by the laboratory. Maintaining adequate fluid intake is encouraged to sustain urinary health. Given her stability, a six-month follow-up is advised, barring emergent symptoms. Patient was informed and verbally consented to the use of an ambient scribe for clinic note documentation during this visit. Discussion Notes During the consultation, I discussed with the patient's caregivers the ongoing management of her urinary health, notably focusing on prevention of further urinary tract infections. It was explained that the presence of leukocytes in the absence of nitrites does not necessitate treatment unless accompanied by symptoms, emphasizing the importance of symptom-guided management. The transition to methenamine and vitamin-C from the previously prescribed cream is noted as appropriate and successful, given her current tolerance and lack of symptoms. The need for vigilant observation of potential symptoms was underscored, with clear instructions on when to seek further medical evaluations. Extended plans for follow-up in six months and immediate reporting of symptoms were outlined, ensuring continued care and timely intervention if necessary. [facility] Medical History Screening for osteoporosis Cervicalgia Compression fracture of L1 vertebra Weakness of both lower extremities Dementia Sleep apnea Smoker Arthritis of both hands Depression Surgical History Hx of tubal ligation Family History Mother Bone cancer Daughter Substance abuse Mental health disorder Father Mental health disorder Social History Household Members Other:: lives with daughter- Housing: Apartment Are you a primary assistant child care teacher to a significant other at home: No Do you presently have visiting nurse or other home services: Yes (DIGITAL LEARNING PLATFORMS MANAGER 24/7) Alcohol intake: never Patient Tobacco Use Status: Former Tobacco user Tobacco use type: Cigarette Cigarette Packs Per Day: 3 Cigarettes Per Day: 60.0 Years Smoked: 40+ e-Cigarette/Vaping Use: Never Used Second Hand Smoke Exposure: No service: No Current occupational status: retired Current occupational exposures/hazards: No Cognitive needs: No Hearing needs: No Vision needs: No Review of Systems Const All systems reviewed & are unremarkable except as noted in HPI and below Physical Exam Const General: cooperative, healthy appearing, comfortable, no acute distress, well developed, alert and awake Orientation/consciousness: patient oriented x3 Limitations: no limitations HEENT Head: Yes normal to inspection, Yes normocephalic and Yes atraumatic Ears: hearing grossly normal bilaterally Eyes General: appearance normal, both eyes and all related structures Neck Neck: Yes normal visual inspection and Yes trachea midline Chest Chest palpation & inspection: normal inspection of the chest Resp Effort & Inspection: normal respiratory effort and able to speak in complete sentences Cardio Rate: regular rate GI Inspection: Yes normal to inspection General: Yes no CVA tenderness Back/Spine/Pelvis Back: no CVA tenderness Skin General skin exam: no rashes or lesions noted Neuro General: patient oriented x3 Extrem General: Yes normal to inspection Psych Appearance: grossly normal and well kempt Mental Status: mental status grossly normal Speech and movement: Normal speech and movement present and Clear speech present Affect: normal affect Attitude: cooperative Thought process: Normal thought process present Thought content: Normal thought content present Insight: Limited insight present (Psych) Judgement: Limited judgement present (Psych) Office Procedures Post Void Residual Post Residual Void Post Void Residual (PVR): 0 20762-[id number] Void Residual by ultrasound Results AMB Urinalysis, Automated UA Leukoctes 500 He/uL Last Edit by Lydia Garcia CMA on 08/02/24 10:13 UA Nitrite Negative Last Edit by Lydia Garcia CMA on 08/02/24 10:13 UA Urobilinogen 0.2 mg/dL Last Edit by Lydia Garcia CMA on 08/02/24 10:13 UA Protein 30 mg/dL Last Edit by Lydia Garcia CMA on 08/02/24 10:13 UA pH 6.0 Last Edit by Lydia Garcia CMA on 08/02/24 10:13 UA Blood 10 Will/uL Last Edit by Lydia Garcia CMA on 08/02/24 10:13 UA Specific [place] 1.025 Last Edit by Lydia Garcia CMA on 08/02/24 10:13 UA Ketone Positive Last Edit by Lydia Garcia CMA on 08/02/24 10:13 UA Bilirubin 0 mg/dL Last Edit by Lydia Garcia CMA on 08/02/24 10:13 UA Glucose 0 mg/dL Last Edit by Lydia Garcia CMA on 08/02/24 10:13 Results Reviewed Results Reviewed: Laboratory Last Values Urine pH (Auto) 6.0 08/02/24 10:06 Specific [place] (Auto) 1.025 08/02/24 10:06 Urine Protein (Auto) 30 mg/dL 08/02/24 10:06 Glucose (UA)(Auto) 0 mg/dL 08/02/24 10:06 Urine Ketones (Auto) Positive 08/02/24 10:06 Urine Blood (Auto) 10 Will/uL 08/02/24 10:06 Urine Nitrite (Auto) Negative 08/02/24 10:06 Urine Bilirubin (Auto) 0 mg/dL 08/02/24 10:06 Urine Urobilinogen (Auto) 0.2 mg/dL 08/02/24 10:06 Leukocyte Esterase (Auto) 500 He/uL 08/02/24 10:06 Assessment & Plan Assessment & Plan (1) Frequent UTI: Code(s): N39.0 - Urinary tract infection, site not specified Category: Medical Plan In office urinalysis results reviewed with the patient today and her family today; as noted above. PVR 0 mL. Continue methenamine and vitamin-C as prescribed. Patient currently denies any bothersome urinary issues or concerns. She denies any UTI like symptoms. Will continue with surveillance monitoring. Discussed UTI prevention with D mannose supplement, vitamin-C, increasing fluid intake, behavioral therapy with timed voiding, perineal hygiene, and management of constipation with stool softeners and increased fiber intake. Follow-up in 6 months with PVR; or sooner with any issues, concerns, and or questions. Orders: Orders AMB Urinalysis Automated Today N39.0 - Urinary tract infection, site not specified AMB Post Void Residual by ultrasound Today R35.0 - Frequency of micturition, R35.89 - Other polyuria Medications: Changed From ascorbic acid (vitamin C) 1 g PO Q6H 30 days 120 caps 0RF To ascorbic acid (vitamin C) 1 g PO DAILY 90 days 90 caps 2RF From methenamine hippurate 1 g PO DAILY 30 days 30 tabs 1RF To methenamine hippurate 1 g PO DAILY 90 days 90 tabs 1RF Patient Instructions: The patient had an opportunity to ask questions regarding the treatment plan. All questions were answered. Physical exam, labs, and imaging were discussed and reviewed in detail. As well as risks, benefits, and discussion of treatment choices. No major barriers to understanding were identified. The patient expressed understanding and agreement with the above treatment plan. The patient was made aware they should contact our office by phone for worsening of their current condition, the appearance of new symptoms, or with any questions or concerns. Compliance is encouraged with any medications and follow up testing that is ordered. It is a privilege to be allowed the opportunity to participate in? your urological care.? Again, if you have any questions or concerns If you have any questions or concerns please do not hesitate to contact me. The office is [phone]. This note is constructed using voice recognition software. While every effort has been made to ensure accuracy media aid errors may have been included. Yours sincerely, DAKOTA Conley Coding Level of Care Code Est Pt Level 3 (32255) Complex EM visit Add On G2211 Diagnoses Frequent UTI N39.0 CPT Codes Post Residual Void - PVR CPT Code: 23348-Tlpt Void Residual by ultrasound ([id number])
== END 2024-08-02 10:33 | disposition home or self-care (01) ==
LOC: HO.HUSH 09:46
PROVIDERS: PCP Family Medicine; Visit Provider Nurse Practitioner Family
DX: N39.0 Urinary tract infection, site not specified (principal)
CPT/HCPCS: 99213; G2211

== ENCOUNTER → 2024-08-02 09:45 | Outpatient (BNVA) | payer MEDICARE, MEDICAID, SELFPAY | PROVIDERS: PCP Family Medicine; Visit Provider Nurse Practitioner Family | DX: N39.0 Urinary tract infection, site not specified (principal); R35.0 Frequency of micturition; R35.89 Other polyuria; Z79.899 Other long term (current) drug therapy | CPT/HCPCS: 51798; 81003; 99212 ==

== ENCOUNTER 2024-11-03 09:41 | Outpatient (REF) | payer MEDICARE, MEDICAID, SELFPAY ==
[2024-11-03 11:27] LABS: Appearance Urine Clear; Glucose Urine UA Negative (Negative); PH 6.5 (5.0-9.0); Specific Gravity - Urine 1.015 (1.005-1.025); UMIC TRIGGER UA YES
[2024-11-03 11:54] LABS: Alanine Aminotransferase 15 U/L (0-31); Albumin Level 4.0 g/dL (3.5-5.0); Alkaline Phosphatase 107 U/L (39-117); Anion Gap 11 (12-20); Aspartate Amino Transferase 27 U/L (5-31); Blood Urea Nitrogen 8 mg/dL (9-16); Calcium 8.9 mg/dL (8.4-10.2); Carbon Dioxide 26 mmol/L (22-29); Chloride 103 mmol/L (96-108); Cholesterol 158 mg/dL (<200); Estimated Glomerular Filt Rate > 60; HDL Cholesterol 54 mg/dL (>40); Potassium 4.0 mmol/L (3.3-5.1); Sodium 136 mmol/L (135-145); Total Protein 6.8 g/dL (6.5-8.0); Triglycerides 115 mg/dL (<150)
== END 2024-11-03 09:42 | disposition home or self-care (01) ==
LOC: HO.WFDLDS 09:41
PROVIDERS: Visit Provider Family Medicine
DX: I10 Essential (primary) hypertension (principal); N39.0 Urinary tract infection, site not specified; F03.90 Unspecified dementia, unspecified severity, without behavioral disturbance, psychotic disturbance, mood disturbance, and anxiety; Z00.00 Encounter for general adult medical examination without abnormal findings
CPT/HCPCS: 36415; 80053; 80061; 81001; 99212

== ENCOUNTER 2024-11-03 16:16 | Outpatient (AMB) | payer MEDICARE, MEDICAID, SELFPAY ==
--- NOTE | 2024-11-03 16:18 | MHC.PC.OV ---
Vital Signs 11/03/24 16:24 11/03/24 17:01 11/03/24 17:24 Height 5 ft 2 in Weight 120 lb 2 oz BMI 22.0 BP 202/85 H 206/86 H 186/86 H Blood Pressure Location Lt brachial Lt brachial Position Sitting Sitting Respiration 16 Pulse 86 65 Pulse Source Pulse Oximeter Pulse Oximeter Temp 98.5 F Temp Source Oral Pulse Oximetry (%) 97 Oxygen Delivery Method Room Air Intake Visit Reasons: f/u chronic conditions Intake Note: patient here for follow up on chronic conditions Oven Operator Required: No Accompanied by: Daughter Is last menstrual period known: No Post menopausal: No Patient : No Allergies aspirin (From [facility]Ds[facility] Aspirin) Allergy (Unknown, Verified 11/03/24 16:22) nose bleeds Medication List - Last Reconciled 11/03/24 by Chente Massey MD ascorbic acid (vitamin C) 1 g PO DAILY 90 days cetirizine (All Day Allergy (cetirizine)) 10 mg PO DAILY PRN 90 days cholecalciferol (vitamin D3) 50 mcg PO DAILY 30 days donepezil 5 mg PO BEDTIME fluticasone propionate 50 mcg/actuation (Flonase Allergy Relief) 1 spray intranasal Q12H 30 days melatonin 3 mg PO BEDTIME 30 days memantine 21 mg PO DAILY 30 days methenamine hippurate 1 g PO DAILY 90 days olopatadine 0.2% (Pataday Once Daily Relief) 1 drp ophthalmic (eye) DAILY PRN 30 days quetiapine (Seroquel) 1 tab at 5pm and 1 tab at bedtime. 30 days Tobacco use date assessed: 11/03/24 Fall risk assessment: No Falls in past year Last assessed Fall Risk: 11/03/24 Dental Screening Dental Screen Date: 11/03/24 Did you have a dental visit in the last 12 months?: No Did you have a dental problem in the last 6 months where you did not have access to dental care?: No Was dental information given to patient?: Patient declined (dentures) HPI f/u chronic conditions HPI Details 79 y/o female presents to f/u chronic conditions. Blood pressure today 202/85, 86p. They note she feels okay today but do note she always feels anxious. Denies headaches, vision changes. They are able to check blood pressures at home but they have not been checking numbers recently. Labs drawn 11/03/24. Reviewed labs with pt. Triglycerides 115. TC 158. LDL 81. HDL 54. They note mammogram, bone density test scheduled in November. They note frequent UTI has improved. HPI Comments History of Present Illness Details Documentation assistance for Chente Massey MD, was provided by Moisés Baltazar,? Sneller Hand on 11/03/2024 at 5:07 PM EST. I, Dr. Massey, have read, observed, and verified documentation. [facility] Medical History Screening for osteoporosis Cervicalgia Compression fracture of L1 vertebra Weakness of both lower extremities Dementia Sleep apnea Smoker Arthritis of both hands Depression Surgical History Hx of tubal ligation Family History Mother Bone cancer Daughter Substance abuse Mental health disorder Father Mental health disorder Social History Household Members Other:: lives with daughter- Housing: Apartment Are you a primary personal care aid to a significant other at home: No Do you presently have visiting nurse or other home services: Yes (PRODUCTION OPERATIONS INSPECTOR 24/) Alcohol intake: never Patient Tobacco Use Status: Former Tobacco user Tobacco use type: Cigarette Cigarette Packs Per Day: 3 Cigarettes Per Day: 60.0 Years Smoked: 40+ e-Cigarette/Vaping Use: Never Used Second Hand Smoke Exposure: No service: No Current occupational status: retired Current occupational exposures/hazards: No Cognitive needs: No Hearing needs: No Vision needs: No Questionnaire PHQ-9 Over the last 2 weeks, how often have you been bothered by any of the following problems? 1. Little interest or pleasure in doing things: more than half the days 2. Feeling down, depressed, or hopeless: more than half the days 3. Trouble falling or staying asleep, or sleeping too much: nearly every day 4. Feeling tired or having little energy: several days 5. Poor appetite or overeating: several days 6. Feeling bad about yourself - or that you are a failure or have let yourself or your family down: not at all 7. Trouble concentrating on things, such as reading the newspaper or watching television: several days 8. Moving or speaking so slowly that other people could have noticed. Or the opposite - being so fidgety or restless that you have been moving around a lot more than usual: several days 9. Thoughts that you would be better off or of hurting yourself in some way: several days Total score: 12 Source: Developed by Drs. Ricky Quintana, Jessica Norman, Michel Sanchez and colleagues, with an educational amita from [employer]. Thrive Questionnaire Date Thrive assessed: 07/07/24 I am a: Patient What is your living situation today?: I have a steady place to live Within the past 12 months, did the food you bought not last and you didn't have the money to get more?: I choose not to answer this question Within the past 12 months, did you worry whether your food would run out before you got money to buy more?: Never true Do you have trouble paying for medicines?: No Do you have trouble getting transportation to medical appointments?: No Do you have trouble paying your heating and electricity bill?: No Do you have trouble taking care of your child, family member or friend?: I choose not to answer this question Do you have trouble with day-to-day activities such as bathing, preparing meals, shopping, managing finances, etc.?: Yes Are you currently unemployed and looking for a job?: No Are you interested in more education?: No Please select the resources that you would like help with: None Currently or been in a relationship where the following occur: No concerns reported THRIVE Score: 0 AUDIT C Alcohol Use Questionnaire (AUDIT-C) 1. How often do you have a drink containing alcohol?: Never Total Score: 0 JONATHAN-7 AMB Questionnaire JONATHAN-7 Date JONATHAN - 7 assessed: 07/07/24 Feeling nervous, anxious, or on edge: 2 = More than half the days Not being able to stop or control worryin = More than half the days Worrying too much about different things: 2 = More than half the days Trouble relaxin = More than half the days Being so restless that it is hard to sit still: 2 = More than half the days Becoming easily annoyed or irritable: 2 = More than half the days Feeling afraid as if something awful might happen: 2 = More than half the days Total JONATHAN-7 score (0-4 normal; 5-9 mild; 10-14 moderate; 15-21 severe): 14 Source: Developed by Drs. Ricky Quintana, Jessica Norman, Michel Sanchez and colleagues, with an educational amita from [employer]. Review of Systems Const Denies chills, Denies fatigue, Denies fever(s), Denies headache(s) and Denies weakness ENT Denies dizziness and Denies headache(s) Card Denies chest pain, Denies lightheadedness, Denies dyspnea and Denies other (Palpitations) Resp Denies cough, Denies dyspnea, Denies wheezing and Denies other ( shortness of breath) Musc Denies numbness and Denies tingling Neuro Denies dizziness, Denies headache(s), Denies numbness, Denies tingling, Denies paresthesias and Denies weakness Psych Denies anxiety and Denies depression Endo Denies fatigue Aller/Immun Denies wheezing Physical exam (Primary Care) Vital Signs: Last Vital Signs Temp 98.5 F 11/03/24 16:24 Pulse 86 11/03/24 16:24 Resp 16 11/03/24 16:24 BP 206/86 H 11/03/24 17:01 Pulse Ox 97 11/03/24 16:24 Oxygen Delivery Method Room Air 11/03/24 16:24 BMI result Body Mass Index 22.0 Tobacco/Smoking Status: Tobacco use Status Tobacco use date assessed 11/03/24 11/03/24 16:28 Patient Tobacco Use Status Former Tobacco user 11/03/24 16:21 Tobacco use type Cigarette 11/03/24 16:21 e-Cigarette/Vaping Use Never Used 11/03/24 16:21 PHQ-9: PHQ-9 Score PHQ-9: Total score 12 11/03/24 17:08 Thrive Assessment: Date of Thrive Assessment Date Thrive assessed 07/07/24 11/03/24 16:21 Currently or been in a relationship where the following occur: No concerns reported Const General: no acute distress and well developed Nutritional Appearance: well nourished Orientation/consciousness: patient oriented x3 HENMT Head: Yes normocephalic and Yes atraumatic Eyes General: appearance normal, both eyes and all related structures Pupils: Equal, round and reactive pupils present EOM: EOMs intact bilaterally Resp Effort & Inspection: normal respiratory effort Auscultation: clear to auscultation bilaterally Cardio Rate: regular rate Rhythm: regular rhythm Heart sounds: S1 normal heart sound present, S2 normal heart sound present, no gallops, no murmurs and no rubs Neuro General: patient oriented x3 and gait normal Cranial nerves: Yes Equal, round and reactive pupils present Psych Affect: normal affect Coding Level of Care Code Est Pt Level 4 (03219) Diagnoses Dementia F03.90 Hypertension I10 Frequent UTI N39.0 Assessment & Plan Assessment & Plan (1) Dementia: Comment: Advanced. Code(s): F03.90 - Unspecified dementia, unspecified severity, without behavioral disturbance, psychotic disturbance, mood disturbance, and anxiety Category: Medical Plan: Stable (2) Hypertension: Code(s): I10 - Essential (primary) hypertension Category: Medical Plan: Blood pressure is significantly elevated. She has no symptoms of end-organ damage such as headache, change in her mental status, vision changes or other complaints. Patient feels well. After administration of clonidine 0.1 mg PO x 1, BP: 186/86, improving. Patient remains asymptomatic. Feels well. Start Amlodipine at home Patient has blood pressure monitor at home and her daughter will check this Call if blood pressures are not well controlled. Goal is less than 140/90 (3) Frequent UTI: Code(s): N39.0 - Urinary tract infection, site not specified Category: Medical Plan: Patient was started on methenamine by Urology. Asymptomatic Continue medication and follow-up with urology as recommended Medications: New amlodipine 5 mg PO DAILY 30 tabs 3RF 30 days
[2024-11-03 16:24] VITALS: BP 202/85; PULSE 86; RESP 16; TEMP 36.9; O2SAT 97; BMI 22.0
[2024-11-03 17:01] VITALS: BP 206/86
[2024-11-03 17:24] VITALS: BP 186/86; PULSE 65
== END 2024-11-03 17:05 | disposition home or self-care (01) ==
LOC: HO.HMCFM 16:17
PROVIDERS: PCP Family Medicine; Visit Provider Family Medicine
DX: F03.90 Unspecified dementia, unspecified severity, without behavioral disturbance, psychotic disturbance, mood disturbance, and anxiety (principal); I10 Essential (primary) hypertension; N39.0 Urinary tract infection, site not specified

== ENCOUNTER 2024-12-13 12:50 | Outpatient (AMB) | payer MEDICARE, MEDICAID, SELFPAY ==
--- NOTE | 2024-12-13 12:58 | A.OFFPC_ITS ---
Vital Signs 12/13/24 13:03 Height 5 ft 2 in Weight 122 lb 2 oz BMI 22.3 BP 132/76 Blood Pressure Location Lt brachial Position Sitting Respiration 12 Pulse 76 Pulse Source Pulse Oximeter Temp 97.1 F Temp Source Oral Pulse Oximetry (%) 98 Oxygen Delivery Method Room Air Intake Visit Reasons: 1 month htn, resched Intake Note: 1 Month follow up. Patient has question regarding bp meds Storage Management Architect Required: No Allergies aspirin (From Debitos Aspirin) Allergy (Unknown, Verified 12/13/24 13:30) nose bleeds Medication List - Last Reconciled 12/13/24 by Dinah Brambila, SOFTWARE SPECIALIST- amlodipine 5 mg PO DAILY 30 days ascorbic acid (vitamin C) 1 g PO DAILY 90 days cetirizine (All Day Allergy (cetirizine)) 10 mg PO DAILY PRN 90 days cholecalciferol (vitamin D3) 50 mcg PO DAILY 30 days clonidine HCl 0.05 mg (1/2 x 0.1 mg) PO BID 90 days donepezil 5 mg PO BEDTIME fluticasone propionate 50 mcg/actuation (Flonase Allergy Relief) 1 spray intranasal Q12H 30 days melatonin 3 mg PO BEDTIME 30 days memantine 21 mg PO DAILY 30 days methenamine hippurate 1 g PO DAILY 90 days olopatadine 0.2% (Pataday Once Daily Relief) 1 drp ophthalmic (eye) DAILY PRN 30 days quetiapine (Seroquel) 1 tab at 5pm and 1 tab at bedtime. 30 days Tobacco use date assessed: 12/13/24 Fall risk assessment: No Falls in past year Last assessed Fall Risk: 12/13/24 Dental Screening Dental Screen Date: 12/13/24 Did you have a dental visit in the last 12 months?: Yes Did you have a dental problem in the last 6 months where you did not have access to dental care?: No Was dental information given to patient?: Patient has dentist HPI HPI Comments History of Present Illness Details History of Present Illness - The patient is a 79-year-old female pr esenting with hypertension and dementia-related behavioral changes. - Hypertension: Managed with amlodipine 5 mg daily; occasional high readings up to 183 systolic. Clonidine is used for systolic >160 only. - Dementia: Episodes of agitation and ag gression occur, related to environmental triggers mostly. Does have a hx of frequent UTI. On Methenamine by Uro - Current medications: amlodipine, cloni dine, and as-needed quetiapine. Review of Systems - Cardiovascular: Reports blood pressure improvement with current medication; occasional high readings. - Neurological: Reports changes related to dementia, including episodes of aggression and agitation. - General: Denies other new symptoms. Physical Exam General: Well developed, well nourished, in no acute distress.Accompanie by Dtr Jelly and INTERNAL MEDICINE PHYSICIAN Josie Head: Normocephalic, atraumatic. Eyes: Pupils are equal, round and reactive to light and accommodation. Conjunctivae are clear. Lungs: Clear to auscultation bilaterally. No rales, rhonchi or wheeze noted. Good air flow in all zheng. Heart: Regular rate and rhythm. No murmurs, click, rubs or gallops are noted. Abdomen: No CVAT or suprapubic tenderness Psych: Mood and affect appropriate, Results UA ordered and pending Discussion Notes During the visit, we discussed managing the patient's hypertension with a continued regimen of amlodipine daily and using clonidine only when systolic blood pressure exceeds 160. I addressed the behavioral changes associated with dementia, acknowledging peaks of aggression and considering the possibility of a urinary infection as a trigger. We ordered a urine test to investigate this. We discussed continuing quetiapine as needed for episodes of agitation. I emphasized the importance of routine checks and scenarios that warrant elevated concern, such as significant changes in blood pressure or behavior. Discharge instructions included the medication regimen and follow-up plans. Patient was given time to ask questions. All questions were answered to their satisfaction. Assessment and Plan 1. Essential Hypertension - Continue amlodipine daily - Clonidine PRN for BP >160 - Monitor BP regularly 2. Dementia - Monitor behavior - Use quetiapine PRN - Investigate urinary infection with uri ne test RTO for routine fu with PCP Patient Instructions - Take amlodipine every day, even if blo od pressure is normal. - Use clonidine only if the top blood pr essure number is more than 160. - Monitor blood pressure regularly and r ecord readings. - Report any new aggression or changes i n behavior. - Visit the lab for a urine test as dire cted. - Use quetiapine as needed for agitation . Consent Patient was informed and verbally consented to the use of an ambient scribe for clinic note documentation during this visit. Total time spent caring for the patient today was 30 minutes. This includes time spent before the visit reviewing the chart, time spent during the visit, and time spent after the visit on documentation, reviewing laboratory results, diagnostic imaging, medications, performing a medically necessary evaluation, counseling on diagnoses, care coordination, ordering appropriate tests, ordering appropriate medications, review of tests performed by other providers, reporting test results with the patient, communication with other healthcare providers. [facility] Medical History Screening for osteoporosis Cervicalgia Compression fracture of L1 vertebra Weakness of both lower extremities Dementia Sleep apnea Smoker Arthritis of both hands Depression Surgical History Hx of tubal ligation Family History Mother Bone cancer Daughter Substance abuse Mental health disorder Father Mental health disorder Social History Household Members Other:: lives with daughter- Housing: Apartment Are you a primary healthcare financial analyst to a significant other at home: No Do you presently have visiting nurse or other home services: Yes (INTERNAL MEDICINE PHYSICIAN 24/7) Alcohol intake: never Patient Tobacco Use Status: Former Tobacco user Tobacco use type: Cigarette Cigarette Packs Per Day: 3 Cigarettes Per Day: 60.0 Years Smoked: 40+ e-Cigarette/Vaping Use: Never Used Second Hand Smoke Exposure: No service: No Current occupational status: retired Current occupational exposures/hazards: No Cognitive needs: No Hearing needs: No Vision needs: No Questionnaire PHQ-9 Over the last 2 weeks, how often have you been bothered by any of the following problems? 1. Little interest or pleasure in doing things: not at all 2. Feeling down, depressed, or hopeless: not at all 3. Trouble falling or staying asleep, or sleeping too much: not at all 4. Feeling tired or having little energy: not at all 5. Poor appetite or overeating: not at all 6. Feeling bad about yourself - or that you are a failure or have let yourself or your family down: not at all 7. Trouble concentrating on things, such as reading the newspaper or watching television: not at all 8. Moving or speaking so slowly that other people could have noticed. Or the opposite - being so fidgety or restless that you have been moving around a lot more than usual: not at all 9. Thoughts that you would be better off or of hurting yourself in some way: not at all Total score: 0 Depression Screening Interpretation: Negative Depression Screening Done: Yes 37802 - PHQ-9 Billing: Yes Source: Developed by Drs. Ricky Quintana, Jessica Norman, Michel Sanchez and colleagues, with an educational amita from [employer]. Thrive Questionnaire Date Thrive assessed: 12/13/24 I am a: Patient What is your living situation today?: I have a steady place to live Within the past 12 months, did the food you bought not last and you didn't have the money to get more?: I choose not to answer this question Within the past 12 months, did you worry whether your food would run out before you got money to buy more?: Never true Do you have trouble paying for medicines?: No Do you have trouble getting transportation to medical appointments?: No Do you have trouble paying your heating and electricity bill?: No Do you have trouble taking care of your child, family member or friend?: I choose not to answer this question Do you have trouble with day-to-day activities such as bathing, preparing meals, shopping, managing finances, etc.?: Yes Are you currently unemployed and looking for a job?: No Are you interested in more education?: No Please select the resources that you would like help with: None Currently or been in a relationship where the following occur: No concerns reported THRIVE Score: 0 AUDIT C Alcohol Use Questionnaire (AUDIT-C) 1. How often do you have a drink containing alcohol?: Never 3. How often do you have six or more drinks on one occasion?: Never Total Score: 0 Score Reviewed/Action Taken: Yes JONATHAN-7 AMB Questionnaire JONATHAN-7 Date JONATHAN - 7 assessed: 12/13/24 Feeling nervous, anxious, or on edge: 0 = Not at all Not being able to stop or control worryin = Not at all Worrying too much about different things: 0 = Not at all Trouble relaxin = Not at all Being so restless that it is hard to sit still: 0 = Not at all Becoming easily annoyed or irritable: 0 = Not at all Feeling afraid as if something awful might happen: 0 = Not at all Total JONATHAN-7 score (0-4 normal; 5-9 mild; 10-14 moderate; 15-21 severe): 0 Source: Developed by Drs. Ricky Quintana, Jessica Norman, Michel Sanchez and colleagues, with an educational amita from [employer]. JONATHAN-7 Assessment Billing JONATHAN-7 Assessment Tool: JONATHAN-7 Assessment [id number] Physical exam (Primary Care) Vital Signs: Last Vital Signs Temp 97.1 F 12/13/24 13:03 Pulse 76 12/13/24 13:03 Resp 12 12/13/24 13:03 BP 132/76 12/13/24 13:03 Pulse Ox 98 12/13/24 13:03 Oxygen Delivery Method Room Air 12/13/24 13:03 BMI result Body Mass Index 22.3 Tobacco/Smoking Status: Tobacco use Status Tobacco use date assessed 12/13/24 12/13/24 13:02 Patient Tobacco Use Status Former Tobacco user 12/13/24 13:00 Tobacco use type Cigarette 12/13/24 13:00 e-Cigarette/Vaping Use Never Used 12/13/24 13:00 PHQ-9: PHQ-9 Score PHQ-9: Total score 0 12/13/24 13:00 Depression Screening Interpretation: Negative Thrive Assessment: Date of Thrive Assessment Date Thrive assessed 12/13/24 12/13/24 13:00 Currently or been in a relationship where the following occur: No concerns reported Coding Level of Care Code Est Pt Level 4 (73892) Complex EM visit Add On G2211 Diagnoses Primary hypertension I10 Hypertension type: primary hypertension Frequent UTI N39.0 Dementia F03.90 Dementia type: unspecified type Additional Codes JONATHAN-7 Assessment Billing - JONATHAN-7 Assessment Tool: JONATHAN-7 Assessment 09518 ([id number]) PHQ-9 - 80918 - PHQ-9 Billing: Yes ([id number]) Assessment & Plan Assessment & Plan (1) Hypertension: Code(s): I10 - Essential (primary) hypertension Category: Medical Qualifiers: Hypertension type: primary hypertension Qualified Code(s): I10 - Essential (primary) hypertension (2) Frequent UTI: Code(s): N39.0 - Urinary tract infection, site not specified Category: Medical (3) Dementia: Comment: Advanced. Code(s): F03.90 - Unspecified dementia, unspecified severity, without behavioral disturbance, psychotic disturbance, mood disturbance, and anxiety Category: Medical Qualifiers: Dementia type: unspecified type Plan . Orders: Orders UA CC w/rflx Micro + Cult Today R30.0 - Dysuria
[2024-12-13 13:03] VITALS: BP 132/76; PULSE 76; RESP 12; TEMP 36.2; O2SAT 98; BMI 22.3
== END 2024-12-13 13:40 | disposition home or self-care (01) ==
LOC: HO.HMCFM 12:51
PROVIDERS: PCP Family Medicine; Visit Provider Nurse Practitioner Family
DX: I10 Essential (primary) hypertension (principal); N39.0 Urinary tract infection, site not specified; F03.90 Unspecified dementia, unspecified severity, without behavioral disturbance, psychotic disturbance, mood disturbance, and anxiety

== ENCOUNTER 2024-12-13 12:50 | Outpatient (REF) | payer MEDICARE, MEDICAID, SELFPAY ==
[2024-12-13 18:22] LABS: Appearance Urine Clear; Glucose Urine UA Negative (Negative); PH 7.0 (5.0-9.0); Specific Gravity - Urine 1.025 (1.005-1.025); UMIC TRIGGER UACC YES
[2024-12-13 18:34] LABS: UACC Culture Trigger YES
== END 2024-12-13 12:51 | disposition home or self-care (01) ==
LOC: HO.WFDLDS 12:50
PROVIDERS: PCP Family Medicine; Visit Provider Nurse Practitioner Family
DX: I10 Essential (primary) hypertension (principal); N39.0 Urinary tract infection, site not specified; F03.90 Unspecified dementia, unspecified severity, without behavioral disturbance, psychotic disturbance, mood disturbance, and anxiety; Z87.891 Personal history of nicotine dependence
CPT/HCPCS: 81001; 87086; 96127; 99212

== ENCOUNTER 2024-12-14 14:36 | Outpatient (AMB) | payer MEDICARE, MEDICAID, SELFPAY ==
[2024-12-14 14:38] VITALS: BP 138/78; PULSE 72; O2SAT 97; BMI 22.7
--- NOTE | 2024-12-14 14:38 | A.OFFVIS_ITS ---
Vital Signs 12/14/24 14:38 Height 5 ft 2 in Weight 124 lb 4 oz BMI 22.7 BP 138/78 Blood Pressure Location Rt brachial Position Sitting Pulse 72 Pulse Source Pulse Oximeter Pulse Oximetry (%) 97 Oxygen Delivery Method Room Air Intake Visit Reasons: follow up Intake Note: Patient presents follow up for dementia. Home Office Claim Specialist Required: No Accompanied by: Daughter, FOLDED TOWEL MACHINE OPERATOR Allergies aspirin (From Paige Aspirin) Allergy (Unknown, Verified 12/14/24 14:42) nose bleeds Medication List - Last Reconciled 12/19/24 by SIMON Arroyo amlodipine 5 mg PO DAILY 30 days ascorbic acid (vitamin C) 1 g PO DAILY 90 days cetirizine (All Day Allergy (cetirizine)) 10 mg PO DAILY PRN 90 days cholecalciferol (vitamin D3) 50 mcg PO DAILY 30 days clonidine HCl 0.05 mg (1/2 x 0.1 mg) PO BID 90 days donepezil 5 mg PO BEDTIME fluticasone propionate 50 mcg/actuation (Flonase Allergy Relief) 1 spray intranasal Q12H 30 days melatonin 3 mg PO BEDTIME 30 days memantine 21 mg PO DAILY 30 days methenamine hippurate 1 g PO DAILY 90 days olopatadine 0.2% (Pataday Once Daily Relief) 1 drp ophthalmic (eye) DAILY PRN 30 days quetiapine (Seroquel) 1 tab at 5pm and 1 tab at bedtime. 30 days Do you need a note to return to daycare/school/sports/work: No HPI Comments Details: 79-yr-old female presents for f/u visit. Pt accompanied by her dtr, Jelly, and her FOLDED TOWEL MACHINE OPERATOR. Daughter reports that patient has been doing overall okay, however she has recently been more agitated. They reached out to PCP office, and UA was obtained, C&S pending. Pt has continued to tolerate Namenda ER 21 mg daily and donepezil 5 mg daily. * Namenda ER 28 mg caused agitation * Donepezil 10 mg daily cause combativeness She continues to be forgetful, some days better than others. She may not always remember her PCPs name. Requires cuing an assist for ADLs. She has 24/7 support. She is eating ok, sometimes less- but this is typical for her. Pt denies any pain. She still likes to play dominoes, however she is not doing her word searches much. She does not exercise much- family tries to encourage her to move. Has a bike, which she does not use. * Daughter is considering purchasing a foot peddler. She continues on quetiapine for sleep and mood. Laboratory Tests 09/20/23 07/05/24 10:55 14:59 Vitamin B12 311 Methylmalonic Acid 277 25-OH Vitamin D Total 41.5 Folate 8.6 Homocysteine 12.4 H [facility] Medical History Screening for osteoporosis Cervicalgia Compression fracture of L1 vertebra Weakness of both lower extremities Dementia Sleep apnea Smoker Arthritis of both hands Depression Surgical History Hx of tubal ligation Family History Mother Bone cancer Daughter Substance abuse Mental health disorder Father Mental health disorder Social History Household Members Other:: lives with daughter- Housing: Apartment Are you a primary careers counsellor to a significant other at home: No Do you presently have visiting nurse or other home services: Yes (FOLDED TOWEL MACHINE OPERATOR 18/11) Alcohol intake: never Patient Tobacco Use Status: Former Tobacco user Tobacco use type: Cigarette Cigarette Packs Per Day: 3 Cigarettes Per Day: 60.0 Years Smoked: 40+ e-Cigarette/Vaping Use: Never Used Second Hand Smoke Exposure: No service: No Current occupational status: retired Current occupational exposures/hazards: No Cognitive needs: No Hearing needs: No Vision needs: No Physical Exam Vital Signs: Last Vital Signs Pulse 72 12/14/24 14:38 BP 138/78 12/14/24 14:38 Pulse Ox 97 12/14/24 14:38 Oxygen Delivery Method Room Air 12/14/24 14:38 BMI result Body Mass Index 22.7 Const General: cooperative and no acute distress HEENT Head: Yes normocephalic Resp Effort & Inspection: normal respiratory effort and able to speak in complete sentences Neuro Other: Pt is alert to person- can correctly state her daughter's name, can state her parts counter representative name with prompting. Unable to state date, month, year, season, location, or that we are in a medical clinic for her own medical appointment. Responds appropriately w/ STM lapses General: gait normal and moves all extremities Cognition (Neuro): abnormal cognition Psych Appearance: grossly normal Speech and movement: Normal speech and movement present Affect: normal affect Attitude: cooperative Assessment & Plan Assessment & Plan (1) Dementia: Comment: Advanced. Code(s): F03.90 - Unspecified dementia, unspecified severity, without behavioral dis turbance, psychotic disturbance, mood disturbance, and anxiety Category: Medical Qualifiers: Dementia type: unspecified type Dementia severity: severe Dementia behavioral or psychological symptom: with mood disturbance Qualified Code(s): F03.C3 - Unspecified dementia, severe, with mood disturbance (2) Insomnia: Code(s): G47.00 - Insomnia, unspecified Category: Medical Qualifiers: Insomnia type: due to medical condition Qualified Code(s): G47.01 - Insomnia due to medical condition (3) Low vitamin D level: Code(s): R79.89 - Other specified abnormal findings of blood chemistry Category: Medical Plan Advised to follow up with her PCP when UA C&S results are available. ?Reviewed symptoms of UTI to monitor for, as the patient may not be able to clearly verbalize more subtle symptoms. Labs reviewed- Recheck Vit D-,B12, B1, B6, homocysteine and mma levels- w/ next routine labs. Continue Memantine ER 21mg qd. Continue Donepazil 5mg qd.- Continue Quetiapine 25mg BID- at 5pm and qhs. Pervious trials- Memantine ER 28mg and Donepazil 10mg- not tolerated, caused agitation. Continue 24/ supervision. Continue encouraging pt to engage in cognitive and socially stimulating activities- dominos, puzzles, word finding puzzles. Continue encouraging physical activity as tolerated- walking, try a foot peddler f/u upon review of above and in-clinic in 6 months or sooner prn. Orders: Orders Vitamin B12 and Folate Today D64.9 - Anemia, unspecified, R79.89 - Other specified abnormal findings of blood chemistry Homocysteine Today D64.9 - Anemia, unspecified, R79.89 - Other specified abnormal findings of blood chemistry Methylmalonic Acid Today D64.9 - Anemia, unspecified, R79.89 - Other specified abnormal findings of blood chemistry Complete Blood Count Auto Diff Today D64.9 - Anemia, unspecified, R79.89 - Other specified abnormal findings of blood chemistry Vitamin B6 Today D64.9 - Anemia, unspecified, R79.89 - Other specified abnormal findings of blood chemistry Comprehensive [place]. Panel Fast Today D64.9 - Anemia, unspecified, R79.89 - Other specified abnormal findings of blood chemistry Vitamin B1 Today D64.9 - Anemia, unspecified, E51.9 - Thiamine deficiency, unspecified, R79.89 - Other specified abnormal findings of blood chemistry Coding Level of Care Code Est Pt Level 4 (62324) Diagnoses Severe dementia with mood disturbance, unspecified dementia type F03.C3 Dementia type: unspecified type Dementia severity: severe Dementia behavioral or psychological symptom: with mood disturbance Insomnia due to medical condition G47.01 Insomnia type: due to medical condition Low vitamin D level R79.89
== END 2024-12-14 15:21 | disposition home or self-care (01) ==
LOC: HO.HSMS 14:37
PROVIDERS: PCP Family Medicine; Visit Provider Nurse Practitioner Family
DX: F03.C3 Unspecified dementia, severe, with mood disturbance (principal); G47.01 Insomnia due to medical condition; R79.89 Other specified abnormal findings of blood chemistry
CPT/HCPCS: 99214

== ENCOUNTER → 2024-12-14 14:36 | Outpatient (BNVA) | payer MEDICARE, MEDICAID, SELFPAY | PROVIDERS: PCP Family Medicine; Visit Provider Nurse Practitioner Family | DX: G47.01 Insomnia due to medical condition (principal); F03.C3 Unspecified dementia, severe, with mood disturbance; R79.89 Other specified abnormal findings of blood chemistry | CPT/HCPCS: 99212 ==

== ENCOUNTER 2024-12-29 14:34 | Outpatient (AMB) | payer MEDICARE, MEDICAID, SELFPAY ==
--- NOTE | 2024-12-29 14:37 | MHC.PC.OV ---
Vital Signs 12/29/24 14:45 Height 5 ft 2 in Weight 120 lb 8 oz BMI 22.0 BP 122/68 Blood Pressure Location Rt brachial Position Sitting Respiration 12 Pulse 71 Pulse Source Pulse Oximeter Temp 97.7 F Temp Source Temporal Artery Scan Pulse Oximetry (%) 97 Oxygen Delivery Method Room Air Intake Visit Reasons: 1 month htn Intake Note: Connie presents in the office today for a one month follow for hypertension. Allergies aspirin (From [employer] Aspirin) Allergy (Unknown, Verified 12/29/24 14:41) nose bleeds Medication List - Last Reconciled 12/29/24 by Chente Massey MD amlodipine 5 mg PO DAILY 30 days ascorbic acid (vitamin C) 1 g PO DAILY 90 days cetirizine (All Day Allergy (cetirizine)) 10 mg PO DAILY PRN 90 days cholecalciferol (vitamin D3) 50 mcg PO DAILY 30 days clonidine HCl 0.05 mg (1/2 x 0.1 mg) PO BID 90 days donepezil 5 mg PO BEDTIME fluticasone propionate 50 mcg/actuation (Flonase Allergy Relief) 1 spray intranasal Q12H 30 days melatonin 3 mg PO BEDTIME 30 days methenamine hippurate 1 g PO DAILY 90 days olopatadine 0.2% (Pataday Once Daily Relief) 1 drp ophthalmic (eye) DAILY PRN 30 days quetiapine (Seroquel) 1 tab at 5pm and 1 tab at bedtime. 50mg QD Tobacco use date assessed: 12/29/24 Dental Screening Dental Screen Date: 12/29/24 Did you have a dental visit in the last 12 months?: No Did you have a dental problem in the last 6 months where you did not have access to dental care?: No Was dental information given to patient?: Patient declined HPI 1 month htn HPI Details 79 y/o female presents to f/u HTN. Blood pressure today 122/68, 71p. She is prescribed amlodipine 5mg, clonidine but has not been taking clonidine. They note she continues taking her quetiapine. [facility] Medical History (Updated 12/19/24 @ 18:47 by SIMON Arroyo) Elevated homocysteine Anemia Screening for osteoporosis Cervicalgia Compression fracture of L1 vertebra Weakness of both lower extremities Dementia Sleep apnea Smoker Arthritis of both hands Depression Surgical History Hx of tubal ligation Family History Mother Bone cancer Daughter Substance abuse Mental health disorder Father Mental health disorder Social History (Updated 12/29/24 @ 14:44 by Petty Archuleta MA) Household Members Other:: lives with daughter- Housing: Apartment Are you a primary live in caregiver to a significant other at home: No Do you presently have visiting nurse or other home services: Yes ([employer]/) Alcohol intake: never Patient Tobacco Use Status: Former Tobacco user Tobacco use type: Cigarette Cigarette Packs Per Day: 3 Cigarettes Per Day: 60.0 Years Smoked: 40+ e-Cigarette/Vaping Use: Never Used Second Hand Smoke Exposure: No service: No Current occupational status: retired Current occupational exposures/hazards: No Cognitive needs: No Hearing needs: No Vision needs: No Questionnaire Thrive Questionnaire Date Thrive assessed: 11/03/24 I am a: Patient What is your living situation today?: I have a steady place to live Within the past 12 months, did the food you bought not last and you didn't have the money to get more?: I choose not to answer this question Within the past 12 months, did you worry whether your food would run out before you got money to buy more?: Never true Do you have trouble paying for medicines?: No Do you have trouble getting transportation to medical appointments?: No Do you have trouble paying your heating and electricity bill?: No Do you have trouble taking care of your child, family member or friend?: I choose not to answer this question Do you have trouble with day-to-day activities such as bathing, preparing meals, shopping, managing finances, etc.?: Yes Are you currently unemployed and looking for a job?: No Are you interested in more education?: No Please select the resources that you would like help with: None Currently or been in a relationship where the following occur: No concerns reported THRIVE Score: 0 JONATHAN-7 AMB Questionnaire JONATHAN-7 Date JONATHAN - 7 assessed: 12/13/24 Source: Developed by Drs. Ricky Quintana, Jessica Norman, Michel Sanchez and colleagues, with an educational amita from [employer]. Review of Systems Const Denies chills, Denies fatigue, Denies fever(s), Denies headache(s) and Denies weakness ENT Denies dizziness and Denies headache(s) Card Denies dyspnea Resp Denies cough, Denies dyspnea, Denies wheezing and Denies other (shortness of breath) Musc Denies numbness and Denies tingling Neuro Denies dizziness, Denies headache(s), Denies numbness, Denies tingling and Denies weakness Psych Denies anxiety and Denies depression Endo Denies fatigue Aller/Immun Denies wheezing Physical exam (Primary Care) Vital Signs: Last Vital Signs Temp 97.7 F 12/29/24 14:45 Pulse 71 12/29/24 14:45 Resp 12 12/29/24 14:45 BP 122/68 12/29/24 14:45 Pulse Ox 97 12/29/24 14:45 Oxygen Delivery Method Room Air 12/29/24 14:45 BMI result Body Mass Index 22.0 Tobacco/Smoking Status: Tobacco use Status Tobacco use date assessed 12/29/24 12/29/24 14:47 Patient Tobacco Use Status Former Tobacco user 12/29/24 14:44 Tobacco use type Cigarette 12/29/24 14:44 e-Cigarette/Vaping Use Never Used 12/29/24 14:44 Thrive Assessment: Date of Thrive Assessment Date Thrive assessed 11/03/24 12/29/24 14:39 Currently or been in a relationship where the following occur: No concerns reported Const General: well developed; No acute distress Nutritional Appearance: well nourished [facility] Head: Yes normocephalic and Yes atraumatic Eyes General: appearance normal, both eyes and all related structures EOM: EOMs intact bilaterally Resp Effort & Inspection: normal respiratory effort Psych Affect: normal affect Coding Level of Care Code Est Pt Level 3 (58952) Diagnoses Primary hypertension I10 Hypertension type: primary hypertension Severe dementia with mood disturbance, unspecified dementia type F03.C3 Dementia behavioral or psychological symptom: with mood disturbance Dementia severity: severe Dementia type: unspecified type Assessment & Plan Assessment & Plan (1) Hypertension: Code(s): I10 - Essential (primary) hypertension Category: Medical Qualifiers: Hypertension type: primary hypertension Qualified Code(s): I10 - Essential (primary) hypertension Plan: Blood pressure is well controlled today. Goal is less than 140/90 She is taking amlodipine 5 mg each day and will continue this. She has not needed to take clonidine. Clonidine is prescribed as 0.05 mg b.i.d. PRN SBP greater than or equal to 160. Continue current medication regimen (2) Dementia: Comment: Advanced. Code(s): F03.90 - Unspecified dementia, unspecified severity, without behavioral disturbance, psychotic disturbance, mood disturbance, and anxiety Category: Medical Qualifiers: Dementia behavioral or psychological symptom: with mood disturbance Dementia severity: severe Dementia type: unspecified type Qualified Code(s): F03.C3 - Unspecified dementia, severe, with mood disturbance Plan: She is taking Seroquel as prescribed. Continue current medication regimen. Her daughter says this is working well. Medications: Changed From quetiapine (Seroquel) 1 tab at 5pm and 1 tab at bedtime. 50mg QD To quetiapine (Seroquel) 1 tab at 5pm and 1 tab at bedtime. 60 tabs 0RF 30 days
[2024-12-29 14:45] VITALS: BP 122/68; PULSE 71; RESP 12; TEMP 36.5; O2SAT 97; BMI 22.0
== END 2024-12-29 15:21 | disposition home or self-care (01) ==
LOC: HO.HMCFM 14:35
PROVIDERS: PCP Family Medicine; Visit Provider Family Medicine
DX: I10 Essential (primary) hypertension (principal); F03.C3 Unspecified dementia, severe, with mood disturbance

== ENCOUNTER → 2024-12-29 14:34 | Outpatient (BNVA) | payer MEDICARE, MEDICAID, SELFPAY | PROVIDERS: PCP Family Medicine; Visit Provider Family Medicine | DX: I10 Essential (primary) hypertension (principal); F03.C3 Unspecified dementia, severe, with mood disturbance | CPT/HCPCS: 99212 ==

== ENCOUNTER 2025-01-31 13:18 | Outpatient (REF) | payer MEDICARE, MEDICAID, SELFPAY | END 2025-01-31 13:19 | disposition home or self-care (01) | LOC: HO.LAB 13:18 | PROVIDERS: PCP Family Medicine; Visit Provider Nurse Practitioner Family | DX: N39.0 Urinary tract infection, site not specified (principal); Z79.899 Other long term (current) drug therapy | CPT/HCPCS: 51798; 81003; 99212 ==

== ENCOUNTER 2025-01-31 13:18 | Outpatient (AMB) | payer MEDICARE, MEDICAID, SELFPAY ==
--- NOTE | 2025-01-31 13:29 | MHC.OFFVIS ---
Intake Visit Reasons: 6m/PVR Intake Note: Patient is present for 6M/PVR Urology Medication:METHENAMINE HIPPURATE,VITAMIN C Antibiotic Allergy:NONE Blood Thinner:NONE Todays PVR:0ML'S Allergies aspirin (From [employer] Aspirin) Allergy (Unknown, Verified 01/31/25 21:44) nose bleeds Medication List - Last Reconciled 01/31/25 by LIZA ConleyP- amlodipine 5 mg PO DAILY 30 days ascorbic acid (vitamin C) 1 g PO DAILY 90 days cholecalciferol (vitamin D3) 50 mcg PO DAILY 30 days clonidine HCl 0.05 mg (1/2 x 0.1 mg) PO BID 90 days donepezil 5 mg PO BEDTIME melatonin 3 mg PO BEDTIME 30 days methenamine hippurate 1 g PO DAILY 90 days olopatadine 0.2% (Pataday Once Daily Relief) 1 drp ophthalmic (eye) DAILY PRN 30 days quetiapine (Seroquel) 1 tab at 5pm and 1 tab at bedtime. 30 days HPI Comments Details: Connie is a very pleasant 79-year-old Albanian-speaking female patient of Dr. Massey who was accompanied by her daughter at today's office visit. She has a past medical history of cervicalgia, dementia, sleep apnea, arthritis, smoker, and depression. She presents to the office today for follow-up of her recurrent urinary tract infections. She denies having had any bothersome urinary issues or concerns since her last office visit here. She denies having any UTIs and or UTI like symptoms since her last office visit here. In office urinalysis results reviewed with the patient today 3+ leukocytes negative nitrates which appears patient has baseline as previous urinalysis with 3+ leukocytes and negative nitrates. Patient with a history dementia and does answer yes or no questions. Patient's daughter reports no urological issues or concerns at this time. She reports patient is compliant with methenamine and vitamin-C as prescribed. Patient previously trialed Vagifem and Estrace cream however found this difficult to apply and adhere to therefore this has since been discontinued. PVR today 0 mL. She denies urinary urgency, urinary frequency, incontinence, nocturia, hematuria, dysuria, foul smelling urine, changes to urinary stream, flank pain, fever, and or chills. She is happy with her current voiding parameters. She otherwise offers no other issues or concerns at this time. [facility] Medical History Elevated homocysteine Anemia Screening for osteoporosis Cervicalgia Compression fracture of L1 vertebra Weakness of both lower extremities Dementia Sleep apnea Smoker Arthritis of both hands Depression Surgical History Hx of tubal ligation Family History Mother Bone cancer Daughter Substance abuse Mental health disorder Father Mental health disorder Social History (Updated 12/29/24 @ 14:44 by Petty Archuleta MA) Household Members Other:: lives with daughter- Housing: Apartment Are you a primary behavioral health care coordinator to a significant other at home: No Do you presently have visiting nurse or other home services: Yes ([employer] 18/11) Alcohol intake: never Patient Tobacco Use Status: Former Tobacco user Tobacco use type: Cigarette Cigarette Packs Per Day: 3 Cigarettes Per Day: 60.0 Years Smoked: 40+ e-Cigarette/Vaping Use: Never Used Second Hand Smoke Exposure: No service: No Current occupational status: retired Current occupational exposures/hazards: No Cognitive needs: No Hearing needs: No Vision needs: No Review of Systems Const All systems reviewed & are unremarkable except as noted in HPI and below Physical Exam Const General: cooperative, healthy appearing, comfortable, no acute distress, well developed, alert and awake Orientation/consciousness: patient oriented x3 Limitations: no limitations HEENT Head: Yes normal to inspection, Yes normocephalic and Yes atraumatic Ears: hearing grossly normal bilaterally Eyes General: appearance normal, both eyes and all related structures Neck Neck: Yes normal visual inspection and Yes trachea midline Chest Chest palpation & inspection: normal inspection of the chest Resp Effort & Inspection: normal respiratory effort and able to speak in complete sentences Cardio Rate: regular rate GI Inspection: Yes normal to inspection General: Yes no CVA tenderness Back/Spine/Pelvis Back: no CVA tenderness Skin General skin exam: no rashes or lesions noted Neuro General: patient oriented x3 Extrem General: Yes normal to inspection Psych Appearance: grossly normal and well kempt Mental Status: mental status grossly normal Speech and movement: Normal speech and movement present and Clear speech present Affect: normal affect Attitude: cooperative Thought process: Normal thought process present Thought content: Normal thought content present Insight: Limited insight present (Psych) Judgement: Limited judgement present (Psych) Office Procedures Post Void Residual Post Residual Void Post Void Residual (PVR): 0 [id number] Void Residual by ultrasound Results AMB Urinalysis, Automated UA Leukoctes 500 He/uL Last Edit by EVONNE Zhao on 01/31/25 15:47 UA Nitrite Negative Last Edit by Adriana Muse [facility] on 01/31/25 15:47 UA Urobilinogen 0.2 mg/dL Last Edit by Adriana Muse [facility] on 01/31/25 15:47 UA Protein 0 mg/dL Last Edit by Adriana Muse [facility] on 01/31/25 15:47 UA pH 6.0 Last Edit by Adriana Muse [facility] on 01/31/25 15:47 UA Blood 0 Will/uL Last Edit by Adriana Muse [facility] on 01/31/25 15:47 UA Specific Gaastra 1.015 Last Edit by Adriana Muse [facility] on 01/31/25 15:47 UA Ketone Negative Last Edit by Adriana Muse [facility] on 01/31/25 15:47 UA Bilirubin 0 mg/dL Last Edit by Adriana Muse [facility] on 01/31/25 15:47 UA Glucose 0 mg/dL Last Edit by Adriana Muse [facility] on 01/31/25 15:47 Results Reviewed Results Reviewed: Laboratory Last Values Urine pH (Auto) 6.0 01/31/25 15:46 Specific Gaastra (Auto) 1.015 01/31/25 15:46 Urine Protein (Auto) 0 mg/dL 01/31/25 15:46 Glucose (UA)(Auto) 0 mg/dL 01/31/25 15:46 Urine Ketones (Auto) Negative 01/31/25 15:46 Urine Blood (Auto) 0 Will/uL 01/31/25 15:46 Urine Nitrite (Auto) Negative 01/31/25 15:46 Urine Bilirubin (Auto) 0 mg/dL 01/31/25 15:46 Urine Urobilinogen (Auto) 0.2 mg/dL 01/31/25 15:46 Leukocyte Esterase (Auto) 500 He/uL 01/31/25 15:46 Assessment & Plan Assessment & Plan (1) Frequent UTI: Code(s): N39.0 - Urinary tract infection, site not specified Category: Medical Plan In office urinalysis results reviewed with the patient today and her family today; as noted above. PVR 0 mL. Continue methenamine and vitamin-C as prescribed. Patient currently denies any bothersome urinary issues or concerns. She denies any UTI like symptoms. Will continue with surveillance monitoring. Discussed UTI prevention with D mannose supplement, vitamin-C, increasing fluid intake, behavioral therapy with timed voiding, perineal hygiene, and management of constipation with stool softeners and increased fiber intake. Follow-up in 6 months with PVR; or sooner with any issues, concerns, and or questions. Orders: Orders AMB Urinalysis Automated Today Z13.9 - Encounter for screening, unspecified Medications: Refilled ascorbic acid (vitamin C) 1 g PO DAILY 90 caps 2RF 90 days methenamine hippurate 1 g PO DAILY 90 tabs 1RF 90 days Patient Instructions: The patient had an opportunity to ask questions regarding the treatment plan. All questions were answered. Physical exam, labs, and imaging were discussed and reviewed in detail. As well as risks, benefits, and discussion of treatment choices. No major barriers to understanding were identified. The patient expressed understanding and agreement with the above treatment plan. The patient was made aware they should contact our office by phone for worsening of their current condition, the appearance of new symptoms, or with any questions or concerns. Compliance is encouraged with any medications and follow up testing that is ordered. It is a privilege to be allowed the opportunity to participate in? your urological care.? Again, if you have any questions or concerns If you have any questions or concerns please do not hesitate to contact me. The office is [phone]. This note is constructed using voice recognition software. While every effort has been made to ensure accuracy gas combustion engineer errors may have been included. Yours sincerely, DAKOTA Conley Coding Level of Care Code Est Pt Level 3 (40641) Complex EM visit Add On G2211 Diagnoses Frequent UTI N39.0 CPT Codes Post Residual Void - PVR CPT Code: 35649-Lpjb Void Residual by ultrasound ([id number])
== END 2025-01-31 14:17 | disposition home or self-care (01) ==
LOC: HO.HUSH 13:19
PROVIDERS: PCP Family Medicine; Visit Provider Nurse Practitioner Family
DX: Z13.9 Encounter for screening, unspecified (principal); N39.0 Urinary tract infection, site not specified
CPT/HCPCS: 99213; G2211

== ENCOUNTER → 2025-02-03 11:30 | Outpatient (BNV) | payer MEDICARE, MEDICAID, SELFPAY | PROVIDERS: PCP Family Medicine; Visit Provider Radiology Diagnostic Radiology | DX: E28.39 Other primary ovarian failure (principal) | CPT/HCPCS: 77080 ==

== ENCOUNTER 2025-02-03 11:35 | Outpatient (REF) | payer MEDICARE, MEDICAID, SELFPAY ==
--- NOTE | ~2025-02-03 | MM_ITS ---
EXAMINATION: DXA BONE DENSITY AXIAL HISTORY: M81.0 - Age-related osteoporosis without current pathological fracture TECHNIQUE: [employer] Dual energy absorptiometry (DEXA) of the lumbar spine, total left hip, and femoral neck was performed. COMPARISON: Comparison is made with the prior examination dated 12/13/2022. FINDINGS: The bone mineral density of the lumbar spine is 0.529 g/cm2, corresponding to a T-score of -5.4, and a Z-score of -3.2. This is indicative of osteoporosis. This represents a BMD change of 16.3% compared to the prior exam. This is statistically significant. The bone mineral density of the left total hip is 0.591 g/cm2, corresponding to a T-score of -3.3, and a Z-score of -1.0. This is indicative of osteoporosis. This represents a BMD change of -4.4% compared to the prior exam. This is not statistically significant. The bone mineral density of the left femoral neck is 0.488 g/cm2, corresponding to a T-score of -4.0, and a Z-score of -1.6. This is indicative of osteoporosis. This represents a BMD change of -13.8% compared to the prior exam. FRACTURE RISK: The FRAX index suggests a ten year probability of major osteoporotic fracture of 39.6%, and of hip fracture 21.7%. MM/XR DEXA axial skeleton IMPRESSION: Based on bone mineral density, and according to World Health Organization (WHO) criteria, the diagnosis is consistent with osteoporosis. Statistically, 68% of repeat scans fall within 1 SD (+/- 0.010 g/cm2 for AP spine L1-L4) and 1 SD (+/- 0.012 g/cm2 for femur total) FRAX is a trademark of the [employer] [facility] [employer], a World Health Organization (WHO) Collaborating Center. Electronically signed by: Ricky Jerome MD 02/03/2025 12:06 PM EDT
== END 2025-02-03 11:36 | disposition home or self-care (01) ==
LOC: HO.MAMMO 11:35
PROVIDERS: PCP Family Medicine; Visit Provider Family Medicine
DX: M81.0 Age-related osteoporosis without current pathological fracture (principal)
CPT/HCPCS: 77080

== ENCOUNTER 2025-02-09 11:22 | Outpatient (AMB) | payer MEDICARE, MEDICAID, SELFPAY ==
--- NOTE | 2025-02-09 11:25 | MHC.PC.OV ---
Vital Signs 02/09/25 11:30 02/09/25 12:17 Height 5 ft 2 in Weight 124 lb 8 oz BMI 22.8 BP 150/69 H 138/72 Blood Pressure Location Rt brachial Rt brachial Position Sitting Sitting Respiration 16 Pulse 85 Pulse Source Pulse Oximeter Temp 97.9 F Temp Source Temporal Artery Scan Pulse Oximetry (%) 98 Oxygen Delivery Method Room Air Intake Visit Reasons: follow-up chronic conditions. 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 Name: refused pt w/daughter Information Interpreted: non-clinical & clinical Accompanied by: Daughter Is last menstrual period known: No Post menopausal: No Patient : No Allergies aspirin (From [employer] Aspirin) Allergy (Unknown, Verified 02/09/25 11:29) nose bleeds Tobacco use date assessed: 02/09/25 Fall risk assessment: No Falls in past year Last assessed Fall Risk: 02/09/25 Dental Screening Dental Screen Date: 02/09/25 Did you have a dental visit in the last 12 months?: No Did you have a dental problem in the last 6 months where you did not have access to dental care?: No Was dental information given to patient?: No HPI follow-up chronic conditions. HPI Details 79 y/o female with hx of dementia presents to f/u HTN, chronic conditions. BP today 150/69, 85p. They note she might be anxious about coming into the office. She is on amlodipine 5mg daily, clonidine. They do not have clonidine with them today. They note they tried to get her a mammogram but had difficulty doing so. She did have a more recent bone density test. Bone density test did show osteoporosis. HPI Comments History of Present Illness Details Documentation assistance for Chente Massey MD, was provided by Moisés Baltazar,? Customer Marketing Assistant on 02/09/2025 at 12:09 PM EST. I, Dr. Massey, have read, observed, and verified documentation. ? PFSH Medical History Elevated homocysteine Anemia Screening for osteoporosis Cervicalgia Compression fracture of L1 vertebra Weakness of both lower extremities Dementia Sleep apnea Smoker Arthritis of both hands Depression Surgical History Hx of tubal ligation Family History Mother Bone cancer Daughter Substance abuse Mental health disorder Father Mental health disorder Social History (Updated 12/29/24 @ 14:44 by Petty Archuleta MA) Household Members Other:: lives with daughter- Housing: Apartment Are you a primary day care worker to a significant other at home: No Do you presently have visiting nurse or other home services: Yes ([employer] 24/7) Alcohol intake: never Patient Tobacco Use Status: Former Tobacco user Tobacco use type: Cigarette Cigarette Packs Per Day: 3 Cigarettes Per Day: 60.0 Years Smoked: 40+ Packs Per Year: 0 Packs per year/per ci.00 e-Cigarette/Vaping Use: Never Used Second Hand Smoke Exposure: No Patient : No service: No Current occupational status: retired Current occupational exposures/hazards: No Cognitive needs: No Hearing needs: No Vision needs: No Questionnaire Thrive Questionnaire Date Thrive assessed: 11/03/24 I am a: Patient What is your living situation today?: I have a steady place to live Within the past 12 months, did the food you bought not last and you didn't have the money to get more?: I choose not to answer this question Within the past 12 months, did you worry whether your food would run out before you got money to buy more?: Never true Do you have trouble paying for medicines?: No Do you have trouble getting transportation to medical appointments?: No Do you have trouble paying your heating and electricity bill?: No Do you have trouble taking care of your child, family member or friend?: I choose not to answer this question Do you have trouble with day-to-day activities such as bathing, preparing meals, shopping, managing finances, etc.?: Yes Are you currently unemployed and looking for a job?: No Are you interested in more education?: No Please select the resources that you would like help with: None Currently or been in a relationship where the following occur: No concerns reported THRIVE Score: 0 JONATHAN-7 AMB Questionnaire JONATHAN-7 Date JONATHAN - 7 assessed: 12/13/24 Source: Developed by Drs. Ricky Quintana, Jessica Norman, Michel Sanchez and colleagues, with an educational amita from [employer]. Review of Systems Const Denies chills, Denies fatigue, Denies fever(s), Denies headache(s) and Denies weakness ENT Denies dizziness and Denies headache(s) Card Denies dyspnea Resp Denies cough, Denies dyspnea, Denies wheezing and Denies other (shortness of breath) Musc Denies numbness and Denies tingling Neuro Denies dizziness, Denies headache(s), Denies numbness, Denies tingling and Denies weakness Psych Denies anxiety and Denies depression Endo Denies fatigue Aller/Immun Denies wheezing Physical exam (Primary Care) Vital Signs: Last Vital Signs Temp 97.9 F 02/09/25 11:30 Pulse 85 02/09/25 11:30 Resp 16 02/09/25 11:30 BP 150/69 H 02/09/25 11:30 Pulse Ox 98 02/09/25 11:30 Oxygen Delivery Method Room Air 02/09/25 11:30 BMI result Body Mass Index 22.8 Tobacco/Smoking Status: Tobacco use Status Tobacco use date assessed 02/09/25 02/09/25 11:34 Patient Tobacco Use Status Former Tobacco user 02/09/25 11:34 Tobacco use type Cigarette 02/09/25 11:34 e-Cigarette/Vaping Use Never Used 02/09/25 11:34 Thrive Assessment: Date of Thrive Assessment Date Thrive assessed 11/03/24 02/09/25 11:34 Currently or been in a relationship where the following occur: No concerns reported Const General: well developed; No acute distress Nutritional Appearance: well nourished [facility] Head: Yes normocephalic and Yes atraumatic Eyes General: appearance normal, both eyes and all related structures Pupils: Equal, round and reactive pupils present EOM: EOMs intact bilaterally Resp Effort & Inspection: normal respiratory effort Auscultation: clear to auscultation bilaterally Cardio Rate: regular rate Rhythm: regular rhythm Heart sounds: S1 normal heart sound present, S2 normal heart sound present, no gallops, no murmurs and no rubs Neuro General: gait normal Cranial nerves: Yes Equal, round and reactive pupils present Psych Affect: normal affect Coding Level of Care Code Est Pt Level 4 (91792) Diagnoses Primary hypertension I10 Hypertension type: primary hypertension Severe dementia with mood disturbance, unspecified dementia type F03.C3 Dementia behavioral or psychological symptom: with mood disturbance Dementia severity: severe Dementia type: unspecified type Osteoporosis M81.0 Assessment & Plan Assessment & Plan (1) Hypertension: Code(s): I10 - Essential (primary) hypertension Category: Medical Qualifiers: Hypertension type: primary hypertension Qualified Code(s): I10 - Essential (primary) hypertension Plan: Blood pressure initially high but improves with relaxation. Continue amlodipine as prescribed Can use clonidine for spikes in blood pressure or high blood pressures secondary to anxiety. (2) Dementia: Comment: Advanced. Code(s): F03.90 - Unspecified dementia, unspecified severity, without behavioral disturbance, psychotic disturbance, mood disturbance, and anxiety Category: Medical Qualifiers: Dementia behavioral or psychological symptom: with mood disturbance Dementia severity: severe Dementia type: unspecified type Qualified Code(s): F03.C3 - Unspecified dementia, severe, with mood disturbance Plan: Continue donepezil Currently stable (3) Osteoporosis: Code(s): M81.0 - Age-related osteoporosis without current pathological fracture Category: Medical Plan: T-score improved from -6.0 to -5.4 in the past 2 years. Continue vitamin-D and good sources of calcium Added not think that she is a good candidate for a bisphosphonate as she has some difficulty with understanding and following instructions Plan Patient was unable to cooperate for mammogram. She is 79 years old with advanced dementia. We can discontinue screening for breast cancer. Family members agree.
[2025-02-09 11:30] VITALS: BP 150/69; PULSE 85; RESP 16; TEMP 36.6; O2SAT 98; BMI 22.8
[2025-02-09 12:17] VITALS: BP 138/72
== END 2025-02-09 12:19 | disposition home or self-care (01) ==
LOC: HO.HMCFM 11:22
PROVIDERS: PCP Family Medicine; Visit Provider Family Medicine
DX: I10 Essential (primary) hypertension (principal); F03.C3 Unspecified dementia, severe, with mood disturbance; M81.0 Age-related osteoporosis without current pathological fracture

== ENCOUNTER → 2025-02-09 11:22 | Outpatient (BNVA) | payer MEDICARE, MEDICAID, SELFPAY | PROVIDERS: PCP Family Medicine; Visit Provider Family Medicine | DX: I10 Essential (primary) hypertension (principal); F03.C3 Unspecified dementia, severe, with mood disturbance; M81.0 Age-related osteoporosis without current pathological fracture; Z79.899 Other long term (current) drug therapy | CPT/HCPCS: 99212 ==